=== PATIENT | female | born 1930 | race Caucasian/White ===

== ENCOUNTER 2016-05-27 10:24 | Inpatient (IN) ==
--- NOTE | 2016-05-27 10:51 | Emergency Department Note ---
SOB HPI - General Chief Complaint: Shortness of Breath/Dyspnea Stated Complaint: Shortness of breath/cough Time Seen by Provider: 05/27/16 10:47 Source: patient, family Mode of arrival: wheelchair Limitations: no limitations - History of Present Illness This patient was seen last Wednesday with a cough syndrome and was prescribed Zithromax. She continues to cough and feel short of breath and is not getting much better. Denies any other symptoms. Severity: moderate Improves with: oxygen Worsens with: nothing Known history of: COPD - Related Data Home Medications Medication Instructions Recorded Confirmed cholecalciferol (vitamin D3) 2,000 2,000 unit PO QDAY tab 11/26/14 04/29/16 unit tablet multivitamin tablet 1 tab PO QDAY tab 11/26/14 04/29/16 ondansetron 4 mg disintegrating 4 mg PO TID PRN tab 11/26/14 04/29/16 tablet lenalidomide 2.5 mg capsule 2.5 mg PO QDAY cap 03/30/16 04/29/16 ferrous sulfate 325 mg (65 mg 325 mg PO BID tab 04/29/16 04/29/16 iron) tablet triamterene 37.5 1 tab-cap PO DAILYP PRN 04/29/16 05/27/16 mg-hydrochlorothiazide 25 mg tablet Furosemide [Lasix] 20 mg PO DAILY 05/27/16 05/27/16 Ipratropium [Atrovent] 2.5 ml INHALATION Q4H 05/27/16 05/27/16 Previous Rx's Medication Instructions Recorded arformoterol 15 mcg/2 mL solution 2 ml INHALATION BID 30 Days 08/06/15 for nebulization budesonide 0.5 mg/2 mL suspension 0.5 mg INHALATION BID 90 Days 08/06/15 for nebulization potassium chloride ER 10 mEq 10 meq PO QDAY 90 Days 02/17/16 tablet,extended release escitalopram 20 mg tablet 40 mg PO QDAY 90 Days 02/25/16 alprazolam 0.5 mg tablet 0.5 mg PO BID 30 Days 03/30/16 Allergies Allergy/AdvReac Type Severity Reaction Status Date / Time Penicillins Allergy Intermediate Difficulty Verified 05/27/16 15:32 Breathing Review of Systems Constitutional: Denies: fever, chills Eyes: Denies: eye pain ENT ED: Denies: ear pain Cardiovascular: Denies: chest pain, palpitations Respiratory: Reports: cough, dyspnea Gastrointestinal: Denies: abdominal pain, nausea, vomiting Genitourinary: Denies: urgency Musculoskeletal: Denies: back pain Integumentary: Denies: rash Neurological: Denies: headache Psychiatric: Denies: anxiety Past Medical History - Past Medical History Medical history: Reports: cancer (myelodysplastic syndrome melanoma), COPD, hypertension, osteoporosis, other (hemorrhoid, psoriasis, melanoma, chronic anemia) Surgical history ED: Reports: orthopedic, other (back surgery), other (parotid gland tumor) Psychiatric history: Reports: anxiety, depression Physical Exam - General Limitations: no limitations General appearance: alert - Head Head exam: atraumatic - Eye Eye exam: Present: normal appearance - ENT ENT exam: normal exam - Neck Neck exam: Present: normal inspection - Chest Chest inspection: Present: normal inspection - Respiratory Respiratory exam: Present: other (scattered rhonchi) - Cardiovascular Cardiovascular exam: Present: regular rate, normal rhythm, normal heart sounds - Abdominal Exam Abdominal exam: Present: soft. Absent: distention, tenderness - Neurological Exam Neurological exam: Present: alert - Psychiatric Psychiatric exam: Present: normal affect - Skin Skin exam: Present: warm, dry Course Vital Signs Temperature 97.5 F L 05/27/16 10:24 Pulse Rate 85 05/27/16 10:24 Respiratory Rate 28 H 05/27/16 10:24 Blood Pressure 96/65 05/27/16 10:24 Pulse Oximetry (%) 92 05/27/16 10:24 Temperature 98.5 F 05/28/16 00:00 Pulse Rate 63 05/28/16 02:53 Respiratory Rate 24 05/28/16 02:53 Blood Pressure 109/58 05/28/16 02:53 Pulse Oximetry (%) 94 05/28/16 02:53 Shortness of Breath/Dyspnea - Lab Data Lab results reviewed: Yes I reviewed the patient's lab results. Result diagrams: 05/28/16 04:15 05/28/16 04:15 Lab Results 05/27/16 05/27/16 05/27/16 Range/Units 10:40 10:40 10:40 WBC 3.2 L (4.5-11.0) K/mcL RBC 3.88 L (4.00-5.20) M/mcL Hgb 11.8 L (12.0-15.0) g/dL Hct 38.3 (36.0-48.0) % MCV 98.8 (80.0-100.0) fL MCH 30.5 (26.0-34.0) pg MCHC 30.8 L (31.0-36.0) g/dL RDW 22.7 H (11.5-14.5) % Plt Count 154 (140-440) K/mcL MPV 10.8 H (7.4-10.4) fL Gran % 54.5 (38.0-78.0) % Lymph % (Auto) 22.1 (15.5-49.0) % [place] % (Auto) 19.7 H (1.0-9.0) % Eos % (Auto) 1.8 (0.0-7.0) % Baso % (Auto) 1.9 (0.0-2.0) % Gran # 1.7 L (1.8-8.0) K/mcL Lymph # 0.7 L (1.5-4.8) K/mcL [place] # 0.6 (0.1-0.9) K/mcL Eos # 0.1 (0.0-0.7) K/mcL Baso # 0.1 (0.0-0.3) K/mcL Differential Comment (()) VBG Lactic Acid (0.5-2.2) mmol/L Sodium 139 (133-145) mmol/L Potassium 3.6 (3.3-5.1) mmol/L Chloride 94 L (96-108) mmol/L Carbon Dioxide 35 H (22-30) mmol/L Anion Gap 10.0 (8-16) BUN 41 H (8-23) mg/dl Creatinine 1.3 H (0.6-1.1) mg/dl GFR Calculation 37 Glucose 129 H (70-105) mg/dL Hemoglobin A1c 4.6 (4.0-6.0) % HGB Estim Average Glucose 85 mg/dL Calcium 9.8 (8.6-10.4) mg/dl Total Bilirubin 1.2 H (0.0-1.0) mg/dL AST 8 (0-37) U/l ALT 14 (0-40) U/l Alkaline Phosphatase 73 (39-117) U/L Total Protein 6.5 (5.9-8.4) gm/dL Albumin 3.7 (3.2-5.2) gm/dL Globulin 2.8 (2.2-3.7) gm/dL Albumin/Globulin Ratio 1.3 (1.0-2.3) Urine Color Urine Appearance Urine pH (5.0-9.0) Ur Specific [place] (1.000-1.035) Urine Protein (NEG) mg/dL Urine Glucose (UA) (NEG) mg/dL Urine Ketones (NEG) mg/dL Urine Occult Blood (<0.03) mg/dL Urine Nitrate (NEG) Urine Bilirubin (NEG) mg/dL Urine Urobilinogen (NEG) mg/dL Ur Leukocyte Esterase (NEG) /uL Ur Culture Indicated? 05/27/16 05/27/16 Range/Units 11:09 13:29 WBC (4.5-11.0) K/mcL RBC (4.00-5.20) M/mcL Hgb (12.0-15.0) g/dL Hct (36.0-48.0) % MCV (80.0-100.0) fL MCH (26.0-34.0) pg MCHC (31.0-36.0) g/dL RDW (11.5-14.5) % Plt Count (140-440) K/mcL MPV (7.4-10.4) fL Gran % (38.0-78.0) % Lymph % (Auto) (15.5-49.0) % [place] % (Auto) (1.0-9.0) % Eos % (Auto) (0.0-7.0) % Baso % (Auto) (0.0-2.0) % Gran # (1.8-8.0) K/mcL Lymph # (1.5-4.8) K/mcL [place] # (0.1-0.9) K/mcL Eos # (0.0-0.7) K/mcL Baso # (0.0-0.3) K/mcL Differential Comment (()) VBG Lactic Acid 0.9 (0.5-2.2) mmol/L Sodium (133-145) mmol/L Potassium (3.3-5.1) mmol/L Chloride (96-108) mmol/L Carbon Dioxide (22-30) mmol/L Anion Gap (8-16) BUN (8-23) mg/dl Creatinine (0.6-1.1) mg/dl GFR Calculation Glucose (70-105) mg/dL Hemoglobin A1c (4.0-6.0) % HGB Estim Average Glucose mg/dL Calcium (8.6-10.4) mg/dl Total Bilirubin (0.0-1.0) mg/dL AST (0-37) U/l ALT (0-40) U/l Alkaline Phosphatase (39-117) U/L Total Protein (5.9-8.4) gm/dL Albumin (3.2-5.2) gm/dL Globulin (2.2-3.7) gm/dL Albumin/Globulin Ratio (1.0-2.3) Urine Color Yellow Urine Appearance Clear Urine pH 5.0 (5.0-9.0) Ur Specific [place] 1.015 (1.000-1.035) Urine Protein Neg (NEG) mg/dL Urine Glucose (UA) Negative (NEG) mg/dL Urine Ketones Neg (NEG) mg/dL Urine Occult Blood Neg (<0.03) mg/dL Urine Nitrate Neg (NEG) Urine Bilirubin Neg (NEG) mg/dL Urine Urobilinogen Neg (NEG) mg/dL Ur Leukocyte Esterase Neg (NEG) /uL Ur Culture Indicated? No - Radiology Data Radiology results reviewed: Yes I reviewed the patient's radiology results. (x- ray does show basilar infiltrates) Disposition Clinical Impression: Community acquired pneumonia Disposition: Xfer As Inpt ([facility]) Condition: Fair
[2016-05-27] MEDS ORDERED: IPRATROPIUM/ALBUTEROL 3 ML AMPUL.NEB NEB ONE (10:53)
[2016-05-27] MEDS: 0.9 % SODIUM CHLORIDE 1,000 ML IV SCH ×2 (11:23→15:10)
[2016-05-27 11:24] LABS: Basophils # (Auto) 0.1 K/mcL (0.0-0.3); Basophils % (Auto) 1.9 % (0.0-2.0); Eosinophils # (Auto) 0.1 K/mcL (0.0-0.7); Eosinophils % (Auto) 1.8 % (0.0-7.0); Granulocytes % (Auto) 54.5 % (38.0-78.0); Lymphocytes # (Auto) 0.7 K/mcL (1.5-4.8); Lymphocytes % (Auto) 22.1 % (15.5-49.0); Mean Cell Volume 98.8 fL (80.0-100.0); Mean Corpuscular HGB Conc 30.8 g/dL (31.0-36.0); Mean Corpuscular Hemoglobin 30.5 pg (26.0-34.0); Monocytes # (Auto) 0.6 K/mcL (0.1-0.9); Monocytes % (Auto) 19.7 % (1.0-9.0); Platelet Count 154 K/mcL (140-440); RBC 3.88 M/mcL (4.00-5.20); Red Cell Distribution Width 22.7 % (11.5-14.5)
--- NOTE | 2016-05-27 11:41 | XRay Report ---
CLINICAL INFORMATION: Cough and shortness of breath - history COPD COMPARISON: 05/19/2016 FINDINGS: The heart is borderline enlarged, but unchanged. Mediastinum and pulmonary vessels are normal. COPD changes with scattered scarring both lungs seen - as before. A small developing infiltrate in the left lateral base is noted with a possible small developing infiltrate in the right lateral base. Small bilateral pleural effusions IMPRESSION: Small bibasilar infiltrates and effusions. Severe COPD Interpreted and Authenticated by: Jamie Oropeza 05/27/16
[2016-05-27] MEDS ORDERED: cefTRIAXone 1 GM in DEXTROSE 5% IN WATER 50 ML IV ONE (11:45)
[2016-05-27] MEDS ORDERED: LEVOFLOXACIN 500 MG/100 ML BAG IV ONE (11:45)
[2016-05-27 11:52] LABS: ALT/SGPT 14 U/l (0-40); Albumin 3.7 gm/dL (3.2-5.2); Albumin/Globulin Ratio 1.3 (1.0-2.3); Alkaline Phosphatase 73 U/L (39-117); Blood Urea Nitrogen 41 mg/dl (8-23)
[2016-05-27 13:53] LABS: Appearance,Urine CLEAR; Bilirubin,Urine NEG (NEG); Color,Urine YELLOW; Glucose,Urine (UA) NEGATIVE (NEG); Leukocyte Esterase,Urine NEG /uL (NEG); Nitrate,Urine NEG (NEG); Protein,Urine NEG (NEG); Specific Gravity,Urine 1.015 (1.000-1.035); Urine Blood NEG mg/dL (<0.03); Urobilinogen,Urine NEG (NEG)
--- NOTE | 2016-05-27 15:13 | Internal Med History&Physical ---
Medical - H&P: HPI Patient information: Note initiated : 05/27/16 at 3:08 pm Service Date, if different from initiated Date: [] Patient: Rochelle Olivas 85 y/o F admitted on 05/27/16 for SOB/Cough. Chief Complaint: [] History of present illness: Ms. Olivas is a 85 year old female with a long-standing history of COPDand long past history of smoking. She was seen in the emergency room about one week ago with shortness of breath, and was diagnosed with early pneumonia. She was treated with a Z-Ulices. She has she really just has not gotten any better over the last week, and is having persistent cough, which is minimally productive. She continues to feel more short of breath than usual and feels weak. She denies fever or chills, headaches or dizziness, new eye or ear symptoms, sore throat, chest pain or palpitations, abdominal pain nausea or vomiting, diarrhea. She does have occasional constipation. She does admit that she has been steadily losing weight over the last several years, and has lost about 30 pounds. ER evaluation showed bibasilar pneumonia, and reported O2 saturation of 79% on 4 L initially, which eventually ramonita to 90%. Lactic acid is normal, white blood cell count is low, due to myelodysplasia. BUN/creatinine are elevated as is serum CO2. Medical History Abnormal electrocardiogram (Acute) Chronic abnormality on EKG, low level exercise cardiolite in 2005 with normal scan, declines restratification Acute exacerbation of chronic obstructive airways disease (Acute) Back pain (Acute) Low, currently on no analgesic Basal cell carcinoma (Acute) dermatology followup with Carlyn Rios Colon polyps (Acute 06/08/14) Hyperplastic and adenomatous polyps and angiodysplasia through DR Mcintyre. This is now on a five year sequencing. Constipation (Acute) Degenerative arthritis (Acute) Multi joint, currently on no analgesic. MRI on the hip in March of 2010, currently stable External hemorrhoid (Acute) Fecal impaction (Acute) Hip pain (Acute) Right Leg pain (Acute) Right Melanoma (Acute) on left lower extremity; dermatology followup with Carlyn Rios Osteopenia (Acute) Bone density in 2006 showing osteopenia; stable vitamin D level in 2009, declines rescreening Osteoporosis screening (Acute) Bone density in 2006 showing osteopenia; stable vitamin D level in 2009, declines rescreening Peptic ulcer disease (Acute) surgery done, currently stable Psoriasis (Acute) dermatology followup with Carlyn Rios Radiculopathy of leg (Acute) Right leg, Appears stable at this point Tobacco use (Acute) Ex smoker in 2005 with component of obstructive lung disease; pulmonary functions in Jan; last chest x ray in Feb and now every other year. Immunization are up to date. Scanning CT was discussed Anemia (Chronic 08/29/14) Currently stable--hematology 09/2015,bone marrow,myelodysplasia Anxiety (Chronic 06/25/14) COPD (chronic obstructive pulmonary disease) (Chronic) With increasing exertional dyspnea HOBBS (dyspnea on exertion) (Chronic) Edema (Chronic) Peripheral, improved with diuretic, probably secondary to core pulmonale Encounter for Health Maintenance Examination in Adult (Chronic) Hypertension (Chronic) Stable on diuretics Vitamin B12 deficiency (Chronic) Currently stable Angiodysplasia (Inactive) through Dr Mcintyre. This is now on five year sequencing Bursitis of hip (Inactive) Right Fibrocystic disease of breast (Inactive) Cystic breast change; mammogram every other year, which will be due next year Granulocytopenia (Inactive) Mild Headache (Inactive) Emergency room visit with severe headache in May; extensive workup described above, non recurrent Onychomycosis (Inactive) in the feet, currently completing Lamisil Parotid tumor (Inactive) Status postop benign parotid tumor in 1977 Rectal bleeding (Inactive 06/07/14) Surgical History History of colonoscopy (Acute 06/08/14) 03/10/2010-Hyperplastic and adenomatous polyps, and angiodysplasia through Dr Mcintyre. This is now on five year sequencing. History of lumbar discectomy (Acute) Previous, back pain flare with MRI in 01/2011, currently stable History of skin cancer (Acute) Melanoma off her leg in Jan History of parotidectomy (Inactive) Benign parotid tumor Medication List - Last Reconciled 04/29/16 by Nafisa Eason CMA [4L oxygen continuous with portable tank via nasal cannula ] alprazolam 0.5 mg PO BID 30 days arformoterol 2 mL Inhalation BID 30 days aspirin 81 mg PO QDAY budesonide 0.5 mg Inhalation BID 90 days cholecalciferol (vitamin D3) 2,000 units PO QDAY escitalopram (Lexapro) 40 mg (2 x 20 mg) PO QDAY 90 days ferrous sulfate (Feosol) 325 mg PO BID furosemide (Lasix) 20 mg PO QDAY 90 days hydrocortisone acetate 25 mg RC DAILY ipratropium bromide 2.5 mL Inhalation TID lenalidomide (Revlimid) 2.5 mg PO QDAY multivitamin tablet 1 tab PO QDAY ondansetron 4 mg PO TID 3 doses PRN potassium chloride ER 10 mEq PO QDAY 90 days triamterene-hydrochlorothiazid 37.5-25 mg (Maxzide-25mg) 1 tab-cap PO QDAY vitamin [id number] acid 500-400 mcg 1 tab PO QDAY Allergies/Adverse Reactions Penicillins Allergy (Unknown, Verified 04/29/16 11:28) Unknown Family History her father had heart problems. She doesn't recall much else in the way of family history. Cousins - colon cancer. Social History household members: alone housing: assisted living facility lives independently: No (Resides at [facility]) marital status: occupational status: retired smoking status: Former smoker- she smoked from age 18 to about age 70. alcohol intake frequency: a few times a month substance use type: does not use Medical - H&P: Meds Home Medications Medication Instructions Recorded Confirmed Type cholecalciferol (vitamin D3) 2,000 2,000 unit PO QDAY tab 11/26/14 04/29/16 History unit tablet multivitamin tablet 1 tab PO QDAY tab 11/26/14 04/29/16 History ondansetron 4 mg disintegrating 4 mg PO TID PRN tab 11/26/14 04/29/16 History tablet vitamin B12 500 mcg-folic acid 400 1 tab PO QDAY tab 11/26/14 04/29/16 History mcg tablet aspirin 81 mg tablet,delayed 81 mg PO QDAY 03/30/16 04/29/16 History release lenalidomide 2.5 mg capsule 2.5 mg PO QDAY cap 03/30/16 04/29/16 History ferrous sulfate 325 mg (65 mg 325 mg PO BID tab 04/29/16 04/29/16 History iron) tablet triamterene 37.5 1 tab-cap PO DAILYP PRN 04/29/16 05/27/16 History mg-hydrochlorothiazide 25 mg tablet Furosemide [Lasix] 20 mg PO DAILY 05/27/16 05/27/16 History Ipratropium [Atrovent] 2.5 ml INHALATION Q4H 05/27/16 05/27/16 History Allergies Allergy/AdvReac Type Severity Reaction Status Date / Time Penicillins Allergy Intermediate Difficulty Verified 05/27/16 15:32 Breathing Medical - H&P: Exam - Constitutional Vitals: Temp Pulse Resp BP Pulse Ox 97.5 F L 78 22 90/53 94 05/27/16 10:24 05/27/16 14:45 05/27/16 14:45 05/27/16 14:45 05/27/16 14:45 Exam: on exam, she is an elderly female who is a bit dyspneic. She is otherwise alert and cooperative. Head: Is normocephalic, atraumatic. temporal wasting is noted. eyes: PERRLA, EOMI, anicteric. Ears:TMs and canals are clear pharynx: Mucosa is very dry She is edentulous. Neck: Is supple, without obvious lymphadenopathy, JVD, thyromegaly,bruits. Cardiac exam: Shows an irregularly irregular rhythm, with controlled rate. There are no obvious murmurs, rubs, gallops. Lungs: She has decreased breath sounds throughout all lung terry, with a few crackles at the bases. There is no definite wheezing or rhonchi heard. She has a very wet loose sounding cough.she does not bring up much with this. Abdomen: Is soft and nontender with no obvious masses. Bowel sounds are active. Extremities:Show no cyanosis or clubbing. She has about 1+ pitting edema at the ankles.Neurologic exam: Is grossly nonfocal. Skin exam:Shows her to be extraordinarily thin, but otherwise there are no rashes or other worrisome lesions noted. Medical - H&P: Reslt - Labs CBC & Chem 7: 05/27/16 10:40 05/27/16 15:55 Labs: CBC differential shows 1700 granulocytes, 700 lymphocytes Lactic acid is normal at 0.9 urinalysis is within normal limits. EKG shows sinus arrhythmia with a variable rate ranging from about 92 120, with some mild ST sagging noted increased to 3 and F, and V3 for through V6 chest x-ray from May 27, 2016 shows small bibasilar infiltrates and effusions. There is borderline cardiomegaly and COPD changes are noted. There are small bilateral pleural effusions. troponin is less than 0.01 [place] 3806 sputum Gram stain shows moderate white blood cells many gram-negative bacilli, and few to moderate gram positive cocci and gram-positive bacilli Medical - H&P: A/P (1) Bilateral pneumonia Current visit: Yes Status: Acute (2) ARF (acute renal failure) Current visit: Yes Status: Acute (3) Myelodysplasia (myelodysplastic syndrome) Current visit: No Status: Chronic #1. Pulmonary. This patient presents with probable bilateral lower lobe pneumonia, which is not responding adequately to outpatient treatment. She presented with moderate hypoxia and dehydration today. She has been admitted for more aggressive care. -cover with IV Rocephin. She is status post complete course of Zithromax.-- -Bronchodilators, oxygen, pulmonary toilet.- -IV steroids. -d-dimer is mildly positive, so she does not improve quickly, we may check a CT angiogram. #2. Acute renal failure. -iV fluid hydration. #3. CODE STATUS:The patient and her son agreed to a DNR CODE STATUS. #4. DVT prophylaxis: Subcutaneous heparin. #5. Neutropenia, in the setting of myelodysplasia. Continue to follow. this visit took about 60 minutes, to review the patient's records, review her case with the ER M.Karan, interview and examine her, and write orders.
[2016-05-27] MEDS ORDERED: 0.9 % SODIUM CHLORIDE 1,000 ML IV SCH (15:17)
[2016-05-27] MEDS ORDERED: MAGNESIUM HYDROXIDE 30 ML ORAL.SUSP PO PRN (15:17)
[2016-05-27] MEDS ORDERED: DOCUSATE SODIUM 100 MG CAPSULE PO PRN (15:17)
[2016-05-27] MEDS ORDERED: ALBUTEROL SULFATE 2.5 MG/3 ML NEBULIZER NEB PRN (15:17)
[2016-05-27] MEDS ORDERED: ONDANSETRON 4 MG/2 ML VIAL IV PRN (15:17)
[2016-05-27] MEDS: POTASSIUM CHLORIDE 20 MEQ in 0.45 % SODIUM CHLORIDE 1,000 ML IV SCH (16:30)
[2016-05-27 17:04] LABS: ALT/SGPT 10 U/l (0-40); Albumin 2.9 gm/dL (3.2-5.2); Albumin/Globulin Ratio 1.2 (1.0-2.3); Alkaline Phosphatase 57 U/L (39-117); Bilirubin,Direct 0.2 mg/dL (0.0-0.3); Blood Urea Nitrogen 36 mg/dl (8-23); Gamma Glutamyl Transpeptidase 8 U/L (5-36); Magnesium 2.1 mg/dL (1.6-2.5); Phosphorous 3.2 mg/dL (2.7-4.5); Uric Acid 7.4 mg/dL (2.5-8.0)
[2016-05-27] MEDS: metroNIDAZOLE 500 MG/100 ML BAG IV SCH ×2 (18:01→23:21)
[2016-05-27 18:15] LABS: Hemoglobin A1C 4.6 % HGB (4.0-6.0)
[2016-05-27] MEDS: IPRATROPIUM/ALBUTEROL 3 ML AMPUL.NEB NEB SCH (18:21)
[2016-05-27] MEDS: HEPARIN 5,000 UNIT/ML VIAL SQ SCH (20:44)
[2016-05-27] MEDS: methylPREDNISolone SOD SUCC 125 MG/2 ML VIAL IV SCH (20:46)
[2016-05-28] MEDS: IPRATROPIUM/ALBUTEROL 3 ML AMPUL.NEB NEB SCH ×4 (03:00→20:00)
[2016-05-28] MEDS: metroNIDAZOLE 500 MG/100 ML BAG IV SCH ×3 (05:44→21:25)
[2016-05-28 06:11] LABS: ALT/SGPT 9 U/l (0-40); Albumin 2.8 gm/dL (3.2-5.2); Alkaline Phosphatase 58 U/L (39-117); Bilirubin,Direct < 0.2 mg/dL (0.0-0.3); Blood Urea Nitrogen 33 mg/dl (8-23); Gamma Glutamyl Transpeptidase 8 U/L (5-36); Magnesium 2.1 mg/dL (1.6-2.5); Phosphorous 3.4 mg/dL (2.7-4.5); Uric Acid 7.1 mg/dL (2.5-8.0)
[2016-05-28 06:48] LABS: Basophils # (Auto) 0 K/mcL (0.0-0.3); Basophils % (Auto) 1.4 % (0.0-2.0); Eosinophils # (Auto) 0 K/mcL (0.0-0.7); Eosinophils % (Auto) 0.4 % (0.0-7.0); Lymphocytes # (Auto) 0.3 K/mcL (1.5-4.8); Lymphocytes % (Auto) 15.4 % (15.5-49.0); Mean Cell Volume 98.6 fL (80.0-100.0); Mean Corpuscular HGB Conc 31.5 g/dL (31.0-36.0); Monocytes # (Auto) 0.2 K/mcL (0.1-0.9); Monocytes % (Auto) 9.8 % (1.0-9.0); Platelet Count 105 K/mcL (140-440); RBC 3.33 M/mcL (4.00-5.20); Red Cell Distribution Width 22.6 % (11.5-14.5)
[2016-05-28] MEDS: cefTRIAXone 1 GM in DEXTROSE 5% IN WATER 50 ML IV SCH (09:00)
[2016-05-28] MEDS: POTASSIUM CHLORIDE 20 MEQ in 0.45 % SODIUM CHLORIDE 1,000 ML IV SCH ×3 (09:51→21:25)
[2016-05-28] MEDS: ASPIRIN 325 MG ENTERIC COATED TABLET PO SCH (10:33)
[2016-05-28] MEDS: FUROSEMIDE 20 MG TABLET PO SCH (10:33)
[2016-05-28] MEDS: ALPRAZolam 0.5 MG TABLET PO PRN ×2 (10:33→17:25)
[2016-05-28] MEDS: HEPARIN 5,000 UNIT/ML VIAL SQ SCH ×2 (10:33→21:25)
[2016-05-28] MEDS: methylPREDNISolone SOD SUCC 125 MG/2 ML VIAL IV SCH ×2 (10:33→21:25)
[2016-05-28] MEDS: VITAMIN D3 1,000 UNIT TABLET PO SCH (11:10)
[2016-05-28] MEDS: POTASSIUM CHLORIDE 10 MEQ TABLET PO SCH (11:10)
[2016-05-28] MEDS: ESCITALOPRAM 20 MG TABLET PO SCH (11:10)
--- NOTE | 2016-05-28 13:18 | Internal Med Progress Note ---
Medical - PN: Subj Patient information: Note initiated : 05/28/16 at 1:18 pm Service Date, if different from initiated Date: [] Patient: Rochelle Olivas 85 y/o F admitted on 05/27/16 for SOB/Cough, Pneumonia. Chief Complaint: [] Interval history: May 27, 2016;History of present illness: Ms. Olivas is a 85 year old female with a long-standing history of COPDand long past history of smoking. She was seen in the emergency room about one week ago with shortness of breath, and was diagnosed with early pneumonia. She was treated with a Z-Ulices. She has she really just has not gotten any better over the last week, and is having persistent cough, which is minimally productive. She continues to feel more short of breath than usual and feels weak. She denies fever or chills, headaches or dizziness, new eye or ear symptoms, sore throat, chest pain or palpitations, abdominal pain nausea or vomiting, diarrhea. She does have occasional constipation. She does admit that she has been steadily losing weight over the last several years, and has lost about 30 pounds. ER evaluation showed bibasilar pneumonia, and reported O2 saturation of 79% on 4 L initially, which eventually ramonita to 90%. Lactic acid is normal, white blood cell count is low, due to myelodysplasia. BUN/creatinine are elevated as is serum CO2. May 28, 2016: The patient is feeling quite a bit better today, although she continues to have a wet and weak cough. She is using a Yankauer suction device to clear her pharynx, and says that is working well. She is a little less short of breath than yesterday, and has less wheezing.. She continues to be quite weak when physical therapy tries to stand her up. She notes that the nebulizers here seemed to work better than her nebulizers at home, and wonders if her machine is too weak. he thinks she might have a little bit of constipation. She otherwise denies fever or chills, chest pain or palpitations, abdominal pain, nausea or vomiting , dysuria. - Constitutional Vitals: Vital Signs Temp Pulse Resp BP Pulse Ox 98.3 F 66 20 94/55 99 05/28/16 11:41 05/28/16 11:41 05/28/16 11:41 05/28/16 11:41 05/28/16 11:41 Period Temp Pulse Resp BP Sys/[place] Pulse Ox Last 24 Hr 97.7 F-98.7 F 59-85 16-24 91-109/52-69 91-100 Intake and Output 05/27/16 05/28/16 05/28/16 21:59 05:59 13:59 Intake Total 1050 / 1050 200 / 200 2500 / 2500 Output Total 200 / 200 200 / 200 500 / 500 Balance 850 / 850 0 / 0 1999 Intake & Output: Intake & Output 05/27/16 05/28/16 05/28/16 21:59 05:59 13:59 Intake Total 1050 / 1050 200 / 200 2500 / 2500 Output Total 200 / 200 200 / 200 500 / 500 Balance 850 / 850 0 / 0 1999 Intake: IV 800 / 800 100 / 100 2160 / 2160 Sodium Chloride 0.9% 1, 700 / 700 000 ml @ 250 mls/hr IV . Q4H TIFFANY Rx#:[id number] Potassium Chloride 20 Meq 1010 / 1010 In Sodium Chloride 0.45% 1,000 ml @ 75 mls/hr IV .[id number] TIFFANY Rx#: [id number] Dextrose 5% in Water 50 50 / 50 ml @ 100 mls/hr IV DAILY TIFFANY with Rocephin 1 gm Rx #:[id number] Oral 250 / 250 100 / 100 340 / 340 Output: Void Amount 200 / 200 200 / 200 500 / 500 Other: Meal Dinner Breakfast Percent of Meal Consumed 25% 75% # Voids 1 # Bowel Movements 1 Exam: on exam, she is an extremely slender and frail female, in no acute distress. She continues to have a weak and wet cough. neck is supple without obvious lymphadenopathy or JVD. Cardiac exam shows a rather irregular rhythm. Lungs have fairly decreased breath sounds throughout, but are mostly clear otherwise today. Extremities show about 1+ pitting edema. Neurologic exam is grossly nonfocal. Medical - PN: Obj Da - Labs CBC & Chem 7: 05/28/16 04:15 05/28/16 04:15 Labs: Abnormal Lab Results 05/28/16 05/28/16 05/27/16 04:15 04:15 15:55 WBC 2.1 L RBC 3.33 L Hgb 10.3 L Hct 32.8 L RDW 22.6 H Plt Count 105 L MPV 11.3 H Lymph % (Auto) 15.4 L [place] % (Auto) 9.8 H Gran # 1.5 L Lymph # 0.3 L D-Dimer 1.26 H Carbon Dioxide BUN 33 H Glucose 137 H NT-Pro-B Natriuret Pep Total Protein 5.5 L Albumin 2.8 L 05/27/16 05/27/16 15:55 15:55 WBC RBC Hgb Hct RDW Plt Count MPV Lymph % (Auto) [place] % (Auto) Gran # Lymph # D-Dimer Carbon Dioxide 34 H BUN 36 H Glucose NT-Pro-B Natriuret Pep 3806.0 H Total Protein 5.4 L Albumin 2.9 L Lactic acid is normal at 0.9, follow-up lactic acid was 1.2 urinalysis is within normal limits. EKG shows sinus arrhythmia with a variable rate ranging from about 92 120, with some mild ST sagging noted increased to 3 and F, and V3 for through V6 chest x-ray from May 27, 2016 shows small bibasilar infiltrates and effusions. There is borderline cardiomegaly and COPD changes are noted. There are small bilateral pleural effusions. troponin is less than 0.01 BNP is elevated at 3806 -dimer is 1.26. sputum Gram stain shows moderate white blood cells many gram-negative bacilli, and few to moderate gram positive cocci and gram-positive bacilli blood cultures are negative so far. Meds: Medications Acetaminophen (Tylenol) 650 mg PO Q6HP PRN PRN Reason: PAIN/FEVER > 101 Albuterol Sulfate (Ventolin) 2.5 mg NEB Q4HRT PRN PRN Reason: Shortness Of Breath Or Wheezing Albuterol/Ipratropium (Duoneb) 3 ml NEB Q6HRT [facility] Last Admin: 05/28/16 07:40 Dose: 3 ml Alprazolam (Xanax) 0.5 mg PO TIDP PRN PRN Reason: Anxiety Last Admin: 05/28/16 10:33 Dose: 0.5 mg Aspirin (Ecotrin) 81 mg PO DAILY [facility] Last Admin: 05/28/16 10:33 Dose: 81 mg Docusate Sodium (Colace) 100 mg PO BID PRN PRN Reason: Constipation Escitalopram Oxalate (Lexapro) 40 mg PO QDAY [facility] Last Admin: 05/28/16 11:10 Dose: 40 mg Furosemide (Lasix) 20 mg PO DAILY [facility] Last Admin: 05/28/16 10:33 Dose: 20 mg Heparin Sodium (Porcine) (Heparin) 5,000 unit SQ Q12 [facility] Last Admin: 05/28/16 10:33 Dose: 5,000 unit Potassium Chloride 20 meq/ (Sodium Chloride) 1,010 mls @ 75 mls/hr IV .[id number] [facility] Last Admin: 05/28/16 10:34 Dose: 75 mls/hr Ceftriaxone Sodium 1 gm/ (Dextrose) 50 mls @ 100 mls/hr IV DAILY [facility] Last Infusion: 05/28/16 09:30 Dose: Infused Metronidazole (Flagyl) 500 mg in 100 mls @ 100 mls/hr IV Q8 [facility] Last Infusion: 05/28/16 06:54 Dose: Infused Magnesium Hydroxide (Milk Of Magnesia) 30 ml PO DAILYP PRN PRN Reason: Constipation Methylprednisolone Sodium Succinate (Solu-Medrol) 80 mg IV Q12 [facility] Last Admin: 05/28/16 10:33 Dose: 80 mg Ondansetron HCl (Zofran) 4 mg IV Q4HP PRN PRN Reason: Nausea And Vomiting Potassium Chloride (Kdur) 10 meq PO QAMCC [facility] Last Admin: 05/28/16 11:10 Dose: 10 meq Vitamin D (Vitamin D3) 2,000 unit PO DAILY [facility] Last Admin: 05/28/16 11:10 Dose: 2,000 unit Medical - PN: A/P - Time Spent With Patient Total time spent is greater than 50% in coordination of care (as documented) at patient's floor/unit and/or counseling patient: (1) Bilateral pneumonia Status: Acute Current Visit: Yes (2) ARF (acute renal failure) Status: Acute Current Visit: Yes (3) Myelodysplasia (myelodysplastic syndrome) Status: Chronic Current Visit: No - Narrative A/P Narrative: #1. Pulmonary. This patient presents with probable bilateral lower lobe pneumonia, which is not responding adequately to outpatient treatment. She presented with moderate hypoxia and dehydration. She has been admitted for more aggressive care. -overall, she does appear quite a bit improved today, but still quite weak. Continue with current treatment plan. -covered with IV Rocephin. She is status post complete course of Zithromax.-- -Bronchodilators, oxygen, pulmonary toilet.- -IV steroids. -sputum culture ID and sensitivity is still pending. -d-dimer is mildly positive, so she does not improve quickly, we may check a CT angiogram. #2. Acute renal failure. -BUN/creatinine are improving with iV fluid hydration. #3. CODE STATUS:The patient and her son agreed to a DNR CODE STATUS. #4. DVT prophylaxis: Subcutaneous heparin. #5. Neutropenia, in the setting of myelodysplasia. Continue to follow. #6. GI. Add Colace for concerns about constipation. approximately 30 minutes has been sent so far today, reviewing test results, interviewing and examining the patient, reviewing plan of care with she and her nurse, and writing orders. Medical - PN: Qual - Stroke Symptom Onset Unknown: No - VTE Deep Vein Thrombosis/Pulmonary Embolism Present on Admission: No
[2016-05-29] MEDS: IPRATROPIUM/ALBUTEROL 3 ML AMPUL.NEB NEB SCH ×5 (00:30→18:11)
[2016-05-29] MEDS: metroNIDAZOLE 500 MG/100 ML BAG IV SCH ×3 (05:11→22:31)
[2016-05-29 06:12] LABS: Basophils # (Auto) 0 K/mcL (0.0-0.3); Basophils % (Auto) 0.6 % (0.0-2.0); Eosinophils # (Auto) 0 K/mcL (0.0-0.7); Eosinophils % (Auto) 0.1 % (0.0-7.0); Granulocytes % (Auto) 78.7 % (38.0-78.0); Lymphocytes # (Auto) 0.2 K/mcL (1.5-4.8); Lymphocytes % (Auto) 7.4 % (15.5-49.0); Mean Cell Volume 100.1 fL (80.0-100.0); Mean Corpuscular Hemoglobin 31.1 pg (26.0-34.0); Monocytes # (Auto) 0.4 K/mcL (0.1-0.9); Monocytes % (Auto) 13.2 % (1.0-9.0); Platelet Count 123 K/mcL (140-440); RBC 3.29 M/mcL (4.00-5.20); Red Cell Distribution Width 22.8 % (11.5-14.5)
[2016-05-29 06:42] LABS: ALT/SGPT 10 U/l (0-40); Albumin 2.8 gm/dL (3.2-5.2); Albumin/Globulin Ratio 1.2 (1.0-2.3); Alkaline Phosphatase 55 U/L (39-117); Bilirubin,Direct < 0.2 mg/dL (0.0-0.3); Blood Urea Nitrogen 35 mg/dl (8-23); Gamma Glutamyl Transpeptidase 8 U/L (5-36); Phosphorous 3.1 mg/dL (2.7-4.5); Uric Acid 7.5 mg/dL (2.5-8.0)
[2016-05-29] MEDS: HEPARIN 5,000 UNIT/ML VIAL SQ SCH ×2 (09:21→22:32)
[2016-05-29] MEDS: VITAMIN D3 1,000 UNIT TABLET PO SCH (09:21)
[2016-05-29] MEDS: POTASSIUM CHLORIDE 10 MEQ TABLET PO SCH (09:22)
[2016-05-29] MEDS: FUROSEMIDE 20 MG TABLET PO SCH (09:22)
[2016-05-29] MEDS: POTASSIUM CHLORIDE 20 MEQ in 0.45 % SODIUM CHLORIDE 1,000 ML IV SCH ×2 (09:23→14:12)
[2016-05-29] MEDS: ESCITALOPRAM 20 MG TABLET PO SCH (09:23)
[2016-05-29] MEDS: cefTRIAXone 1 GM in DEXTROSE 5% IN WATER 50 ML IV SCH (09:23)
[2016-05-29] MEDS: methylPREDNISolone SOD SUCC 125 MG/2 ML VIAL IV SCH ×2 (09:41→22:40)
--- NOTE | 2016-05-29 09:52 | XRay Report ---
CLINICAL INFORMATION: Follow pneumonia COMPARISON: 05/27/2016 FINDINGS: Moderate cardiomegaly has increased from previous study. Mediastinum is unremarkable. The pulmonary vessels are now moderately distended and there is mild interstitial edema throughout both lungs. Small vague infiltrates in both lateral bases have worsened slightly. No definite effusions. IMPRESSION: Mild CHF - new Small infiltrates in both lateral bases - slight progression Interpreted and Authenticated by: Jamie Oropeza 05/29/16
[2016-05-29] MEDS: ASPIRIN 81 MG TAB.CHEW PO SCH (12:38)
[2016-05-29] MEDS: ASPIRIN 325 MG ENTERIC COATED TABLET PO SCH (13:00)
--- NOTE | 2016-05-29 16:43 | Internal Med Progress Note ---
Medical - PN: Subj Patient information: Note initiated : 05/29/16 at 4:43 pm Service Date, if different from initiated Date: [] Patient: Rochelle Olivas 85 y/o F admitted on 05/27/16 for SOB/Cough, Pneumonia. Chief Complaint: [] Interval history: May 27, 2016;History of present illness: Ms. Olivas is a 85 year old female with a long-standing history of COPDand long past history of smoking. She was seen in the emergency room about one week ago with shortness of breath, and was diagnosed with early pneumonia. She was treated with a Z-Ulices. She has she really just has not gotten any better over the last week, and is having persistent cough, which is minimally productive. She continues to feel more short of breath than usual and feels weak. She denies fever or chills, headaches or dizziness, new eye or ear symptoms, sore throat, chest pain or palpitations, abdominal pain nausea or vomiting, diarrhea. She does have occasional constipation. She does admit that she has been steadily losing weight over the last several years, and has lost about 30 pounds. ER evaluation showed bibasilar pneumonia, and reported O2 saturation of 79% on 4 L initially, which eventually ramonita to 90%. Lactic acid is normal, white blood cell count is low, due to myelodysplasia. BUN/creatinine are elevated as is serum CO2. May 28, 2016: The patient is feeling quite a bit better today, although she continues to have a wet and weak cough. She is using a Yankauer suction device to clear her pharynx, and says that is working well. She is a little less short of breath than yesterday, and has less wheezing.. She continues to be quite weak when physical therapy tries to stand her up. She notes that the nebulizers here seemed to work better than her nebulizers at home, and wonders if her machine is too weak. he thinks she might have a little bit of constipation. She otherwise denies fever or chills, chest pain or palpitations, abdominal pain, nausea or vomiting , dysuria. May 29, 2016: This morning, the patient was eating yogurt, and started to cough, and had trouble stopping. She became short of breath during this episode. She believes she is having intermittent postnasal drip, and at this causes coughing spasms. she was having some increased shortness of breath, but that improved after coughing stopped. -she denies fever or chills, chest pain or palpitations, abdominal painor nausea or vomiting or diarrhea, or dysuria. -she was offereda nutritional supplement drink last night, but claims it gave her cramps, so she does not want to do that anymore. - Constitutional Vitals: Vital Signs Temp Pulse Resp BP Pulse Ox 98.2 F 72 24 113/63 90 05/29/16 12:00 05/29/16 13:55 05/29/16 13:55 05/29/16 12:00 05/29/16 12:00 Period Temp Pulse Resp BP Sys/[place] Pulse Ox Last 24 Hr 98.0 F-98.9 F 64-166 18-25 102-131/63-85 90-98 Intake and Output 05/29/16 05/29/16 05/29/16 05:59 13:59 21:59 Intake Total 100 / 100 1160 / 1160 100 / 100 Output Total 200 / 200 600 / 600 Balance -100 / -100 560 / 560 100 / 100 Intake & Output: Intake & Output 05/29/16 05/29/16 05/29/16 05:59 13:59 21:59 Intake Total 100 / 100 1160 / 1160 100 / 100 Output Total 200 / 200 600 / 600 Balance -100 / -100 560 / 560 100 / 100 Intake: IV 100 / 100 1160 / 1160 100 / 100 Potassium Chloride 20 Meq 1010 / 1010 In Sodium Chloride 0.45% 1,000 ml @ 75 mls/hr IV .[id number] TIFFANY Rx#: [id number] Dextrose 5% in Water 50 50 / 50 ml @ 100 mls/hr IV DAILY TIFFANY with Rocephin 1 gm Rx #:[id number] Oral 0 / 0 Output: Void Amount 200 / 200 600 / 600 Other: Meal Breakfast Percent of Meal Consumed 40 Feeding Ability Assist with Tray Set Up # Voids 0 1 Exam: on exam, she is extraordinarily frail in appearance. Neck shows no obvious JVD. Cardiac exam shows a rather irregular rhythm. Lungs: Have markedly decreased breath sounds throughout, with scattered wheezes. Abdomen is soft and nontender. Extremities show 1+ pitting edema at the ankles.. Medical - PN: Obj Da - Labs CBC & Chem 7: 05/29/16 04:40 05/29/16 04:30 Labs: Abnormal Lab Results 05/29/16 05/29/16 05/28/16 04:40 04:30 04:15 WBC 3.4 L RBC 3.29 L Hgb 10.2 L Hct 32.9 L MCV 100.1 H RDW 22.8 H Plt Count 123 L MPV 11.2 H Gran % 78.7 H Lymph % (Auto) 7.4 L [place] % (Auto) 13.2 H Gran # Lymph # 0.2 L D-Dimer Carbon Dioxide 31 H BUN 35 H 33 H Glucose 148 H 137 H NT-Pro-B Natriuret Pep Total Protein 5.2 L 5.5 L Albumin 2.8 L 2.8 L 05/28/16 05/27/16 05/27/16 04:15 15:55 15:55 WBC 2.1 L RBC 3.33 L Hgb 10.3 L Hct 32.8 L MCV RDW 22.6 H Plt Count 105 L MPV 11.3 H Gran % Lymph % (Auto) 15.4 L [place] % (Auto) 9.8 H Gran # 1.5 L Lymph # 0.3 L D-Dimer 1.26 H Carbon Dioxide BUN Glucose NT-Pro-B Natriuret Pep 3806.0 H Total Protein Albumin 05/27/16 15:55 WBC RBC Hgb Hct MCV RDW Plt Count MPV Gran % Lymph % (Auto) [place] % (Auto) Gran # Lymph # D-Dimer Carbon Dioxide 34 H BUN 36 H Glucose NT-Pro-B Natriuret Pep Total Protein 5.4 L Albumin 2.9 L Lactic acid is normal at 0.9, follow-up lactic acid was 1.2 urinalysis is within normal limits. EKG shows sinus arrhythmia with a variable rate ranging from about 92 120, with some mild ST sagging noted increased to 3 and F, and V3 for through V6 chest x-ray from May 27, 2016 shows small bibasilar infiltrates and effusions. There is borderline cardiomegaly and COPD changes are noted. There are small bilateral pleural effusions. troponin is less than 0.01 BNP is elevated at 3806 -dimer is 1.26. sputum Gram stain shows moderate white blood cells many gram-negative bacilli, and few to moderate gram positive cocci and gram-positive bacilli. sputum culture is growing Haemophilus influenza , which should be sensitive to ampicillin blood cultures are negative so far. Meds: Medications Acetaminophen (Tylenol) 650 mg PO Q6HP PRN PRN Reason: PAIN/FEVER > 101 Albuterol Sulfate (Ventolin) 2.5 mg NEB Q4HRT PRN PRN Reason: Shortness Of Breath Or Wheezing Last Admin: 05/29/16 07:31 Dose: 2.5 mg Albuterol/Ipratropium (Duoneb) 3 ml NEB Q6HRT [facility] Last Admin: 05/29/16 13:55 Dose: 3 ml Alprazolam (Xanax) 0.5 mg PO TIDP PRN PRN Reason: Anxiety Last Admin: 05/28/16 17:25 Dose: 0.5 mg Aspirin (Aspirin) 81 mg PO DAILY [facility] Last Admin: 05/29/16 12:38 Dose: 81 mg Docusate Sodium (Colace) 100 mg PO BID PRN PRN Reason: Constipation Escitalopram Oxalate (Lexapro) 40 mg PO QDAY [facility] Last Admin: 05/29/16 09:23 Dose: 40 mg Furosemide (Lasix) 20 mg PO DAILY [facility] Last Admin: 05/29/16 09:22 Dose: 20 mg Heparin Sodium (Porcine) (Heparin) 5,000 unit SQ Q12 [facility] Last Admin: 05/29/16 09:21 Dose: 5,000 unit Potassium Chloride 20 meq/ (Sodium Chloride) 1,010 mls @ 75 mls/hr IV .[id number] [facility] Last Admin: 05/29/16 14:12 Dose: 75 mls/hr Ceftriaxone Sodium 1 gm/ (Dextrose) 50 mls @ 100 mls/hr IV DAILY [facility] Last Infusion: 05/29/16 09:53 Dose: Infused Metronidazole (Flagyl) 500 mg in 100 mls @ 100 mls/hr IV Q8 [facility] Last Infusion: 05/29/16 15:55 Dose: Infused Magnesium Hydroxide (Milk Of Magnesia) 30 ml PO DAILYP PRN PRN Reason: Constipation Methylprednisolone Sodium Succinate (Solu-Medrol) 80 mg IV Q12 [facility] Last Admin: 05/29/16 09:41 Dose: 80 mg Ondansetron HCl (Zofran) 4 mg IV Q4HP PRN PRN Reason: Nausea And Vomiting Potassium [facility] ([facility]) [facility] Last Admin: 05/29/16 09:22 Dose: 10 meq Vitamin D (Vitamin D3) 2,000 unit PO DAILY [facility] Last Admin: 05/29/16 09:21 Dose: 2,000 unit Medical - PN: A/P - Time Spent With Patient Total time spent is greater than 50% in coordination of care (as documented) at patient's floor/unit and/or counseling patient: (1) Bilateral pneumonia Status: Acute Current Visit: Yes (2) ARF (acute renal failure) Status: Acute Current Visit: Yes (3) Myelodysplasia (myelodysplastic syndrome) Status: Chronic Current Visit: No - Narrative A/P Narrative: #1. Pulmonary. This patient presents with probable bilateral lower lobe pneumonia, which is not responding adequately to outpatient treatment. She presented with moderate hypoxia and dehydration. She has been admitted for more aggressive care. -she is making some progress, but still remains quite weak. We will continue with current treatment. -covered with IV Rocephin. She is status post complete course of Zithromax.-- -Bronchodilators, oxygen, pulmonary toilet.- -IV steroids. -continue suction with hand-held Yankauer. -sputum culture suggest Haemophilus influenza A which should be susceptible to Rocephin. -d-dimer is mildly positive, so she does not improve quickly, we may check a CT angiogram. #2. Acute renal failure. -BUN/creatinine are improving with iV fluid hydration. #3. CODE STATUS:The patient and her son agreed to a DNR CODE STATUS. #4. DVT prophylaxis: Subcutaneous heparin. #5. Neutropenia, in the setting of myelodysplasia. Continue to follow. #6. GI. Add Colace for concerns about constipation. #7. Nutrition. I reviewed again today with the patient that we ideally need to get more calories and to her. She could use extra protein to help with healing and muscle mass, and extra calories in general help with her work of breathing. we will ask the fishing gear mechanic to see if she can come up with other ideas of things that the patient might be able to tolerate. this visit took approximately 30 minutes, to review patient's chest results, interview and examine her, review plan of care with her and with the nurses Medical - PN: Qual - Stroke Symptom Onset Unknown: No - VTE Deep Vein Thrombosis/Pulmonary Embolism Present on Admission: No
[2016-05-30] MEDS: IPRATROPIUM/ALBUTEROL 3 ML AMPUL.NEB NEB SCH ×4 (02:59→19:51)
[2016-05-30] MEDS: POTASSIUM CHLORIDE 20 MEQ in 0.45 % SODIUM CHLORIDE 1,000 ML IV SCH ×3 (04:12→20:34)
[2016-05-30] MEDS ORDERED: METOPROLOL TARTRATE 5 MG/5 ML VIAL IV ONE ×2 (04:45→04:58)
[2016-05-30] MEDS ORDERED: DIGOXIN 500 MCG/2 ML AMPUL IV ONE ×2 (05:03→05:16)
[2016-05-30] MEDS: metroNIDAZOLE 500 MG/100 ML BAG IV SCH ×3 (05:26→22:00)
[2016-05-30 06:19] LABS: Basophils # (Auto) 0 K/mcL (0.0-0.3); Basophils % (Auto) 0.6 % (0.0-2.0); Eosinophils # (Auto) 0 K/mcL (0.0-0.7); Eosinophils % (Auto) 0 % (0.0-7.0); Granulocytes % (Auto) 79.2 % (38.0-78.0); Lymphocytes # (Auto) 0.3 K/mcL (1.5-4.8); Lymphocytes % (Auto) 7.5 % (15.5-49.0); Mean Cell Volume 99.5 fL (80.0-100.0); Mean Corpuscular HGB Conc 31.5 g/dL (31.0-36.0); Mean Corpuscular Hemoglobin 31.3 pg (26.0-34.0); Monocytes # (Auto) 0.4 K/mcL (0.1-0.9); Monocytes % (Auto) 12.7 % (1.0-9.0); Platelet Count 128 K/mcL (140-440); RBC 3.37 M/mcL (4.00-5.20); Red Cell Distribution Width 22.7 % (11.5-14.5)
--- NOTE | 2016-05-30 06:49 | XRay Report ---
CLINICAL INFORMATION: Cardiac dysrhythmia - history CHF COMPARISON: 05/29/2016 portable chest. FINDINGS: The heart is moderately enlarged, but unchanged. Mitral annular calcifications are better seen on today's study. Mediastinum is unremarkable. Pulmonary vessels have decreased in caliber - now only mildly distended. Interstitial edema has improved. COPD changes are noted - stable no infiltrates IMPRESSION: Mild CHF - improved from yesterday Moderate COPD Interpreted and Authenticated by: Jamie Oropeza 05/30/16
[2016-05-30 06:57] LABS: ALT/SGPT 10 U/l (0-40); Albumin/Globulin Ratio 1.4 (1.0-2.3); Alkaline Phosphatase 49 U/L (39-117); Bilirubin,Direct < 0.2 mg/dL (0.0-0.3); Blood Urea Nitrogen 35 mg/dl (8-23); Gamma Glutamyl Transpeptidase 8 U/L (5-36); Magnesium 1.9 mg/dL (1.6-2.5); Phosphorous 2.6 mg/dL (2.7-4.5); Uric Acid 6.7 mg/dL (2.5-8.0)
[2016-05-30] MEDS: cefTRIAXone 1 GM in DEXTROSE 5% IN WATER 50 ML IV SCH (09:00)
[2016-05-30] MEDS: methylPREDNISolone SOD SUCC 125 MG/2 ML VIAL IV SCH ×2 (11:10→20:37)
[2016-05-30] MEDS: HEPARIN 5,000 UNIT/ML VIAL SQ SCH ×2 (11:10→20:37)
[2016-05-30] MEDS: ALPRAZolam 0.5 MG TABLET PO PRN (11:11)
[2016-05-30] MEDS: FUROSEMIDE 20 MG TABLET PO SCH (11:11)
[2016-05-30] MEDS: POTASSIUM CHLORIDE 10 MEQ TABLET PO SCH (11:11)
[2016-05-30] MEDS: ASPIRIN 81 MG TAB.CHEW PO SCH (11:11)
[2016-05-30] MEDS: VITAMIN D3 1,000 UNIT TABLET PO SCH (11:23)
[2016-05-30] MEDS: ESCITALOPRAM 20 MG TABLET PO SCH (11:24)
--- NOTE | 2016-05-30 14:36 | Internal Med Progress Note ---
Medical - PN: Subj Patient information: Note initiated : 05/30/16 at 2:35 pm Service Date, if different from initiated Date: [] Patient: Rochelle Olivas 85 y/o F admitted on 05/27/16 for SOB/Cough, Pneumonia. Chief Complaint: [] Interval history: May 27, 2016;History of present illness: Ms. Olivas is a 85 year old female with a long-standing history of COPDand long past history of smoking. She was seen in the emergency room about one week ago with shortness of breath, and was diagnosed with early pneumonia. She was treated with a Z-Ulices. She has she really just has not gotten any better over the last week, and is having persistent cough, which is minimally productive. She continues to feel more short of breath than usual and feels weak. She denies fever or chills, headaches or dizziness, new eye or ear symptoms, sore throat, chest pain or palpitations, abdominal pain nausea or vomiting, diarrhea. She does have occasional constipation. She does admit that she has been steadily losing weight over the last several years, and has lost about 30 pounds. ER evaluation showed bibasilar pneumonia, and reported O2 saturation of 79% on 4 L initially, which eventually ramonita to 90%. Lactic acid is normal, white blood cell count is low, due to myelodysplasia. BUN/creatinine are elevated as is serum CO2. May 28, 2016: The patient is feeling quite a bit better today, although she continues to have a wet and weak cough. She is using a Yankauer suction device to clear her pharynx, and says that is working well. She is a little less short of breath than yesterday, and has less wheezing.. She continues to be quite weak when physical therapy tries to stand her up. She notes that the nebulizers here seemed to work better than her nebulizers at home, and wonders if her machine is too weak. he thinks she might have a little bit of constipation. She otherwise denies fever or chills, chest pain or palpitations, abdominal pain, nausea or vomiting , dysuria. May 29, 2016: This morning, the patient was eating yogurt, and started to cough, and had trouble stopping. She became short of breath during this episode. She believes she is having intermittent postnasal drip, and at this causes coughing spasms. she was having some increased shortness of breath, but that improved after coughing stopped. -she denies fever or chills, chest pain or palpitations, abdominal painor nausea or vomiting or diarrhea, or dysuria. -she was offereda nutritional supplement drink last night, but claims it gave her cramps, so she does not want to do that anymore. May 30, 2016: i was called to see the patient around 5:00 this morning for rapid heart rate and jaw discomfort. her personnel monitor indicatedshe had developed atrial fibrillation. I suspect her jaw painmay have been tachycardia related ischemic pain. She was given IV metoprolol, which did not seem to have much effect. She was then given 0.25 of IV digoxin, and her heart rateslowly came down, and then she converted back to sinus rhythm. Her pain has resolved. I saw her again later this morning, and she no longer has any jaw discomfort. She denies fever or chills,chest pain or palpitations. She continues to have a very wet gurgly cough, and is able to suction some things out with the Yankauer suction. She continues to feel quite weak, and to not have much of an appetite. The paralegals to come up with a supplement that she seems to like, so she agrees to try to get at least 2 of those in a day now. Otherwise she denies abdominal pain, nausea or vomiting, diarrhea or constipation, dysuria. Her son is here today, and has questions about the events of this morning. I reviewed with him my thoughts on this. He says she has been extraordinarily fatigued over the last several months,which they believe is due to her bone marrow disorder and anemia. - Constitutional Vitals: Vital Signs Temp Pulse Resp BP Pulse Ox 99.2 F 77 16 119/82 95 05/30/16 04:00 05/30/16 13:36 05/30/16 13:36 05/30/16 05:13 05/30/16 07:56 Period Temp Pulse Resp BP Sys/[place] Pulse Ox Last 24 Hr 98.6 F-99.2 F 68-104 16-23 92-120/59-82 88-97 Intake and Output 05/30/16 05/30/16 05/30/16 05:59 13:59 21:59 Intake Total 1360 / 1360 Output Total 200 / 200 125 / 125 Balance 1160 / 1160 -125 / -125 Intake & Output: Intake & Output 05/30/16 05/30/16 05/30/16 05:59 13:59 21:59 Intake Total 1360 / 1360 Output Total 200 / 200 125 / 125 Balance 1160 / 1160 -125 / -125 Intake: IV 1110 / 1110 Potassium Chloride 20 Meq 1010 / 1010 In Sodium Chloride 0.45% 1,000 ml @ 75 mls/hr IV .[id number] [id number] Rx#: [id number] Oral 250 / 250 Output: Void Amount 200 / 200 125 / 125 Other: # Bowel Movements 1 1 Exam: on exam, currently the patient is awake and alert, and in no acute distress. She is rather annoyed that she cannot be discharged back to her assisted living facility yet.Neck is supple without lymphadenopathy. neck shows no obvious lymphadenopathy or JVD. Cardiac exam shows a rather irregular rhythm with controlled rate. Lungs:Show crackles mainly at the right base, otherwise breath sounds are markedly decreased throughout but without obvious rhonchi or wheezes. Abdomen is soft and nontender. Extremities show 1+ pitting edema just above the ankles and feet. Neurologic exam is grossly nonfocal. Medical - PN: Obj Da - Labs CBC & Chem 7: 05/30/16 03:45 05/30/16 03:45 Labs: Abnormal Lab Results 05/30/16 05/30/16 05/29/16 03:45 03:45 04:40 WBC 3.4 L 3.4 L RBC 3.37 L 3.29 L Hgb 10.6 L 10.2 L Hct 33.6 L 32.9 L MCV 100.1 H RDW 22.7 H 22.8 H Plt Count 128 L 123 L MPV 11.0 H 11.2 H Gran % 79.2 H 78.7 H Lymph % (Auto) 7.5 L 7.4 L Frontier % (Auto) 12.7 H 13.2 H Gran # Lymph # 0.3 L 0.2 L D-Dimer Carbon Dioxide 31 H BUN 35 H Glucose 130 H Phosphorus 2.6 L NT-Pro-B Natriuret Pep Total Protein 5.1 L Albumin 3.0 L Globulin 2.1 L 05/29/16 05/28/16 05/28/16 04:30 04:15 04:15 WBC 2.1 L RBC 3.33 L Hgb 10.3 L Hct 32.8 L MCV RDW 22.6 H Plt Count 105 L MPV 11.3 H Gran % Lymph % (Auto) 15.4 L Frontier % (Auto) 9.8 H Gran # 1.5 L Lymph # 0.3 L D-Dimer Carbon Dioxide 31 H BUN 35 H 33 H Glucose 148 H 137 H Phosphorus NT-Pro-B Natriuret Pep Total Protein 5.2 L 5.5 L Albumin 2.8 L 2.8 L Globulin 05/27/16 05/27/16 05/27/16 15:55 15:55 15:55 WBC RBC Hgb Hct MCV RDW Plt Count MPV Gran % Lymph % (Auto) Frontier % (Auto) Gran # Lymph # D-Dimer 1.26 H Carbon Dioxide 34 H BUN 36 H Glucose Phosphorus NT-Pro-B Natriuret Pep 3806.0 H Total Protein 5.4 L Albumin 2.9 L Globulin chest x-ray, May 30: There is moderate heart enlargement, which is unchanged. Interstitial edema has improved. COPD changes are stable. Lactic acid is normal at 0.9, follow-up lactic acid was 1.2 urinalysis is within normal limits. EKG shows sinus arrhythmia with a variable rate ranging from about 92 120, with some mild ST sagging noted increased to 3 and F, and V3 for through V6 chest x-ray from May 27, 2016 shows small bibasilar infiltrates and effusions. There is borderline cardiomegaly and COPD changes are noted. There are small bilateral pleural effusions. troponin is less than 0.01 BNP is elevated at 3806 -dimer is 1.26. sputum Gram stain shows moderate white blood cells many gram-negative bacilli, and few to moderate gram positive cocci and gram-positive bacilli. sputum culture is growing Haemophilus influenza , which should be sensitive to ampicillin blood cultures are negative so far. Meds: Medications Acetaminophen (Tylenol) 650 mg PO Q6HP PRN PRN Reason: PAIN/FEVER > 101 Albuterol Sulfate (Ventolin) 2.5 mg NEB Q4HRT PRN PRN Reason: Shortness Of Breath Or Wheezing Last Admin: 05/29/16 07:31 Dose: 2.5 mg Albuterol/Ipratropium (Duoneb) 3 ml NEB Q6HRT [facility] Last Admin: 05/30/16 13:35 Dose: 3 ml Alprazolam (Xanax) 0.5 mg PO TIDP PRN PRN Reason: Anxiety Last Admin: 05/30/16 11:11 Dose: 0.5 mg Aspirin (Aspirin) 81 mg PO DAILY [facility] Last Admin: 05/30/16 11:11 Dose: 81 mg Docusate Sodium (Colace) 100 mg PO BID PRN PRN Reason: Constipation Escitalopram Oxalate (Lexapro) 40 mg PO QDAY [facility] Last Admin: 05/30/16 11:24 Dose: 40 mg Furosemide (Lasix) 20 mg PO DAILY [facility] Last Admin: 05/30/16 11:11 Dose: 20 mg Heparin Sodium (Porcine) (Heparin) 5,000 unit SQ Q12 [facility] Last Admin: 05/30/16 11:10 Dose: 5,000 unit Potassium Chloride 20 meq/ (Sodium Chloride) 1,010 mls @ 75 mls/hr IV .[id number] [facility] Last Admin: 05/30/16 10:26 Dose: Not Given Ceftriaxone Sodium 1 gm/ (Dextrose) 50 mls @ 100 mls/hr IV DAILY [facility] Last Admin: 05/30/16 09:00 Dose: 100 mls/hr Metronidazole (Flagyl) 500 mg in 100 mls @ 100 mls/hr IV Q8 [facility] Last Admin: 05/30/16 05:26 Dose: 100 mls/hr Magnesium Hydroxide (Milk Of Magnesia) 30 ml PO DAILYP PRN PRN Reason: Constipation Methylprednisolone Sodium Succinate (Solu-Medrol) 80 mg IV Q12 [facility] Last Admin: 05/30/16 11:10 Dose: 80 mg Ondansetron HCl (Zofran) 4 mg IV Q4HP PRN PRN Reason: Nausea And Vomiting Potassium Chloride (Kdur) 10 meq PO QAMCC [facility] Last Admin: 05/30/16 11:11 Dose: 10 meq Vitamin D (Vitamin D3) 2,000 unit PO DAILY [facility] Last Admin: 05/30/16 11:23 Dose: 2,000 unit Medical - PN: A/P - Time Spent With Patient Total time spent is greater than 50% in coordination of care (as documented) at patient's floor/unit and/or counseling patient: (1) Bilateral pneumonia Status: Acute Current Visit: Yes (2) ARF (acute renal failure) Status: Acute Current Visit: Yes (3) Myelodysplasia (myelodysplastic syndrome) Status: Chronic Current Visit: No - Narrative A/P Narrative: #1. Pulmonary. This patient presents with probable bilateral lower lobe pneumonia, which is not responding adequately to outpatient treatment. She presented with moderate hypoxia and dehydration. She has been admitted for more aggressive care. -she is making some progress, but still remains quite weak. We will continue with current treatment. -covered with IV Rocephin. She is status post complete course of Zithromax.-- -Bronchodilators, oxygen, pulmonary toilet.- -IV steroids. -continue suction with hand-held Yankauer. -sputum culture suggest Haemophilus influenza A which should be susceptible to Rocephin. -d-dimer is mildly positive, so she does not improve quickly, we may check a CT angiogram. -plan of treatment was reviewed again today with the patient and with her son. She is taking a while to rebound, which is not unexpected given her extraordinarily frail baseline state. I am talking with respiratory therapy about possible chest physiotherapy versus a cappella device, to help mobilize secretions. Otherwise we will continue with current plan. I did discuss with her son that her long-term prognosis is quite poor, given her severe COPD, her malnourished state, and her myelodysplastic syndrome. #2. Acute renal failure. -BUN/creatinine are improving with iV fluid hydration. #3. CODE STATUS:The patient and her son agreed to a DNR CODE STATUS. #4. DVT prophylaxis: Subcutaneous heparin. #5. Neutropenia, in the setting of myelodysplasia. Continue to follow. #6. GI. Add Colace for concerns about constipation. #7. Nutrition. I reviewed again today with the patient that we ideally need to get more calories and to her. -paralegals did find a supplement that the patient likes, and has now agreed to take that at least twice a day, to improve calorie intake We can discussed that it's important to get protein to help heal and build muscle mass. #8. cardiac. -The patient developed atrial fib with some jaw discomfort early this morning. This resolved after IV doses of metoprolol and digoxin. Expect this was just triggered by the stress of her current illness. However we will check a set of cardiac enzymes and EKG and echocardiogram to follow-up. this was also reviewed with the patient and her son. So far today, approximately 45 minutes has been spent interviewing and examining the patient, reviewing plan of care with nursing staff, as well as with the patient and her son,giving urgent orders for her atrial fibrillation, and then doing a follow-up visit later this morning. Medical - PN: Qual - Stroke Symptom Onset Unknown: No - VTE Deep Vein Thrombosis/Pulmonary Embolism Present on Admission: No
[2016-05-30 16:19] LABS: Creatine Kinase 34 IU/L (24-170); Creatine Kinase MB 3.8 ng/ml (0-2.9)
[2016-05-31] MEDS ORDERED: DIGOXIN 500 MCG/2 ML AMPUL IV ONE ×2 (01:12→01:27)
[2016-05-31] MEDS ORDERED: FUROSEMIDE 20 MG/2 ML VIAL IV ONE ×2 (01:13→01:27)
[2016-05-31] MEDS: IPRATROPIUM/ALBUTEROL 3 ML AMPUL.NEB NEB SCH ×4 (01:39→19:40)
[2016-05-31 05:36] LABS: ALT/SGPT 12 U/l (0-40); Albumin 2.9 gm/dL (3.2-5.2); Albumin/Globulin Ratio 1.3 (1.0-2.3); Alkaline Phosphatase 47 U/L (39-117); Bilirubin,Direct < 0.2 mg/dL (0.0-0.3); Blood Urea Nitrogen 37 mg/dl (8-23); Gamma Glutamyl Transpeptidase 8 U/L (5-36); Magnesium 1.8 mg/dL (1.6-2.5); Phosphorous 2.1 mg/dL (2.7-4.5); Uric Acid 5.8 mg/dL (2.5-8.0)
[2016-05-31] MEDS: metroNIDAZOLE 500 MG/100 ML BAG IV SCH ×3 (05:41→21:46)
[2016-05-31 05:54] LABS: Basophils # (Auto) 0 K/mcL (0.0-0.3); Basophils % (Auto) 0.4 % (0.0-2.0); Eosinophils # (Auto) 0 K/mcL (0.0-0.7); Eosinophils % (Auto) 0.1 % (0.0-7.0); Granulocytes % (Auto) 75.7 % (38.0-78.0); Lymphocytes # (Auto) 0.2 K/mcL (1.5-4.8); Lymphocytes % (Auto) 8.5 % (15.5-49.0); Mean Cell Volume 99.9 fL (80.0-100.0); Mean Corpuscular HGB Conc 31.2 g/dL (31.0-36.0); Mean Corpuscular Hemoglobin 31.2 pg (26.0-34.0); Monocytes # (Auto) 0.4 K/mcL (0.1-0.9); Monocytes % (Auto) 15.3 % (1.0-9.0); Platelet Count 115 K/mcL (140-440); RBC 3.53 M/mcL (4.00-5.20)
[2016-05-31] MEDS: cefTRIAXone 1 GM in DEXTROSE 5% IN WATER 50 ML IV SCH (07:45)
[2016-05-31] MEDS: methylPREDNISolone SOD SUCC 125 MG/2 ML VIAL IV SCH ×2 (07:45→21:45)
[2016-05-31] MEDS: POTASSIUM CHLORIDE 10 MEQ TABLET PO SCH (07:45)
[2016-05-31] MEDS: FUROSEMIDE 20 MG TABLET PO SCH (07:45)
[2016-05-31] MEDS: HEPARIN 5,000 UNIT/ML VIAL SQ SCH ×2 (07:45→21:45)
[2016-05-31] MEDS: ALPRAZolam 0.5 MG TABLET PO PRN ×2 (07:45→17:31)
[2016-05-31] MEDS: ASPIRIN 81 MG TAB.CHEW PO SCH (07:45)
[2016-05-31] MEDS: ESCITALOPRAM 20 MG TABLET PO SCH (08:18)
[2016-05-31] MEDS: VITAMIN D3 1,000 UNIT TABLET PO SCH (08:18)
[2016-05-31] MEDS: POTASSIUM CHLORIDE 20 MEQ in 0.45 % SODIUM CHLORIDE 1,000 ML IV SCH ×2 (08:40→12:45)
--- NOTE | 2016-05-31 11:57 | Internal Med Progress Note ---
Medical - PN: Subj Patient information: Note initiated : 05/31/16 at 11:56 am Service Date, if different from initiated Date: [] Patient: Rochelle Olivas 85 y/o F admitted on 05/27/16 for SOB/Cough, Pneumonia. Chief Complaint: [] Interval history: May 27, 2016;History of present illness: Ms. Olivas is a 85 year old female with a long-standing history of COPDand long past history of smoking. She was seen in the emergency room about one week ago with shortness of breath, and was diagnosed with early pneumonia. She was treated with a Z-Ulices. She has she really just has not gotten any better over the last week, and is having persistent cough, which is minimally productive. She continues to feel more short of breath than usual and feels weak. She denies fever or chills, headaches or dizziness, new eye or ear symptoms, sore throat, chest pain or palpitations, abdominal pain nausea or vomiting, diarrhea. She does have occasional constipation. She does admit that she has been steadily losing weight over the last several years, and has lost about 30 pounds. ER evaluation showed bibasilar pneumonia, and reported O2 saturation of 79% on 4 L initially, which eventually ramonita to 90%. Lactic acid is normal, white blood cell count is low, due to myelodysplasia. BUN/creatinine are elevated as is serum CO2. May 28, 2016: The patient is feeling quite a bit better today, although she continues to have a wet and weak cough. She is using a Yankauer suction device to clear her pharynx, and says that is working well. She is a little less short of breath than yesterday, and has less wheezing.. She continues to be quite weak when physical therapy tries to stand her up. She notes that the nebulizers here seemed to work better than her nebulizers at home, and wonders if her machine is too weak. he thinks she might have a little bit of constipation. She otherwise denies fever or chills, chest pain or palpitations, abdominal pain, nausea or vomiting , dysuria. May 29, 2016: This morning, the patient was eating yogurt, and started to cough, and had trouble stopping. She became short of breath during this episode. She believes she is having intermittent postnasal drip, and at this causes coughing spasms. she was having some increased shortness of breath, but that improved after coughing stopped. -she denies fever or chills, chest pain or palpitations, abdominal painor nausea or vomiting or diarrhea, or dysuria. -she was offereda nutritional supplement drink last night, but claims it gave her cramps, so she does not want to do that anymore. May 30, 2016: i was called to see the patient around 5:00 this morning for rapid heart rate and jaw discomfort. her cardiac monitor technician indicatedshe had developed atrial fibrillation. I suspect her jaw painmay have been tachycardia related ischemic pain. She was given IV metoprolol, which did not seem to have much effect. She was then given 0.25 of IV digoxin, and her heart rateslowly came down, and then she converted back to sinus rhythm. Her pain has resolved. I saw her again later this morning, and she no longer has any jaw discomfort. She denies fever or chills,chest pain or palpitations. She continues to have a very wet gurgly cough, and is able to suction some things out with the Yankauer suction. She continues to feel quite weak, and to not have much of an appetite. The fish skinning machine feeder to come up with a supplement that she seems to like, so she agrees to try to get at least 2 of those in a day now. Otherwise she denies abdominal pain, nausea or vomiting, diarrhea or constipation, dysuria. Her son is here today, and has questions about the events of this morning. I reviewed with him my thoughts on this. He says she has been extraordinarily fatigued over the last several months,which they believe is due to her bone marrow disorder and anemia. May 31, 2016: this morning, the patient was quite fatigued, and the nurses thought she seemed a lot more tired than her usual, so they let her sleep a little longer. When I entered the room she was sitting up in her chair, visiting with family. She states she feels quite a bit better today than yesterday, and feels like she actually got a good night's sleep last night. Last evening she did go back into the atrial fibrillation, but this seemed to settle down after she was given a dose of IV Lasix and IV digoxin. I suspect her recurrent A. fib may be due to a bit of volume overload. Otherwise, she continues to cough, but things her cough may be a little less today. She thinks her shortness of breath may be a bit improved. She denies fever or chills, chest pain or palpitations, GI or symptoms. We did place a Platt catheter last night because of the Lasix, but she would just as soon have that out today. She continues to complain of a postnasal drip. - Constitutional Vitals: Vital Signs Temp Pulse Resp BP Pulse Ox 98.9 F 63 16 126/72 95 05/31/16 08:00 05/31/16 08:13 05/31/16 08:13 05/31/16 08:00 05/31/16 08:00 Period Temp Pulse Resp BP Sys/[place] Pulse Ox Last 24 Hr 98.0 F-98.9 F 63-87 16-21 116-156/55-75 93-96 Intake and Output 05/30/16 05/31/16 05/31/16 21:59 05:59 13:59 Intake Total 1400 / 1400 100 / 100 100 / 100 Output Total 620 / 620 1350 / 1350 75 / 75 Balance 780 / 780 -1250 / -1250 25 / 25 Weight 104 lb 8 oz Intake & Output: Intake & Output 05/30/16 05/31/16 05/31/16 21:59 05:59 13:59 Intake Total 1400 / 1400 100 / 100 100 / 100 Output Total 620 / 620 1350 / 1350 75 / 75 Balance 780 / 780 -1250 / -1250 25 / 25 Weight 104 lb 8 oz Intake: IV 1110 / 1110 100 / 100 100 / 100 Potassium Chloride 20 Meq 1010 / 1010 In Sodium Chloride 0.45% 1,000 ml @ 75 mls/hr IV .[id number] [facility] Rx#: [id number] Oral 290 / 290 Output: Urine Catheter Amount 1100 / 1100 75 / 75 Void Amount 620 / 620 250 / 250 Other: Meal Dinner Percent of Meal Consumed 50% Feeding Ability Assist with Tray Set Up # Bowel Movements 1 Exam: on exam, currently the patient is awake and alert, and in no acute distress.she does seem a bit brighter today. .Neck is supple without lymphadenopathy. neck shows no obvious lymphadenopathy or JVD. Cardiac exam shows a rather irregular rhythm with controlled rate. Lungs:Show crackles mainly at the right base, otherwise breath sounds are markedly decreased throughout but without obvious rhonchi or wheezes. Abdomen is soft and nontender. Extremities show 1+ pitting edema just above the ankles and feet. Neurologic exam is grossly nonfocal. Medical - PN: Obj Da - Labs CBC & Chem 7: 05/31/16 03:45 05/31/16 03:45 Labs: Abnormal Lab Results 05/31/16 05/31/16 05/30/16 03:45 03:45 15:30 WBC 2.5 L RBC 3.53 L Hgb 11.0 L Hct 35.3 L MCV RDW 22.0 H Plt Count 115 L MPV 10.9 H Gran % Lymph % (Auto) 8.5 L [place] % (Auto) 15.3 H Lymph # 0.2 L Carbon Dioxide 33 H Anion Gap 6.0 L BUN 37 H Glucose 153 H Phosphorus 2.1 L CK-MB (CK-2) 3.8 H Total Protein 5.1 L Albumin 2.9 L Globulin 05/30/16 05/30/16 05/29/16 03:45 03:45 04:40 WBC 3.4 L 3.4 L RBC 3.37 L 3.29 L Hgb 10.6 L 10.2 L Hct 33.6 L 32.9 L MCV 100.1 H RDW 22.7 H 22.8 H Plt Count 128 L 123 L MPV 11.0 H 11.2 H Gran % 79.2 H 78.7 H Lymph % (Auto) 7.5 L 7.4 L [place] % (Auto) 12.7 H 13.2 H Lymph # 0.3 L 0.2 L Carbon Dioxide 31 H Anion Gap BUN 35 H Glucose 130 H Phosphorus 2.6 L CK-MB (CK-2) Total Protein 5.1 L Albumin 3.0 L Globulin 2.1 L 05/29/16 04:30 WBC RBC Hgb Hct MCV RDW Plt Count MPV Gran % Lymph % (Auto) [place] % (Auto) Lymph # Carbon Dioxide 31 H Anion Gap BUN 35 H Glucose 148 H Phosphorus CK-MB (CK-2) Total Protein 5.2 L Albumin 2.8 L Globulin echocardiogram from today is still pending. chest x-ray, May 30: There is moderate heart enlargement, which is unchanged. Interstitial edema has improved. COPD changes are stable. Lactic acid is normal at 0.9, follow-up lactic acid was 1.2 urinalysis is within normal limits. EKG shows sinus arrhythmia with a variable rate ranging from about 92 120, with some mild ST sagging noted increased to 3 and F, and V3 for through V6 chest x-ray from May 27, 2016 shows small bibasilar infiltrates and effusions. There is borderline cardiomegaly and COPD changes are noted. There are small bilateral pleural effusions. troponin is less than 0.01 BNP is elevated at 3806 -dimer is 1.26. sputum Gram stain shows moderate white blood cells many gram-negative bacilli, and few to moderate gram positive cocci and gram-positive bacilli. sputum culture is growing Haemophilus influenza , which should be sensitive to ampicillin blood cultures are negative so far. Meds: Medications Acetaminophen (Tylenol) 650 mg PO Q6HP PRN PRN Reason: PAIN/FEVER > 101 Albuterol Sulfate (Ventolin) 2.5 mg NEB Q4HRT PRN PRN Reason: Shortness Of Breath Or Wheezing Last Admin: 05/29/16 07:31 Dose: 2.5 mg Albuterol/Ipratropium (Duoneb) 3 ml NEB Q6HRT [facility] Last Admin: 05/31/16 08:12 Dose: 3 ml Alprazolam (Xanax) 0.5 mg PO TIDP PRN PRN Reason: Anxiety Last Admin: 05/31/16 07:45 Dose: 0.5 mg Aspirin (Aspirin) 81 mg PO DAILY [facility] Last Admin: 05/31/16 07:45 Dose: 81 mg Docusate Sodium (Colace) 100 mg PO BID PRN PRN Reason: Constipation Escitalopram Oxalate (Lexapro) 40 mg PO QDAY [facility] Last Admin: 05/31/16 08:18 Dose: 40 mg Furosemide (Lasix) 20 mg PO DAILY [facility] Last Admin: 05/31/16 07:45 Dose: 20 mg Heparin Sodium (Porcine) (Heparin) 5,000 unit SQ Q12 [facility] Last Admin: 05/31/16 07:45 Dose: 5,000 unit Potassium Chloride 20 meq/ (Sodium Chloride) 1,010 mls @ 75 mls/hr IV .[id number] [facility] Last Admin: 05/31/16 08:40 Dose: Not Given Ceftriaxone Sodium 1 gm/ (Dextrose) 50 mls @ 100 mls/hr IV DAILY [facility] Last Admin: 05/31/16 07:45 Dose: 100 mls/hr Metronidazole (Flagyl) 500 mg in 100 mls @ 100 mls/hr IV Q8 [facility] Last Infusion: 05/31/16 06:42 Dose: Infused Magnesium Hydroxide (Milk Of Magnesia) 30 ml PO DAILYP PRN PRN Reason: Constipation Methylprednisolone Sodium Succinate (Solu-Medrol) 80 mg IV Q12 [facility] Last Admin: 05/31/16 07:45 Dose: 80 mg Ondansetron HCl (Zofran) 4 mg IV Q4HP PRN PRN Reason: Nausea And Vomiting Potassium Chloride (Kdur) 10 meq PO QAC [facility] Last Admin: 05/31/16 07:45 Dose: 10 meq Vitamin D (Vitamin D3) 2,000 unit PO DAILY [facility] Last Admin: 05/31/16 08:18 Dose: 2,000 unit Medical - PN: A/P - Time Spent With Patient Total time spent is greater than 50% in coordination of care (as documented) at patient's floor/unit and/or counseling patient: 25 - 35 minutes (1) Bilateral pneumonia Status: Acute Current Visit: Yes (2) ARF (acute renal failure) Status: Acute Current Visit: Yes (3) Myelodysplasia (myelodysplastic syndrome) Status: Chronic Current Visit: No - Narrative A/P Narrative: #1. Pulmonary. This patient presents with probable bilateral lower lobe pneumonia, which is not responding adequately to outpatient treatment. She presented with moderate hypoxia and dehydration. She has been admitted for more aggressive care. cultures suggest Haemophilus influenza pneumonia - -he has made slow progress, but I do think she looks better today, so I think we are moving forward. --covered with IV Rocephin. She is status post complete course of Zithromax.-- -Bronchodilators, oxygen, pulmonary toilet.- -IV steroids. -continue suction with hand-held Yankauer. -sputum culture suggest Haemophilus influenza A which should be susceptible to Rocephin. -d-dimer is mildly positive, so she does not improve quickly, we may check a CT angiogram. -plan of treatment was reviewed with the patient and with her son. She is taking a while to rebound, which is not unexpected given her extraordinarily frail baseline state. I spoke with respiratory therapy about possible chest physiotherapy versus a cappella device, to help mobilize secretions. Otherwise we will continue with current plan. I did discuss with her son that her long- term prognosis is quite poor, given her severe COPD, her malnourished state, and her myelodysplastic syndrome. #2. Acute renal failure. -BUN/creatinine are improving with iV fluid hydration. unfortunately, it appears she is now that volume overloaded, so Lasix has been started. #3. CODE STATUS:The patient and her son agreed to a DNR CODE STATUS. #4. DVT prophylaxis: Subcutaneous heparin. #5. Neutropenia, in the setting of myelodysplasia. Continue to follow. #6. GI. Add Colace for concerns about constipation. #7. Nutrition. I reviewed again today with the patient that we ideally need to get more calories and to her. -fish skinning machine feeder did find a supplement that the patient likes, and has now agreed to take that at least twice a day, to improve calorie intake We can discussed that it's important to get protein to help heal and build muscle mass. #8. cardiac. -The patient developed atrial fib with some jaw discomfort early yesterday morning. This resolved after IV doses of metoprolol and digoxin.- -he did have a recurrent episodelast night, and I think maybe her heart is irritable because of volume overload. I do give her IV Lasixand another dose of IV digoxin, and she seems to have settled down again this morning. We may need to try harder to diurese her a bit more, now that her by mouth intake is improving. So far today, approximately 35 minutes has been spent interviewing and examining the patient, reviewing plan of care with nursing staff, as well as with the patient and her family,giving urgent orders for her atrial fibrillation. Medical - PN: Qual - Stroke Symptom Onset Unknown: No - VTE Deep Vein Thrombosis/Pulmonary Embolism Present on Admission: No
[2016-05-31] MEDS: ACETAMINOPHEN 325 MG TABLET PO PRN (13:20)
--- NOTE | 2016-05-31 15:54 | Echocardiogram Report ---
ECHOCARDIOGRAM: 2-D and M-mode echocardiography with cardiac Doppler and color flow imaging were performed with a [employer] Aplio MX. Indication is new onset atrial fibrillation and jaw pain. Both atria appeared enlarged, the RA mildly so, the LA moderately so. RV and LV cavity size appeared normal. LV wall thickness appeared mildly increased. Systolic performance appeared vigorous. Estimated ejection fraction is 70%. Aortic root diameter appeared high normal. The root appeared sclerotic. The aortic valve appeared kbzcehqulp-zo-btiaefc calcified. Valve opening appeared adequate. Maximal instantaneous aortic outflow systolic velocity was borderline elevated at 2.0 msec, probably high flow related. No more than very trivial aortic regurgitation was noted. The mitral and tricuspid valves appeared unremarkable. Heavy mitral anular calcification was present. Mitral regurgitation, probably pqeg-uc-mhrutbwz (1-2+), was noted. Color flow imaging disclosed the regurgitant jet to be directed centrally. Doppler interrogation of LV inflow disclosed mildly prolonged early diastolic deceleration time and mild ''A'' wave dominance indicating delayed LV relaxation. Pulmonary venous interrogation disclosed normal ''S'' wave dominance. The pulmonic valve showed ''a'' wave diminution. Pulmonary artery acceleration time appeared shortened. There was no evidence for pulmonic stenosis. Pulmonic regurgitation, probably trivial and tricuspid regurgitation, probably moderate (2+), were noted. No intracardiac shunting was appreciated. There was no evidence for pericardial effusion. The IVC was dilated and did not vary with the respiratory cycle indicating raised CVP. Calculated estimate of PA systolic pressure is cnadjgjisg-ul-nunbueac elevated at 60-65 mmHg. Sinus rhythm, rate 60, was present. CONCLUSION: Aortic root sclerosis. Avqrvtvm-dy-mxzrc aortic leaflet calcification with adequate valve opening. Mild concentric LVH with vigorous systolic performance. Heavy mitral anular calcification with mitral regurgitation, probably vlif-qm-qrxobkmn (1-2+) and moderate LA enlargement. Gnhhsqaa-cr-ihjqbo pulmonary hypertension with mild RA enlargement and raised CVP. Since previous study 11/28/13 there are probably no major changes. (See accompanying M-mode and Doppler reports for quantitation.) ECHOCARDIOGRAPHY M-MODE CALCULATIONS: HT: 70'' WT: 103 BSA: 1.57 m2 NORMALS AORTA: AORTIC ROOT 3.7 2.0-3.7 cm LEFT ATRIUM 4.7 1.9-4.0 cm MITRAL VALVE: EXCURSION 1.7 1.9-2.7 cm EPSS 0.4 <0.5 cm LT VENTRICLE: LVID (ED) 4.2 3.5-5.7 cm LVID (ES) 2.8 SEPTAL THICKNESS 1.2 0.6-1.1 cm SEPTAL EXCURSION 0.5 0.3-0.8 cm LVPW THICKNESS 1.2 0.6-1.1 cm LVPW EXCURSION 1.1 0.9-1.4 cm MINOR AXIS FS 33 25%-40% RT VENTRICLE: RVID (ED) -- 0.9-2.6 cm(up to 3cm if LLD) QUALITATIVE DOPPLER FLOW STUDIES MITRAL VALVE MR, probably jlrt-fh-kmnfnrhu (1-2+). AORTIC VALVE -- TRICUSPID VALVE TR, probably moderate (2+). PULMONIC VALVE CT, probably trivial. QUANTITATIVE DOPPLER FLOW STUDIES SAMPLE SITES VELOCITIES PEAK PRESSURE VALVE AREA and/or VALVE WINDOW (PEAK,M/SEC) DROP (GRADIENT) PRESSURE HALF-TIME MV (Diastole) 1.0 (E) 1-05 (A) MV (Systole) 5.0 AO (Diastole) 1.2 AO (Systole) 2.0 (LVOT 2.0) TV (Systole) 3.3 PV (Systole) 1.2 PV (Diastole) 0.85 LWG:barbara Job ID: [id number] Doc ID: [id number] Michael Britt MD
[2016-05-31] MEDS: FLUTICASONE PROPIONATE SPRAY.NAS NS SCH (21:44)
[2016-06-01] MEDS: IPRATROPIUM/ALBUTEROL 3 ML AMPUL.NEB NEB SCH ×4 (01:23→19:25)
[2016-06-01] MEDS: POTASSIUM CHLORIDE 20 MEQ in 0.45 % SODIUM CHLORIDE 1,000 ML IV SCH (04:00)
[2016-06-01] MEDS: metroNIDAZOLE 500 MG/100 ML BAG IV SCH (05:03)
[2016-06-01 06:29] LABS: Basophils # (Auto) 0 K/mcL (0.0-0.3); Basophils % (Auto) 0.3 % (0.0-2.0); Eosinophils # (Auto) 0 K/mcL (0.0-0.7); Eosinophils % (Auto) 0.1 % (0.0-7.0); Granulocytes % (Auto) 76.6 % (38.0-78.0); Lymphocytes # (Auto) 0.2 K/mcL (1.5-4.8); Lymphocytes % (Auto) 8.5 % (15.5-49.0); Mean Cell Volume 100.1 fL (80.0-100.0); Mean Corpuscular HGB Conc 31.6 g/dL (31.0-36.0); Mean Corpuscular Hemoglobin 31.7 pg (26.0-34.0); Monocytes # (Auto) 0.4 K/mcL (0.1-0.9); Monocytes % (Auto) 14.5 % (1.0-9.0); Platelet Count 98 K/mcL (140-440); RBC 3.48 M/mcL (4.00-5.20); Red Cell Distribution Width 22.5 % (11.5-14.5)
[2016-06-01 06:56] LABS: Blood Urea Nitrogen 37 mg/dl (8-23)
[2016-06-01] MEDS: POTASSIUM CHLORIDE 10 MEQ TABLET PO SCH (08:31)
[2016-06-01] MEDS: ASPIRIN 81 MG TAB.CHEW PO SCH (09:34)
[2016-06-01] MEDS: HEPARIN 5,000 UNIT/ML VIAL SQ SCH ×2 (09:35→21:38)
[2016-06-01] MEDS: FUROSEMIDE 20 MG TABLET PO SCH (09:35)
[2016-06-01] MEDS: cefTRIAXone 1 GM in DEXTROSE 5% IN WATER 50 ML IV SCH (09:35)
[2016-06-01] MEDS: FLUTICASONE PROPIONATE SPRAY.NAS NS SCH ×2 (09:35→21:38)
[2016-06-01] MEDS: methylPREDNISolone SOD SUCC 125 MG/2 ML VIAL IV SCH (09:36)
[2016-06-01] MEDS: ESCITALOPRAM 20 MG TABLET PO SCH (09:42)
[2016-06-01] MEDS: VITAMIN D3 1,000 UNIT TABLET PO SCH (09:42)
[2016-06-01] MEDS ORDERED: FUROSEMIDE 20 MG/2 ML VIAL IV ONE ×2 (10:47→16:11)
[2016-06-01] MEDS: methylPREDNISolone SOD SUCC 40 MG/ML VIAL IV SCH ×2 (10:57→21:38)
--- NOTE | 2016-06-01 10:57 | Internal Med Progress Note ---
Medical - PN: Subj Patient information: Note initiated : 06/01/16 at 10:55 am Service Date, if different from initiated Date: [] Patient: Rochelle Olivas 85 y/o F admitted on 05/27/16 for SOB/Cough, Pneumonia. Chief Complaint: [] Interval history: The patient is seen examined, no acute overnight events, patient is still tired and fatigued, even minimal activities will cause desaturations on the pulse oximetery, Otherwise she does not report any new concerns. Lying comfortably in bed. Patients overnight notes reviewed. Pertinent ROS: fatigue present no chest pains or palpitations no dizziness or headache cough with expectoration present. no worsening shortness of breath. no abdominal pain, nausea or vomiting. - Constitutional Vitals: Vital Signs Temp Pulse Resp BP Pulse Ox 97.3 F L 65 24 153/80 92 06/01/16 08:00 06/01/16 07:33 06/01/16 08:00 06/01/16 08:00 06/01/16 08:00 Period Temp Pulse Resp BP Sys/[place] Pulse Ox Last 24 Hr 97.3 F-99.1 F 65-89 18-24 121-153/56-81 90-100 Intake and Output 05/31/16 06/01/16 06/01/16 21:59 05:59 13:59 Intake Total 460 / 460 1110 / 1110 770 / 770 Output Total 525 / 525 Balance -65 / -65 1110 / 1110 770 / 770 Weight 109 lb Intake & Output: Intake & Output 05/31/16 06/01/16 06/01/16 21:59 05:59 13:59 Intake Total 460 / 460 1110 / 1110 770 / 770 Output Total 525 / 525 Balance -65 / -65 1110 / 1110 770 / 770 Weight 109 lb Intake: IV 100 / 100 1110 / 1110 530 / 530 Potassium Chloride 20 Meq 1010 / 1010 430 / 430 In Sodium Chloride 0.45% 1,000 ml @ 75 mls/hr IV .[id number] [facility] Rx#: [id number] Oral 360 / 360 240 / 240 Output: Void Amount 525 / 525 Other: Meal snack Breakfast Percent of Meal Consumed 50% 100% Feeding Ability Assist with Tray Set Up Independent # Bowel Movements 1 General appearance: cooperative, no acute distress - Head Head exam: Present: atraumatic, normal inspection, normocephalic - Neck Neck exam: Present: normal inspection - Respiratory Respiratory exam: Present: normal respiratory exam. Absent: accessory muscle use, wheezes - Cardiovascular Cardiovascular exam: Present: normal rate and rhythm, +S1, +S2 - GI/Abdominal GI/Abdominal exam: Present: normal bowel sounds, soft. Absent: tenderness - Neurological Exam Neurological exam: Present: alert. Absent: motor sensory deficit Medical - PN: Obj Da - Labs CBC & Chem 7: 06/01/16 03:38 06/01/16 03:38 Labs: Abnormal Lab Results 06/01/16 06/01/16 05/31/16 03:38 03:38 03:45 WBC 2.8 L RBC 3.48 L Hgb 11.0 L Hct 34.9 L MCV 100.1 H RDW 22.5 H Plt Count 98 L MPV 11.4 H Gran % Lymph % (Auto) 8.5 L [place] % (Auto) 14.5 H Lymph # 0.2 L Potassium 5.2 H Carbon Dioxide 31 H 33 H Anion Gap 7.0 L 6.0 L BUN 37 H 37 H Glucose 132 H 153 H Phosphorus 2.1 L CK-MB (CK-2) Total Protein 5.1 L Albumin 2.9 L Globulin 05/31/16 05/30/16 05/30/16 03:45 15:30 03:45 WBC 2.5 L RBC 3.53 L Hgb 11.0 L Hct 35.3 L MCV RDW 22.0 H Plt Count 115 L MPV 10.9 H Gran % Lymph % (Auto) 8.5 L [place] % (Auto) 15.3 H Lymph # 0.2 L Potassium Carbon Dioxide 31 H Anion Gap BUN 35 H Glucose 130 H Phosphorus 2.6 L CK-MB (CK-2) 3.8 H Total Protein 5.1 L Albumin 3.0 L Globulin 2.1 L 05/30/16 03:45 WBC 3.4 L RBC 3.37 L Hgb 10.6 L Hct 33.6 L MCV RDW 22.7 H Plt Count 128 L MPV 11.0 H Gran % 79.2 H Lymph % (Auto) 7.5 L [place] % (Auto) 12.7 H Lymph # 0.3 L Potassium Carbon Dioxide Anion Gap BUN Glucose Phosphorus CK-MB (CK-2) Total Protein Albumin Globulin Meds: Medications Acetaminophen (Tylenol) 650 mg PO Q6HP PRN PRN Reason: PAIN/FEVER > 101 Last Admin: 05/31/16 13:20 Dose: 650 mg Albuterol Sulfate (Ventolin) 2.5 mg NEB Q4HRT PRN PRN Reason: Shortness Of Breath Or Wheezing Last Admin: 05/29/16 07:31 Dose: 2.5 mg Albuterol/Ipratropium (Duoneb) 3 ml NEB Q6HRT [facility] Last Admin: 06/01/16 01:23 Dose: 3 ml Alprazolam (Xanax) 0.5 mg PO TIDP PRN PRN Reason: Anxiety Last Admin: 05/31/16 17:31 Dose: 0.5 mg Aspirin (Aspirin) 81 mg PO DAILY [facility] Last Admin: 06/01/16 09:34 Dose: 81 mg Docusate Sodium (Colace) 100 mg PO BID PRN PRN Reason: Constipation Escitalopram Oxalate (Lexapro) 40 mg PO QDAY [facility] Last Admin: 06/01/16 09:42 Dose: 40 mg Fluticasone Propionate (Flonase) 1 spray NS BID [facility] Last Admin: 06/01/16 09:35 Dose: 1 spray Furosemide (Lasix) 20 mg PO DAILY [facility] Last Admin: 06/01/16 09:35 Dose: 20 mg Heparin Sodium (Porcine) (Heparin) 5,000 unit SQ Q12 [facility] Last Admin: 06/01/16 09:35 Dose: 5,000 unit Ceftriaxone Sodium 1 gm/ (Dextrose) 50 mls @ 100 mls/hr IV DAILY [facility] Last Admin: 06/01/16 09:35 Dose: 100 mls/hr Magnesium Hydroxide (Milk Of Magnesia) 30 ml PO DAILYP PRN PRN Reason: Constipation Methylprednisolone Sodium Succinate (Solu-Medrol) 40 mg IV Q12 [facility] Ondansetron HCl (Zofran) 4 mg IV Q4HP PRN PRN Reason: Nausea And Vomiting Potassium Chloride (Kdur) [facility] Last Admin: 06/01/16 08:31 Dose: Not Given Vitamin D (Vitamin D3) 2,000 unit PO DAILY [facility] Last Admin: 06/01/16 09:42 Dose: 2,000 unit Medical - PN: A/P - Time Spent With Patient Total time spent is greater than 50% in coordination of care (as documented) at patient's floor/unit and/or counseling patient: (1) Fluid overload Status: Acute Assessment and plan: The patient Echo reviwed LVEF normal at 70.hyperdynamic, elevated CVP. On po lasix, which is resumed, the pateint will get another dose of IV lasix today. the patient still desturates with minimal activity d/c IV fluids Current Visit: Yes (2) Paroxysmal atrial fibrillation with RVR Status: Acute Assessment and plan: Intermittent elevated HR, due to fluid overload status, vs sepsis on IVABX for now. HR stable in sinus rhythm Has responded to digoxin prn, while inpatient. on ASA for now. If afib persists as outpatient, she may benefit from anticoagulation, her CHADSvasc score is 4, I have not started her on anticoagulation as presently her afib could be sepsis related in which scenario I am not sure if anticogulation and adjunct faculty for medical terminology medications are indicated. This can be discussed with the patients PCP as outpatient. Current Visit: Yes (3) Bilateral pneumonia Status: Acute Assessment and plan: Sputum cx positive for H influenzae covered by rocephin, continue same for now ACAPELLA improving oxygenation. Current Visit: Yes (4) Acute exacerbation of chronic obstructive airways disease Status: Acute Assessment and plan: DUONEBS , antibiotics no wheezing on exam on solumedrol 80 bid, dose cut down to 40 BID, will rapidly desacalate therapy. Switch to oral tomorrow. Current Visit: No Medical - PN: Qual - Stroke Symptom Onset Unknown: No - VTE Deep Vein Thrombosis/Pulmonary Embolism Present on Admission: No
[2016-06-02] MEDS ORDERED: DIGOXIN 500 MCG/2 ML AMPUL IV ONE ×2 (01:41→01:54)
[2016-06-02] MEDS: IPRATROPIUM/ALBUTEROL 3 ML AMPUL.NEB NEB SCH ×4 (01:48→19:43)
[2016-06-02 06:30] LABS: Basophils # (Auto) 0 K/mcL (0.0-0.3); Basophils % (Auto) 0.1 % (0.0-2.0); Eosinophils # (Auto) 0 K/mcL (0.0-0.7); Eosinophils % (Auto) 0 % (0.0-7.0); Granulocytes % (Auto) 77.8 % (38.0-78.0); Lymphocytes # (Auto) 0.3 K/mcL (1.5-4.8); Lymphocytes % (Auto) 8.3 % (15.5-49.0); Mean Cell Volume 99.5 fL (80.0-100.0); Mean Corpuscular HGB Conc 31.5 g/dL (31.0-36.0); Mean Corpuscular Hemoglobin 31.3 pg (26.0-34.0); Monocytes # (Auto) 0.5 K/mcL (0.1-0.9); Monocytes % (Auto) 13.8 % (1.0-9.0); Platelet Count 100 K/mcL (140-440); RBC 3.65 M/mcL (4.00-5.20); Red Cell Distribution Width 22.2 % (11.5-14.5)
[2016-06-02 07:26] LABS: ALT/SGPT 13 U/l (0-40); Albumin 3.1 gm/dL (3.2-5.2); Albumin/Globulin Ratio 1.9 (1.0-2.3); Alkaline Phosphatase 46 U/L (39-117); Bilirubin,Direct < 0.2 mg/dL (0.0-0.3); Blood Urea Nitrogen 41 mg/dl (8-23); Gamma Glutamyl Transpeptidase 8 U/L (5-36); Magnesium 2.2 mg/dL (1.6-2.5); Uric Acid 5.1 mg/dL (2.5-8.0)
--- NOTE | 2016-06-02 08:48 | Internal Med Progress Note ---
Medical - PN: Subj Patient information: Note initiated : 06/02/16 at 8:44 am Service Date, if different from initiated Date: [] Patient: Rochelle Olivas 85 y/o F admitted on 05/27/16 for SOB/Cough, Pneumonia. Chief Complaint: [] Interval history: The patient seen examined this AM, Overnight events noted The patient had another round of afib with RVR overnight, when she tried to ambulate, the patient did not report any chest pain, palpitations or dizziness. She was eating breakfast sitting in her chair. The patient has afib now, and has the risk factors for Afib, given her age, HTN , she is at risk for stroke. I discussed her high risk for STroke with her, her chadvasc score is atleast 3.5, indicating need for anticoagulation therapy. For her Afib we also discussed rate control medications. I reviwed the plan of starting oral anti coagulation medications and rate control med (cardizem) with the patients primary provider Dr Meek, who is also in agreement with the plan She will need to be monitored for another 24 hrs given her tenous blood pressure , after initiation of cardizem. (metoprolol not used given her copd. and digoxin is not a good medication for her given her AFib with rvr is related usually to activity) If Diltazem causes hypotenstion at low dose, then will consider use of amiodarone. Pertinent ROS: no chest pain or palpitations no abdominal pain, nausea or vomiting, no headache or dizziness no diarrhea or constipation still has cough, using ezpap. - Constitutional Vitals: Vital Signs Temp Pulse Resp BP Pulse Ox 97.8 F 68 18 105/59 95 06/02/16 03:55 06/02/16 07:59 06/02/16 07:59 06/02/16 03:55 06/02/16 07:59 Period Temp Pulse Resp BP Sys/[place] Pulse Ox Last 24 Hr 97.8 F-98.8 F 68-110 16-24 97-133/56-76 92-95 Intake and Output 06/01/16 06/02/16 06/02/16 21:59 05:59 13:59 Intake Total 480 / 480 Output Total 600 / 600 100 / 100 Balance -120 / -120 -100 / -100 Weight 109 lb Intake & Output: Intake & Output 06/01/16 06/02/16 06/02/16 21:59 05:59 13:59 Intake Total 480 / 480 Output Total 600 / 600 100 / 100 Balance -120 / -120 -100 / -100 Weight 109 lb Intake: Oral 480 / 480 Output: Void Amount 600 / 600 100 / 100 Other: Meal Dinner Percent of Meal Consumed 75% Feeding Ability Assist with Tray Set Up # Voids 1 # Bowel Movements 0 General appearance: cooperative, no acute distress - Head Head exam: Present: atraumatic, normal inspection - Respiratory Respiratory exam: Present: normal respiratory exam. Absent: accessory muscle use, wheezes - Cardiovascular Cardiovascular exam: Present: irregular rhythm, +S1, +S2 - GI/Abdominal GI/Abdominal exam: Present: normal bowel sounds, soft. Absent: rigid, tenderness - Neurological Exam Neurological exam: Present: alert, motor sensory deficit, oriented X3 Medical - PN: Obj Da - Labs CBC & Chem 7: 06/02/16 04:03 06/02/16 04:03 Labs: Abnormal Lab Results 06/02/16 06/02/16 06/01/16 04:03 04:03 03:38 WBC 3.5 L RBC 3.65 L Hgb 11.4 L Hct MCV RDW 22.2 H Plt Count 100 L MPV 11.0 H Lymph % (Auto) 8.3 L [place] % (Auto) 13.8 H Lymph # 0.3 L Potassium 5.2 H Carbon Dioxide 35 H 31 H Anion Gap 7.0 L BUN 41 H 37 H Glucose 140 H 132 H Phosphorus 2.0 L CK-MB (CK-2) Total Protein 4.7 L Albumin 3.1 L Globulin 1.6 L 06/01/16 05/31/16 05/31/16 03:38 03:45 03:45 WBC 2.8 L 2.5 L RBC 3.48 L 3.53 L Hgb 11.0 L 11.0 L Hct 34.9 L 35.3 L MCV 100.1 H RDW 22.5 H 22.0 H Plt Count 98 L 115 L MPV 11.4 H 10.9 H Lymph % (Auto) 8.5 L 8.5 L [place] % (Auto) 14.5 H 15.3 H Lymph # 0.2 L 0.2 L Potassium Carbon Dioxide 33 H Anion Gap 6.0 L BUN 37 H Glucose 153 H Phosphorus 2.1 L CK-MB (CK-2) Total Protein 5.1 L Albumin 2.9 L Globulin 05/30/16 15:30 WBC RBC Hgb Hct MCV RDW Plt Count MPV Lymph % (Auto) [place] % (Auto) Lymph # Potassium Carbon Dioxide Anion Gap BUN Glucose Phosphorus CK-MB (CK-2) 3.8 H Total Protein Albumin Globulin Meds: Medications Acetaminophen (Tylenol) 650 mg PO Q6HP PRN PRN Reason: PAIN/FEVER > 101 Last Admin: 05/31/16 13:20 Dose: 650 mg Albuterol Sulfate (Ventolin) 2.5 mg NEB Q4HRT PRN PRN Reason: Shortness Of Breath Or Wheezing Last Admin: 05/29/16 07:31 Dose: 2.5 mg Albuterol/Ipratropium (Duoneb) 3 ml NEB Q6HRT [facility] Last Admin: 06/02/16 07:53 Dose: 3 ml Alprazolam (Xanax) 0.5 mg PO TIDP PRN PRN Reason: Anxiety Last Admin: 05/31/16 17:31 Dose: 0.5 mg Aspirin (Aspirin) 81 mg PO DAILY [facility] Last Admin: 06/01/16 09:34 Dose: 81 mg Diltiazem HCl (Cardizem) 30 mg PO Q12 [facility] Docusate Sodium (Colace) 100 mg PO BID PRN PRN Reason: Constipation Escitalopram Oxalate (Lexapro) 40 mg PO QDAY [facility] Last Admin: 06/01/16 09:42 Dose: 40 mg Fluticasone Propionate (Flonase) 1 spray NS BID [facility] Last Admin: 06/01/16 21:38 Dose: 1 spray Furosemide (Lasix) 20 mg PO DAILY [facility] Last Admin: 06/01/16 09:35 Dose: 20 mg Ceftriaxone Sodium 1 gm/ (Dextrose) 50 mls @ 100 mls/hr IV DAILY [facility] Last Infusion: 06/01/16 10:10 Dose: Infused Magnesium Hydroxide (Milk Of Magnesia) 30 ml PO DAILYP PRN PRN Reason: Constipation Methylprednisolone Sodium Succinate (Solu-Medrol) 40 mg IV DAILY [facility] Apixaban 2.5 Mg (Tablet) 1 dose PO BID [facility] Ondansetron HCl (Zofran) 4 mg IV Q4HP PRN PRN Reason: Nausea And Vomiting Potassium Chloride (Kdur) 10 meq PO QAC [facility] Last Admin: 06/01/16 08:31 Dose: Not Given Potassium/Phosphorus/Sodium (Neutra Phos) 1 packet PO BID [facility] Vitamin D (Vitamin D3) 2,000 unit PO DAILY [facility] Last Admin: 06/01/16 09:42 Dose: 2,000 unit Medical - PN: A/P - Time Spent With Patient Total time spent is greater than 50% in coordination of care (as documented) at patient's floor/unit and/or counseling patient: 15 - 24 minutes (1) Fluid overload Status: Acute Assessment and plan: The patient Echo reviewed IVF d/c, did lasix yesterday. plan to just monitor now she is on po lasix. Current Visit: Yes (2) Paroxysmal atrial fibrillation with RVR Status: Acute Assessment and plan: Intermittent elevated HR, start on eliquis 2.5mg bid start on cardizem 30mg bid and monitor response consider amiodarone if the patient becomes hypotensive on cardizem. Major risks benefits discussed with the patient, all questions answered, plan of care also reviewed with the pcp. d/c heparin for DVT prophylaxis. Current Visit: Yes (3) Bilateral pneumonia Status: Acute Assessment and plan: Sputum cx positive for H influenzae covered by rocephin, on ezpap today is day 7 of antibiotic. clinically much improved. Current Visit: Yes (4) Acute exacerbation of chronic obstructive airways disease Status: Acute Assessment and plan: stacy EDUARDO, on iv solumedrol, dose cut to 40mg, switch to PO prednisone. Wean off over 1 week Current Visit: No - Narrative A/P Narrative: DVT prophylaxis- eliquis Disposition- SNF if remains stable for another 24 hrs. Medical - PN: Qual - Stroke Symptom Onset Unknown: No - VTE Deep Vein Thrombosis/Pulmonary Embolism Present on Admission: No
[2016-06-02] MEDS ORDERED: APIXABAN 5 MG TABLET PO SCH (09:00)
[2016-06-02] MEDS ORDERED: DILTIAZEM 120 MG CAP.XL.24H PO SCH (09:00)
[2016-06-02] MEDS ORDERED: predniSONE 20 MG TABLET PO SCH (09:00)
[2016-06-02] MEDS ORDERED: DILTIAZEM 30 MG TABLET PO SCH (09:00)
[2016-06-02] MEDS ORDERED: methylPREDNISolone SOD SUCC 40 MG/ML VIAL IV SCH (09:00)
[2016-06-02] MEDS: FLUTICASONE PROPIONATE SPRAY.NAS NS SCH ×2 (09:13→20:28)
[2016-06-02] MEDS: ESCITALOPRAM 20 MG TABLET PO SCH (09:13)
[2016-06-02] MEDS: VITAMIN D3 1,000 UNIT TABLET PO SCH (09:13)
[2016-06-02] MEDS: cefTRIAXone 1 GM in DEXTROSE 5% IN WATER 50 ML IV SCH (09:14)
[2016-06-02] MEDS: APIXABAN 2.5 MG TABLET PO SCH ×2 (09:14→20:27)
[2016-06-02] MEDS: NEUTRA PHOS 1 PACKET PO SCH ×2 (09:14→20:27)
[2016-06-02] MEDS: ALPRAZolam 0.5 MG TABLET PO PRN (09:15)
[2016-06-02] MEDS: FUROSEMIDE 20 MG TABLET PO SCH (09:15)
[2016-06-02] MEDS: ACETAMINOPHEN 325 MG TABLET PO PRN (09:15)
[2016-06-02] MEDS: ASPIRIN 81 MG TAB.CHEW PO SCH (09:15)
[2016-06-02] MEDS: POTASSIUM CHLORIDE 10 MEQ TABLET PO SCH (09:15)
--- NOTE | 2016-06-02 14:26 | Event Note ---
The patient had a drop in BP after using diltiazem 30mg once. I do not feel she will be able to tolerate this medication. STart her on amiodarone 400mg once daily x 2 weeks, then 100mg once daily (low maintanence dose given advanced age)
[2016-06-02] MEDS: AMIODARONE HCL 200 MG TABLET PO SCH (15:42)
[2016-06-03] MEDS: IPRATROPIUM/ALBUTEROL 3 ML AMPUL.NEB NEB SCH ×3 (02:26→13:00)
[2016-06-03 06:52] LABS: ALT/SGPT 13 U/l (0-40); Albumin 2.9 gm/dL (3.2-5.2); Albumin/Globulin Ratio 1.8 (1.0-2.3); Alkaline Phosphatase 41 U/L (39-117); Bilirubin,Direct < 0.2 mg/dL (0.0-0.3); Blood Urea Nitrogen 42 mg/dl (8-23); Gamma Glutamyl Transpeptidase 7 U/L (5-36); Magnesium 2.3 mg/dL (1.6-2.5); Phosphorous 2.7 mg/dL (2.7-4.5); Uric Acid 4.8 mg/dL (2.5-8.0)
[2016-06-03] MEDS: POTASSIUM CHLORIDE 10 MEQ TABLET PO SCH (06:57)
[2016-06-03] MEDS ORDERED: predniSONE 20 MG TABLET PO SCH (08:00)
[2016-06-03 08:06] LABS: Basophils # (Auto) 0 K/mcL (0.0-0.3); Basophils % (Auto) 0 % (0.0-2.0); Eosinophils # (Auto) 0 K/mcL (0.0-0.7); Eosinophils % (Auto) 0.2 % (0.0-7.0); Granulocytes % (Auto) 58.9 % (38.0-78.0); Lymphocytes # (Auto) 0.6 K/mcL (1.5-4.8); Lymphocytes % (Auto) 15.4 % (15.5-49.0); Mean Cell Volume 96.9 fL (80.0-100.0); Mean Corpuscular HGB Conc 32.2 g/dL (31.0-36.0); Mean Corpuscular Hemoglobin 31.2 pg (26.0-34.0); Monocytes # (Auto) 0.9 K/mcL (0.1-0.9); Monocytes % (Auto) 25.5 % (1.0-9.0); Platelet Count 97 K/mcL (140-440); Red Cell Distribution Width 22.6 % (11.5-14.5)
[2016-06-03] MEDS: FLUTICASONE PROPIONATE SPRAY.NAS NS SCH (08:22)
[2016-06-03] MEDS: VITAMIN D3 1,000 UNIT TABLET PO SCH (08:22)
[2016-06-03] MEDS: FUROSEMIDE 20 MG TABLET PO SCH (08:22)
[2016-06-03] MEDS: ASPIRIN 81 MG TAB.CHEW PO SCH (08:23)
[2016-06-03] MEDS: ALPRAZolam 0.5 MG TABLET PO PRN (08:23)
[2016-06-03] MEDS: ACETAMINOPHEN 325 MG TABLET PO PRN (08:23)
[2016-06-03] MEDS: AMIODARONE HCL 200 MG TABLET PO SCH (08:23)
[2016-06-03] MEDS: APIXABAN 2.5 MG TABLET PO SCH (08:23)
[2016-06-03] MEDS ORDERED: DULoxetine 30 MG CAPSULE PO SCH (09:00)
--- NOTE | 2016-06-03 12:44 | Discharge Summary ---
Medical - DS: Prov Patient information: Note initiated : 06/03/16 at 12:31 pm Service Date, if different from initiated Date: [] Patient: Rochelle Olivas 85 y/o F admitted on 05/27/16 for SOB/Cough, Pneumonia. Chief Complaint: [] Date of admission: 05/27/16 14:59 Discharge date: 06/03/16 Primary care physician: [f_Reg Prim Care Provider] Admitting clinician: [place] Consults: PT Discharging clinician: Edelmira Pacheco Medical - DS: Meds - Discharge Medications Prescriptions: ALPRAZolam [Xanax] 0.5 mg PO BID 30 Days ALPRAZolam [Xanax] 0.5 mg PO BID 30 Days Amiodarone HCl [Pacerone] 100 mg PO DAILY #30 tablet Amiodarone HCl [Cordarone] [facility] tablet DULoxetine [Cymbalta] 30 mg PO DAILY #30 capsule Fluticasone Propionate [Flonase] 1 spray NS BID #1 spray.maury Furosemide [Lasix] 20 mg PO BID #60 tablet predniSONE [Prednisone] 20 mg PO QAC #10 tablet Active and Home Medications: Home Medications Furosemide [Lasix] 20 mg PO DAILY 05/27/16 [History Confirmed 05/27/16 Last Taken Unknown] Ipratropium [Atrovent] 2.5 ml INHALATION Q4H 05/27/16 [History Confirmed Last Taken Unknown] Active Medications Acetaminophen (Tylenol) 650 mg PO Q6HP PRN PRN Reason: PAIN/FEVER > 101 Last Admin: 06/03/16 08:23 Dose: 650 mg Albuterol Sulfate (Ventolin) 2.5 mg NEB Q4HRT PRN PRN Reason: Shortness Of Breath Or Wheezing Last Admin: 05/29/16 07:31 Dose: 2.5 mg Albuterol/Ipratropium (Duoneb) 3 ml NEB Q6HRT [facility] Last Admin: 06/03/16 07:54 Dose: 3 ml Alprazolam (Xanax) 0.5 mg PO TIDP PRN PRN Reason: Anxiety Last Admin: 06/03/16 08:23 Dose: 0.5 mg Amiodarone HCl (Cordarone) 400 mg PO QAC [facility] Last Admin: 06/03/16 08:23 Dose: 400 mg Aspirin (Aspirin) 81 mg PO DAILY [facility] Last Admin: 06/03/16 08:23 Dose: 81 mg Docusate Sodium (Colace) 100 mg PO BID PRN PRN Reason: Constipation Duloxetine HCl (Cymbalta) 30 mg PO DAILY [facility] Last Admin: 06/03/16 08:23 Dose: 30 mg Fluticasone Propionate (Flonase) 1 spray NS BID [facility] Last Admin: 06/03/16 08:22 Dose: 1 spray Furosemide (Lasix) 20 mg PO DAILY [facility] Last Admin: 06/03/16 08:22 Dose: 20 mg Magnesium Hydroxide (Milk Of Magnesia) 30 ml PO DAILYP PRN PRN Reason: Constipation Apixaban 2.5 Mg (Tablet) 1 dose PO BID [facility] Last Admin: 06/03/16 08:23 Dose: 1 dose Ondansetron HCl (Zofran) 4 mg IV Q4HP PRN PRN Reason: Nausea And Vomiting Prednisone (Prednisone) 20 mg PO [facility] Last Admin: 06/03/16 08:22 Dose: 20 mg Vitamin D (Vitamin D3) 2,000 unit PO DAILY [facility] Last Admin: 06/03/16 08:22 Dose: 2,000 unit Medical - DS: Hosp Hospital course: Ms. Olivas is a 85 year old female with pmh signifcant for copd, presented to the ER with hypoxia and shortness of breath, she had failed outpatient treatment with z pack. She was admitted to the hospital with the diagnosis of Pneumonia and copd exacerbation. Pneumonia- CAP, treated with rocehin, patient responded to treatment very well, her sputum cultures was positive for H influeza, which would be covered by rocephin, She had already completed zpack as outpatient. She completed 7 days of antibiotics while being inpatient. COPD exacerbation, - AT baseline she is needing 4 L oxygen, she is back to her baseline oxygen status, She is presently on a slow taper of prednisone, 20mg x 3 more days, then 10mg x 3 days, then 5mg x 3 days then stop. She will continue her home nebulizers as before. Atrial fibrillation, during the hospital stay the patient developed afib with RVR, which required her to stay for longer than anticipated in the hospital. She was initially tried with low dose digoxin prn to see if this was a transient change in rhythm. Unfortunately the patient had persitant afib. Echo soowd aortic sclerosis, normal lvef, LVH. She was tried on cardizem, which unfortunately caused drop in her blood pressure. She was therefore started on amiodarone 400mg. She responded to this treatment very well, and has HR has remained well controlled. She will be loaded with amiodarone 400mg x 2 weeks, then she will take 100mg once daily ( given her advanced age). She was also started on oral anticoagulation with eliquis 2.5mg bid. Anxiety/ Depression- This was fairly well controlled with lexapro as outpatient , however lexapro has significant interactions with amiodarone, after reviewing with pharmacy, duloxetine was the next best alternative, she seems to have tolerated the switch very well. Dose can be adjusted by her pcp. she will continue her home dose of xanax. HTN- Patient bp has remained stable and tenous at times in the hospital, her hctz-triamterne was stopped, can be resumed as outpatient. On discharge the patient was had some elevated potassium and hence her - Time Spent with Patient Total time spent providing and/or coordinating discharge services: Greater than 30 minutes Medical - DS: Exam - Constitutional Vitals: Vital Signs Temp Pulse Pulse Resp BP Pulse Ox 06/03/16 11:12 97.3 F L 20 108/62 99 06/03/16 08:00 99.9 F H 78 18 124/82 95 06/03/16 07:56 95 06/03/16 07:55 101 H 12 06/03/16 04:00 99.0 F 75 18 108/66 92 06/03/16 00:00 97.7 F 75 20 111/69 95 06/02/16 20:00 92 06/02/16 19:56 96.6 F L 20 120/72 100 06/02/16 19:50 64 16 06/02/16 19:44 96 06/02/16 19:43 96 06/02/16 15:41 90/54 06/02/16 15:40 98.0 F 70 18 92/57 95 06/02/16 13:25 75 18 Intake and Output 06/02/16 06/03/16 06/03/16 21:59 05:59 13:59 Intake Total 120 / 120 620 / 620 240 / 240 Output Total 350 / 350 350 / 350 300 / 300 Balance -230 / -230 270 / 270 -60 / -60 Intake: Oral 120 / 120 620 / 620 240 / 240 Output: Void Amount 350 / 350 350 / 350 300 / 300 Other: Meal Dinner Nourishment/Supplement Breakfast Percent of Meal Consumed 75% 100% 75% Feeding Ability Assist with Tray Set Up Independent Independent # Bowel Movements 1 Weight 103 lb 8 oz General appearance: cooperative, no acute distress - Eye Eye exam: Present: PERRL. Absent: periorbital swelling, periorbital tenderness , scleral icterus - ENT ENT exam: Present: mucous membranes moist - Neck Neck exam: Present: normal inspection - Respiratory Respiratory exam: Present: normal respiratory exam. Absent: accessory muscle use, rhonchi, stridor, wheezes - Cardiovascular Cardiovascular exam: Present: irregular rhythm, +S1, +S2. Absent: tachycardia - GI/Abdominal GI/Abdominal exam: Present: normal bowel sounds, soft. Absent: rigid, tenderness - Extremities Exam Extremities exam: Present: Foot pink and warm, neurovascular intact. Absent: calf tenderness, pedal edema - Neurological Exam Neurological exam: Present: alert, CN II-XII intact, oriented X3. Absent: motor sensory deficit - Psychiatric Psychiatric exam: Absent: agitated, anxious - Skin Skin exam: Present: warm Medical - DS: Data Labs on day of discharge: Labs from last 24 hours 06/03/16 06/03/16 06/03/16 10:30 04:40 04:40 WBC 3.6 L RBC 3.50 L Hgb 10.9 L Hct 33.9 L MCV 96.9 MCH 31.2 MCHC 32.2 RDW 22.6 H Plt Count 97 L MPV 10.6 H Gran % 58.9 Lymph % (Auto) 15.4 L [place] % (Auto) 25.5 H Eos % (Auto) 0.2 Baso % (Auto) 0 Gran # 2.1 Lymph # 0.6 L [place] # 0.9 Eos # 0 Baso # 0 Sodium 144 Potassium 5.2 H 5.4 H Chloride 101 Carbon Dioxide 38 H Anion Gap 5.0 L BUN 42 H Creatinine 1.0 GFR Calculation 51 Glucose 114 H Uric Acid 4.8 Calcium 9.2 Phosphorus 2.7 Magnesium 2.3 Total Bilirubin 0.4 Direct Bilirubin < 0.2 GGT 7 AST 8 ALT 13 Alkaline Phosphatase 41 Lactate Dehydrogenase 145 Total Protein 4.5 L Albumin 2.9 L Globulin 1.6 L Albumin/Globulin Ratio 1.8 Triglycerides 88 Medical - DS: A/P - Patient/Caregiver Discharge Instructions Activity: as per physical therapy Diet: Low Sodium (2gm), Cardiac Additional Instructions: Prednisone dose is presently 20mg, she will take 20mg once daily x 3 days, then 10mg once daily x 3 days, then 5mg once daily x 3 days, then stop. Amiodarone dose is 400mg x 13 days, then 100mg once daily patient to follow up with PCP in 1 week for follow up. She will need Chest physiotherapy to help clear her excessive secretions. - Problem Maintenance (1) Fluid overload Status: Acute (2) Paroxysmal atrial fibrillation with RVR Status: Acute (3) Bilateral pneumonia Status: Acute (4) Acute exacerbation of chronic obstructive airways disease Status: Acute - Follow up Plan Disposition: [facility] SNF Prognosis: Fair Rehab Potential: Fair I certify that the patient requires SNF services: Yes Overall status at discharge: patient is progressing back to baseline Medical - DS: Qual - VTE Deep Vein Thrombosis/Pulmonary Embolism Present on Admission: No
== END 2016-06-03 13:45 | DRG 190 ==
LOC: ED 10:24 → ICU 14:59
PROVIDERS: ADMIT Internal Medicine; ATTEND Internal Medicine

== ENCOUNTER 2016-07-21 09:30 | Inpatient (IN) ==
[2016-07-21] MEDS ORDERED: ALBUTEROL SULFATE 2.5 MG/3 ML NEBULIZER NEB ONE (09:52)
[2016-07-21] MEDS ORDERED: METOPROLOL TARTRATE 5 MG/5 ML VIAL IV ONE (10:08)
[2016-07-21] MEDS ORDERED: VANCOMYCIN 1,000 MG in 0.9 % SODIUM CHLORIDE 250 ML IV ONE ×2 (10:08→11:30)
[2016-07-21] MEDS ORDERED: LEVOFLOXACIN 500 MG/100 ML BAG IV ONE (10:09)
--- NOTE | 2016-07-21 10:09 | Emergency Department Note ---
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 She has had a recent hospitalization for pneumonia and also earlier this month completed a course of antibiotics and steroids. Oxygen levels coming in are at 80 percent on 4 L. She is short of breath and unable to give me meaningful history or review of systems but will answer yes or no questions and follow commands- very fatigued appearing. Her son the POA is also present and is able to answer questions She is DNR comfort only- limited intervention but POA does want BiPAP but no intubation - Related Data Home Medications Medication Instructions Recorded Confirmed lenalidomide 2.5 mg capsule 2.5 mg PO QDAY cap 03/30/16 07/09/16 ferrous sulfate 325 mg (65 mg 325 mg PO BID tab 04/29/16 07/09/16 iron) tablet ipratropium bromide 0.02 % 2.5 ml INHALATION TID ml 06/10/16 07/09/16 solution for inhalation Previous Rx's Medication Instructions Recorded arformoterol 15 mcg/2 mL solution 2 ml INHALATION BID 30 Days 08/06/15 for nebulization budesonide 0.5 mg/2 mL suspension 0.5 mg INHALATION BID 90 Days 08/06/15 for nebulization ALPRAZolam [Xanax] 0.5 mg PO BID 30 Days 06/03/16 Acetaminophen [Tylenol] 650 mg PO Q6HP PRN #0 tab 06/03/16 Amiodarone HCl [Pacerone] 100 mg PO DAILY #30 tab 06/03/16 Apixaban [Eliquis] 2.5 mg PO BID #60 tab 06/03/16 DULoxetine [Cymbalta] 30 mg PO DAILY #30 cap 06/03/16 Fluticasone Propionate [Flonase] 1 spray NS BID #1 spray.maury 06/03/16 Furosemide [Lasix] 20 mg PO BID #60 tab 06/03/16 Vitamin D3 2,000 unit PO DAILY #0 tab 01/11/17 4 Liters of O2 via nasal cannula #1 unit 07/03/16 azithromycin 250 mg tablet See Label Instructions .ROUTE 07/03/16 .COMPLEX #6 tab lactobacillus combination no.8 3 3,000 mmu cells PO QDAY #14 cap 07/03/16 billion cell capsule prednisone 10 mg tablet 10 mg PO QAM 30 Days 07/10/16 Clindamycin HCl [Cleocin] 300 mg PO TID #30 capsule 07/15/16 Allergies Allergy/AdvReac Type Severity Reaction Status Date / Time Penicillins Allergy Severe Difficulty Verified 07/15/16 11:49 Breathing Review of Systems All systems ED: reviewed and negative except as stated. (reviewed as much is able) Past Medical History - Past Medical History Source: old records reviewed, obtained from family Medical history: Reports: atrial fibrillation, cancer (myelodysplastic syndrome , melanoma), CHF, COPD, hypertension, osteoporosis, renal disease, other ( hemorrhoid, psoriasis) Surgical history ED: Reports: orthopedic, other (back surgery), other (parotid gland tumor) Psychiatric history: Reports: anxiety, depression - Social History smoking status: Former smoker Alcohol use: Reports: None Drug use: Reports: none Physical Exam Cachectic ill-appearing fragile elderly female in respiratory distress not relieved by recent breathing treatment or oxygen. Nasal cannula oxygen in place. Normocephalic atraumatic. Spontaneous opening of the eyes. Conjunctiva clear sclerae white and anicteric. No nasal discharge or congestion. Will answer yes or no questions and is moving somewhat but is conserving energy certainly. Oropharynx is pink but buccal mucosa is somewhat dry. Neck is supple without lymphadenopathy or thyromegaly. Heart is irregularly irregular rhythm and tachycardia- A. fib with RVR on the monitor into the 130s and 40s. Lungs mostly clear on the left but the right side lower terry have crackles and gurgles. Shallow breathing. End expiratory wheeze. Abdomen soft nontender nondistended. +2 radial pulse. Bilateral pedal edema + 1 on the left +2 on the right. Both feet are somewhat cyanotic with purpura and mottled skin. Alert but unable to assess orientation secondary to respiratory distress - General Limitations: no limitations Course Vital Signs Pulse Rate 109 H 07/21/16 10:33 Respiratory Rate 24 07/21/16 10:33 Blood Pressure 89/65 07/21/16 10:33 Pulse Oximetry (%) 97 07/21/16 10:33 Pulse Rate 109 H 07/21/16 10:33 Respiratory Rate 24 07/21/16 10:33 Blood Pressure 89/65 07/21/16 10:33 Pulse Oximetry (%) 97 07/21/16 10:33 Shortness of Breath/Dyspnea - Lab Data Lab results reviewed: Yes I reviewed the patient's lab results. Result diagrams: 07/21/16 09:40 07/21/16 09:40 Lab Results 07/21/16 07/21/16 07/21/16 Range/Units 09:40 09:40 09:40 WBC 9.0 (4.5-11.0) K/mcL RBC 3.75 L (4.00-5.20) M/mcL Hgb 11.8 L (12.0-15.0) g/dL Hct 39.1 (36.0-48.0) % MCV 104.3 H (80.0-100.0) fL MCH 31.5 (26.0-34.0) pg MCHC 30.2 L (31.0-36.0) g/dL RDW 27.0 H (11.5-14.5) % Plt Count 216 (140-440) K/mcL MPV 11.6 H (7.4-10.4) fL Total Counted 100 Seg Neutrophils % 49 (38-78) % Band Neutrophils % 21 H (0-10) % Lymphocytes % 17 (15-49) % Monocytes % (Manual) 10 H (1-9) % Eosinophils % (Manual) 1 (0-7) % Nucleated RBCs 1 H (0-0) % Reactive Lymphocytes 2 (0-2) % Platelet Estimate Normal (NORMAL) RBC Morphology Abnorm A (NORMAL) Basophilic Stippling Occ A (NONE SEEN) Anisocytosis 3+ A (NONE SEEN) Macrocytosis 1+ A (NONE SEEN) RBC Fragments Rare A (NONE SEEN) VBG Lactic Acid 2.0 (0.5-2.2) mmol/L Sodium 144 (133-145) mmol/L Potassium 4.6 (3.3-5.1) mmol/L Chloride 101 (96-108) mmol/L Carbon Dioxide 33 H (22-30) mmol/L Anion Gap 10.0 (8-16) BUN 25 H (8-23) mg/dl Creatinine 1.2 H (0.6-1.1) mg/dl GFR Calculation 41 Glucose 154 H (70-105) mg/dL Calcium 8.7 (8.6-10.4) mg/dl Total Bilirubin 1.0 (0.0-1.0) mg/dL AST 13 (0-37) U/l ALT 14 (0-40) U/l Alkaline Phosphatase 83 (39-117) U/L Troponin T (0-0.03) ng/ml NT-Pro-B Natriuret Pep 35993.0 H (0-450) pg/ml Total Protein 6.0 (5.9-8.4) gm/dL Albumin 3.2 (3.2-5.2) gm/dL Globulin 2.8 (2.2-3.7) gm/dL Albumin/Globulin Ratio 1.1 (1.0-2.3) 07/21/16 Range/Units 09:40 WBC (4.5-11.0) K/mcL RBC (4.00-5.20) M/mcL Hgb (12.0-15.0) g/dL Hct (36.0-48.0) % MCV (80.0-100.0) fL MCH (26.0-34.0) pg MCHC (31.0-36.0) g/dL RDW (11.5-14.5) % Plt Count (140-440) K/mcL MPV (7.4-10.4) fL Total Counted Seg Neutrophils % (38-78) % Band Neutrophils % (0-10) % Lymphocytes % (15-49) % Monocytes % (Manual) (1-9) % Eosinophils % (Manual) (0-7) % Nucleated RBCs (0-0) % Reactive Lymphocytes (0-2) % Platelet Estimate (NORMAL) RBC Morphology (NORMAL) Basophilic Stippling (NONE SEEN) Anisocytosis (NONE SEEN) Macrocytosis (NONE SEEN) RBC Fragments (NONE SEEN) VBG Lactic Acid (0.5-2.2) mmol/L Sodium (133-145) mmol/L Potassium (3.3-5.1) mmol/L Chloride (96-108) mmol/L Carbon Dioxide (22-30) mmol/L Anion Gap (8-16) BUN (8-23) mg/dl Creatinine (0.6-1.1) mg/dl GFR Calculation Glucose (70-105) mg/dL Calcium (8.6-10.4) mg/dl Total Bilirubin (0.0-1.0) mg/dL AST (0-37) U/l ALT (0-40) U/l Alkaline Phosphatase (39-117) U/L Troponin T 0.02 (0-0.03) ng/ml NT-Pro-B Natriuret Pep (0-450) pg/ml Total Protein (5.9-8.4) gm/dL Albumin (3.2-5.2) gm/dL Globulin (2.2-3.7) gm/dL Albumin/Globulin Ratio (1.0-2.3) ABG shows her pH is 7.34 with pCO2 72 PO2 79 on 3-1/2 liters per minute- started BiPAP - Radiology Data Radiology results reviewed: Yes I reviewed the patient's radiology results. Chest x-ray shows a right lower lobe infiltrate within compared to previous. Stigmata of severe COPD Disposition Clinical Impression: Community acquired pneumonia, Paroxysmal atrial fibrillation with RVR COPD (chronic obstructive pulmonary disease) Qualifiers: COPD type: COPD with acute lower respiratory infection Qualified Code(s): J44.0 - Chronic obstructive pulmonary disease with acute lower respiratory infection Congestive heart failure Qualifiers: Congestive heart failure type: unspecified congestive heart failure type Congestive heart failure chronicity: unspecified congestive heart failure chronicity Qualified Code(s): I50.9 - Heart failure, unspecified Summary: Patient in relatively severe respiratory distress such that it limits her talking. Immediately started IV labs chest x-ray ABG and of course oxygen therapy. Blood pressure is somewhat low and exam shows crackles in the right chest. Start pneumonia sepsis protocol Limited fluid resuscitation secondary to CHF history and concern for fluid overload. Blood culture started along with breathing treatments and antibiotics. Callout for ICU bed. Her son does want BiPAP done if needed but no intubation- ABG shows that BiPAP is in order. A. fib with RVR trial dose of metoprolol. After chemistries came back she is found to be in CHF so Lasix was started, Platt catheter ordered, and fluid stopped. However due to her elevated creatinine and low blood pressures we will start norepinephrine. Discussed case with Dr. Peterson who agreed to accept patient for ICU level care Disposition: Xfer As Inpt ([facility]) Condition: Critical Referrals: Aubrey Meek MD [Primary Care Provider] - Ananth Peterson MD [Physician] -
--- NOTE | 2016-07-21 10:11 | XRay Report ---
HISTORY: Reason for Exam:Short of Breath FINDINGS: There is a small to moderate-sized alveolar infiltrate in the right lower lobe. A more subtle interstitial infiltrate is present in the left lower lobe. Patient has underlying COPD and pulmonary fibrosis. The heart is mildly enlarged. Comparison with the prior exam from 06/16/16 shows the pneumonia is new and the cardiomegaly is also new. IMPRESSION: Bibasilar pneumonia, right worse than left COPD Cardiomegaly Interpreted and Authenticated by: Brian Ridley 07/21/16
[2016-07-21 10:24] LABS: Mean Cell Volume 104.3 fL (80.0-100.0); Mean Corpuscular HGB Conc 30.2 g/dL (31.0-36.0); Mean Corpuscular Hemoglobin 31.5 pg (26.0-34.0); Platelet Count 216 K/mcL (140-440); RBC 3.75 M/mcL (4.00-5.20)
[2016-07-21 11:03] LABS: ALT/SGPT 14 U/l (0-40); Albumin 3.2 gm/dL (3.2-5.2); Albumin/Globulin Ratio 1.1 (1.0-2.3); Alkaline Phosphatase 83 U/L (39-117); Blood Urea Nitrogen 25 mg/dl (8-23)
[2016-07-21] MEDS ORDERED: 0.9 % SODIUM CHLORIDE 1,000 ML IV ONE ×2 (11:13→14:21)
[2016-07-21 11:16] LABS: Anisocytosis 3+ (NONE SEEN); Band Neutrophils % 21 % (0-10); Basophilic Stippling OCC (NONE SEEN); Eosinophils % (Manual) 1 % (0-7); Lymphocytes % 17 % (15-49); Macrocytosis 1+ (NONE SEEN); Monocytes % (Manual) 10 % (1-9); Platelet Estimate NORMAL (NORMAL); RBC Morphology ABNORM (NORMAL); Segmented Neutrophils % 49 % (38-78)
[2016-07-21] MEDS ORDERED: FUROSEMIDE 40 MG/4 ML VIAL IV ONE (11:17)
[2016-07-21] MEDS ORDERED: NOREPINEPHRINE BITARTRATE 16 MG in 0.9 % SODIUM CHLORIDE 234 ML IV SCH (11:30)
[2016-07-21] MEDS ORDERED: 0.9 % SODIUM CHLORIDE 250 ML IV SCH (11:30)
[2016-07-21] MEDS ORDERED: POTASSIUM CHLORIDE 20 MEQ PACKET PO PRN (12:57)
[2016-07-21] MEDS ORDERED: VANCOMYCIN PER PHARMACY IV ONE (12:57)
[2016-07-21] MEDS ORDERED: ACETAMINOPHEN 325 MG TABLET PO PRN (12:57)
[2016-07-21] MEDS ORDERED: MAGNESIUM SULFATE 2 GM/50 ML BAG IV PRN (12:57)
[2016-07-21] MEDS ORDERED: traZODone HCL 50 MG TABLET PO PRN (12:57)
[2016-07-21] MEDS ORDERED: ONDANSETRON 4 MG/2 ML VIAL IV PRN (12:57)
[2016-07-21] MEDS ORDERED: MAGNESIUM HYDROXIDE 30 ML ORAL.SUSP PO PRN (12:57)
[2016-07-21] MEDS ORDERED: VASOPRESSIN 20 UNIT in DEXTROSE 5% IN WATER 99 ML IV PRN (12:57)
[2016-07-21] MEDS ORDERED: ACETAMINOPHEN 1,000 MG/100 ML BOTTLE IV PRN (12:57)
[2016-07-21 13:20] LABS: Appearance,Urine CLEAR; Bacteria,Urine 0 /hpf (0); Bilirubin,Urine NEG (NEG); Color,Urine YELLOW; Glucose,Urine (UA) NORM (NORM); Leukocyte Esterase,Urine NEG /mcL (NEG); Mucus,Urine FEW /hpf (0); Nitrate,Urine NEG (NEG); Protein,Urine NEG mg/dL (<25); Specific Gravity,Urine 1.012 (1.000-1.035); Urine Blood NEG ery/mcL (<5); Urine Hyaline Cast 5 /lpf (0-2); Urine RBC 1 /hpf (0-1); Urine Squamous Epithelial Cell 0 /hpf (0-4); Urine WBC < 1 /hpf (0-4); Urobilinogen,Urine NORM (NORM)
[2016-07-21 13:29] LABS: C-Reactive Protein 2.2 mg/dl (0.0-0.8)
[2016-07-21] MEDS: CEFEPIME 2 GM in DEXTROSE 5% IN WATER 50 ML IV SCH ×2 (14:12→22:56)
[2016-07-21] MEDS: 0.9 % SODIUM CHLORIDE 250 ML IV SCH (14:17)
[2016-07-21] MEDS: 0.9 % SODIUM CHLORIDE 10 ML SYRINGE IV SCH ×2 (14:20→22:50)
[2016-07-21] MEDS: 0.9 % SODIUM CHLORIDE 1,000 ML IV SCH ×2 (14:20→17:26)
[2016-07-21] MEDS: METOPROLOL TARTRATE 5 MG/5 ML VIAL IV SCH ×3 (14:57→15:05)
--- NOTE | 2016-07-21 15:38 | XRay Report ---
HISTORY: Reason for Exam:cvp position FINDINGS: There is a right internal jugular catheter position with the tip in the region of the superior vena cava. There is no pneumothorax. The lungs are hyperinflated due to emphysema. There is pulmonary fibrosis. A subtle alveolar infiltrate is present in the right lower lobe. Heart size is within normal limits. IMPRESSION: No complication following central line placement ICU was called with results Interpreted and Authenticated by: Brian Ridley 07/21/16
[2016-07-21] MEDS: IPRATROPIUM/ALBUTEROL 3 ML AMPUL.NEB NEB SCH ×3 (15:54→22:38)
--- NOTE | 2016-07-21 17:02 | History and Physical Report ---
DATE OF ADMISSION: 07/21/2016 REASON FOR ADMISSION: Worsening shortness of breath, fevers, chills, low blood pressure, mental status change. HISTORY OF CHIEF COMPLAINT: The patient is an 85-year-old who resides at [facility] and carries a diagnosis of advanced COPD and chronically on oxygen. She comes to [facility] Emergency Room with increasing shortness of breath, purulence. She was last seen normal by her son the night before. However, this morning shortly after she got up, she was in significant respiratory distress, unable to breathe. With increasing concerns and mental status change she was transferred to [facility] ER. Initial workup was significant for septic shock with high white count with bilateral pneumonia on chest imaging. She was started on vasopressors after crystalloids were administered. Hospitalist Service was consulted. At the time of examination, the patient is accompanied with her son. He was able to provide some of the history. The patient is very distressed, unable to talk in full sentences. She is currently on BiPAP. She is a NO CODE, and hence intubation is not an option. The patient's family clearly understands the risk of . However, would want to respect the patient's wishes of being DNR. REVIEW OF SYSTEMS: Review of system was attempted, could not be performed due to patient on BiPAP in significant distress. However, from review of medical records and discussion with son, there is no recent diarrhea, dysuria. The patient is significantly emaciated with a BMI of 18. PAST MEDICAL HISTORY: 1. Anxiety disorder. 2. COPD, oxygen dependent. 3. Atrial fibrillation. CURRENT MEDICATIONS: 1. Prednisone 10 mg. 2. Lenalidomide 2.5 mg. 3. Budesonide inhaled b.i.d. 4. Azithromycin 250 mg. 5. Fluticasone inhaled. 6. Lasix 20 mg b.i.d. 7. Duloxetine 30 mg daily. 8. Clindamycin 300 mg t.i.d. 9. Apixaban 2.5 mg b.i.d. 10. Amiodarone 100 mg daily. 11. Alprazolam 0.5 mg b.i.d. 12. Oxygen 4 liters. SOCIAL HISTORY: The patient resides at [facility]. She is a DNR/DNI. Her son is the POA. Very occasional alcohol use. Former smoker but quit at age 70. She is retired. No history of substance abuse. FAMILY HISTORY: Reviewed from medical records. Father with coronary artery disease, cousin with colon cancer. PHYSICAL EXAMINATION: GENERAL: The patient is diaphoretic, remarkable distress, currently on BiPAP. BMI 18. Height 5 feet 6 inches. VITAL SIGNS: Blood pressure 79/61, respiration rate 24, temperature 97.4, pulse 140 irregular, sats 98% on 40% FiO2 BiPAP. HEENT: Pupils symmetric. Oral cavity is dry. No ear or nose discharge. Temporal wasting. Minimal pallor. NECK: No lymphadenopathy. CHEST: S1, S2, tachycardia, irregular rhythm. ESM grade I. Expiratory rhonchi. Diminished breath sounds bilateral bases, late inspiratory crackles. ABDOMEN: Soft. LOWER EXTREMITIES: No cyanosis or clubbing. Minimal edema. No joint swelling except for significant cyanosis bilateral feet. SKIN: No suspicious lesion other than generalized xerosis. PSYCH: Anxious, diaphoretic. NEURO: Moving all four extremities, but higher function not able to be performed. LABS AND IMAGING: UA unremarkable. Sodium 140, potassium 4.6, creatinine 1.2, and BUN 25. BNP 10,000. CRP 2.2. LFTs unremarkable. Lactic acid 2. White count 9, hemoglobin 11.8, platelets 216, bands 21%. ESR 10. X-ray chest: Bibasilar pneumonia, right more than left. Blood gas 7.34/72/79 on 3.5 liters oxygen. ASSESSMENT AND PLAN: An 85-year-old with hypoxic respiratory failure, septic shock, bilateral pneumonia. 1. Hypoxic respiratory failure. Start patient on noninvasive ventilation. However, at this time given likely aspiration pneumonia and mental status change this will be contraindicated, but given profound hypoxia and imminent this is the only modality which can be used. Son is agreeable and wishes to continue BiPAP and no intubation. Continue aggressive intermittent suctioning and maintain aspiration precautions. 2. Septic shock. Continue vasopressors along with crystalloids. Keep MAP at goal. Broad antibiotic coverage. 3. Bilateral pneumonia. Nosocomial versus aspiration. Continue Gram-negative/anaerobe coverage along with MRSA and pseudomonas with vancomycin, cefepime and Levaquin. 4. Mental status change secondary to hypercapnic hypoxic respiratory failure, underlying sepsis. Continue close monitoring. PLAN FOR TODAY: 1. Admit in ICU. 2. Noninvasive ventilation. 3. Septic shock management on pressors, antibiotics. 4. The patient is critically ill, TOGIA[place] score 25. Very high risk mortality. Family made aware. Total critical care time spent over 35 minutes in reviewing blood gases, management of noninvasive ventilation, management of pressors and transfer of patient to ICU, along with initial stabilization, in addition to 55 minutes spent on history and physical, review of records and discussion with care providers and family. AA:barbara Job ID: [id number] Doc ID: [id number] Ananth Meek MD
[2016-07-21] MEDS ORDERED: DIGOXIN 500 MCG/2 ML AMPUL IV ONE (17:54)
[2016-07-21] MEDS ORDERED: METOPROLOL TARTRATE 25 MG TABLET PO ONE (17:55)
[2016-07-21] MEDS: BUDESONIDE 0.5 MG/2 ML AMPUL.NEB NEB SCH (19:06)
[2016-07-21] MEDS: SENNOSIDES/DOCUSATE SODIUM 1 TAB TABLET PO SCH (22:50)
[2016-07-21] MEDS: HEPARIN 5,000 UNIT/ML VIAL SQ SCH (22:50)
[2016-07-21] MEDS: DOCUSATE SODIUM 100 MG CAPSULE PO SCH (22:50)
[2016-07-22] MEDS: 0.9 % SODIUM CHLORIDE 250 ML IV SCH ×2 (02:35→15:47)
[2016-07-22] MEDS: IPRATROPIUM/ALBUTEROL 3 ML AMPUL.NEB NEB SCH ×6 (03:23→23:17)
[2016-07-22] MEDS: 0.9 % SODIUM CHLORIDE 10 ML SYRINGE IV SCH ×3 (05:32→20:52)
[2016-07-22 05:50] LABS: Mean Cell Volume 104.9 fL (80.0-100.0); Mean Corpuscular HGB Conc 30.7 g/dL (31.0-36.0); Mean Corpuscular Hemoglobin 32.2 pg (26.0-34.0); Platelet Count 167 K/mcL (140-440); RBC 3.29 M/mcL (4.00-5.20); Red Cell Distribution Width 26.6 % (11.5-14.5)
[2016-07-22 06:22] LABS: ALT/SGPT 12 U/l (0-40); Albumin 2.8 gm/dL (3.2-5.2); Albumin/Globulin Ratio 1.3 (1.0-2.3); Alkaline Phosphatase 67 U/L (39-117); Bilirubin,Direct 0.2 mg/dL (0.0-0.3); Blood Urea Nitrogen 27 mg/dl (8-23); Gamma Glutamyl Transpeptidase 9 U/L (5-36); Magnesium 2.2 mg/dL (1.6-2.5); Phosphorous 4.6 mg/dL (2.7-4.5); Uric Acid 6.7 mg/dL (2.5-8.0)
[2016-07-22] MEDS: BUDESONIDE 0.5 MG/2 ML AMPUL.NEB NEB SCH ×2 (06:59→19:10)
[2016-07-22] MEDS: PANTOPRAZOLE 40 MG VIAL IV SCH (07:33)
[2016-07-22 08:50] LABS: Anisocytosis 3+ (NONE SEEN); Band Neutrophils % 32 % (0-10); Basophils % (Manual) 1 % (0-2); Lymphocytes % 8 % (15-49); Macrocytosis 1+ (NONE SEEN); Monocytes % (Manual) 9 % (1-9); Ovalocytes 1+ (NONE SEEN); Platelet Estimate NORMAL (NORMAL); RBC Morphology ABNORM (NORMAL); Segmented Neutrophils % 49 % (38-78)
[2016-07-22] MEDS: CEFEPIME 2 GM in DEXTROSE 5% IN WATER 50 ML IV SCH ×2 (09:04→20:52)
--- NOTE | 2016-07-22 10:20 | Internal Med Progress Note ---
Medical - PN: Subj Patient information: Note initiated : 07/22/16 at 10:18 am Service Date, if different from initiated Date: [] Patient: Rochelle Olivas 85 y/o F admitted on 07/21/16 for SOB/Hypoxic Respiratory Failure, Septic Shock, PNA. Chief Complaint: [] Interval history: 07/21- atient admitted with septic shock/bilateral pneumonia. Started on vasopressors. nearly obtunded status. On broad antibiotic coverage/noninvasive ventilation in light of hypoxic respiratory failure. Critically ill. [place] 2 score over 20 indicating high-risk mortality. Family aware. patient is no code and hence intubation on an option. aggressive and close hemodynamic monitoring and management in ICU 07/22-patient off pressors. Improving urine output. Off BiPAP and 5 L oxygen. More alert and responsive. still unable to talk in full sentences. Family at bedside. Discussed clinical findings including chest imaging blood gas hemodynamic status with family and plan of care. Patient remains high-risk mortality given massive aspiration with bilateral pneumonia leading to hypoxia respiratory failure. Continue close ICU monitoring - Constitutional Vitals: Vital Signs Temp Pulse Resp BP Pulse Ox 99.3 F 100 H 22 96/51 98 07/22/16 07:00 07/22/16 07:14 07/22/16 07:14 07/22/16 07:00 07/22/16 07:14 Period Temp Pulse Resp BP Sys/[place] Pulse Ox Last 24 Hr 97.5 F-99.3 F 86-135 18-31 88-134/51-105 90-100 Intake and Output 07/21/16 07/22/16 07/22/16 21:59 05:59 13:59 Intake Total 1204 / 1204 285 / 285 Output Total 825 / 825 575 / 575 Balance 379 / 379 -290 / -290 Weight 119 lb 1.6 oz Intake & Output: Intake & Output 07/21/16 07/22/16 07/22/16 21:59 05:59 13:59 Intake Total 1204 / 1204 285 / 285 Output Total 825 / 825 575 / 575 Balance 379 / 379 -290 / -290 Weight 119 lb 1.6 oz Intake: IV 1204 / 1204 235 / 235 Sodium Chloride 0.9% 1, 746 / 746 000 ml @ Wide Open IV BOLUS ONE Rx#:[id number] Sodium Chloride 0.9% 250 88 / 88 162 / 162 ml @ 20 mls/hr IV . [id number] TIFFANY Rx#:[id number] Dextrose 5% in Water 50 50 / 50 50 / 50 ml @ 100 mls/hr IV Q12H TIFFANY with Maxipime 2 gm Rx #:[id number] Levophed 16 mg In Sodium 70 / 70 23 / 23 Chloride 0.9% 234 ml @ 10 MCG/MIN 9.37 mls/hr IV Q24H TIFFANY Rx#:[id number] Sodium Chloride 0.9% 250 250 / 250 ml @ 250 mls/hr IV ONCE ONE with Vancomycin 1,000 mg Rx#:[id number] Oral 50 / 50 Output: Urine Catheter Amount 825 / 825 575 / 575 Other: # Bowel Movements 0 General appearance: moderate distress (SOB) Exam: weak and thin body habitus [place] labored breathing Foleys draining clear urine Unable to talk in full sentences no lymphedema Tachycardia resolved Medical - PN: Obj Da - Labs CBC & Chem 7: 07/22/16 03:34 07/22/16 03:34 Labs: Abnormal Lab Results 07/22/16 07/22/16 03:34 03:34 RBC 3.29 L Hgb 10.6 L Hct 34.5 L MCV 104.9 H MCHC 30.7 L RDW 26.6 H MPV 11.5 H Band Neutrophils % 32 H Lymphocytes % 8 L Nucleated RBCs 1 H RBC Morphology Abnorm A Polychromasia 1+ A Anisocytosis 3+ A Macrocytosis 1+ A Ovalocytes 1+ A Sodium 146 H Carbon Dioxide 32 H BUN 27 H Calcium 8.2 L Phosphorus 4.6 H Total Protein 5.0 L Albumin 2.8 L Meds: Medications Acetaminophen (Tylenol) 650 mg PO Q4-6HP PRN PRN Reason: PAIN/FEVER > 101 Albuterol/Ipratropium (Duoneb) 3 ml NEB Q4HRT [facility] Last Admin: 07/22/16 06:59 Dose: 3 ml Budesonide (Pulmicort) 0.5 mg NEB Q12 [facility] Last Admin: 07/22/16 06:59 Dose: 0.5 mg Docusate Sodium (Colace) 100 mg PO BID [facility] Last Admin: 07/21/16 22:50 Dose: Not Given Heparin Sodium (Porcine) (Heparin) 5,000 unit SQ Q12 [facility] Last Admin: 07/21/16 22:50 Dose: Not Given Norepinephrine Bitartrate 16 (mg/ Sodium Chloride) 250 mls @ 9.37 mls/hr IV Q24H [facility]; 10 MCG/MIN PRN Reason: Protocol Cefepime HCl 2 gm/ Dextrose 50 mls @ 100 mls/hr IV Q12H [facility] Last Admin: 07/22/16 09:04 Dose: 100 mls/hr Magnesium Sulfate (Magnesium Sulfate) 2 gm in 50 mls @ 50 mls/hr IV UD PRN PRN Reason: MG = or < 1.7 Sodium Chloride (Sodium Chloride 0.9%) 1,000 mls @ 50 mls/hr IV .Q20H [facility] Stop: 07/24/16 00:56 Last Admin: 07/21/16 17:26 Dose: 50 mls/hr Sodium Chloride (Sodium Chloride 0.9%) 250 mls @ 20 mls/hr IV .[id number] [facility] Last Admin: 07/22/16 02:35 Dose: Not Given Acetaminophen (Ofirmev) 1,000 mg in 100 mls @ 200 mls/hr IV Q6HP PRN PRN Reason: PAIN/FEVER > 101 Vasopressin 20 unit/ Dextrose 100 mls @ 12 mls/hr IV Q8HP PRN; Protocol; 0.04 UNIT/MIN PRN Reason: Hypotension Vancomycin HCl 1,000 mg/ (Sodium Chloride) 250 mls @ 250 mls/hr IV Q24H [facility] Iron Carb/Multivit/[place]/Folic Acid (Multivitamin W/Minerals) 1 tab PO DAILY [facility] Magnesium Hydroxide (Milk Of Magnesia) 30 ml PO HSP PRN PRN Reason: Constipation Ondansetron HCl (Zofran) 4 mg IV Q4-6HP PRN PRN Reason: Nausea And Vomiting Pantoprazole Sodium (Protonix) 40 mg IV QAMAC [facility] Last Admin: 07/22/16 07:33 Dose: 40 mg Potassium Chloride (Klor-Con) 40 meq PO DAILYP PRN PRN Reason: K+ < 3.5 Senna/Docusate Sodium (Senna Plus Tablet) 1 tab PO HS [facility] Last Admin: 07/21/16 22:50 Dose: Not Given Sodium Chloride (Saline Flush) 10 ml IV Q8 [facility] Last Admin: 07/22/16 05:32 Dose: 10 ml Trazodone HCl (Desyrel) 50 mg PO HSP PRN PRN Reason: Insomnia Medical - PN: A/P - Time Spent With Patient Total time spent is greater than 50% in coordination of care (as documented) at patient's floor/unit and/or counseling patient: Greater than 35 minutes (critical care time) (1) Septic shock Status: Acute Assessment and plan: * Septic shock with multiorgan dysfunction including encephalopathy- Secondary to aspiration pneumonia. on broad antibiotic coverage. High-risk mortality given [place] score 20. Continue ICU care. Off pressors. Continue close hemodynamic watch * Hypoxic respiratory failure-initially on noninvasive ventilation. Now on 5 L oxygen. Continue aggressive pulmonary toilet/aspiration precautions/ bronchodilators/speech therapy eval * Bilateral aspiration pneumonia-aspiration precaution/ST eval. Keep nothing by mouth * A. fib with RVR-Rate controlled on amiodarone/beta nanette * Acute encephalopathy secondary to sepsis/hypoxemia-clinically improving. Patient more verbal. * History of atrial fibrillation-continue albuterol/beta blockercontinue anticoagulation for CVA prophylaxis * Anxiety continue duloxetine/alprazolam plan * broad antibiotic coverage * ICU monitoring * Aspiration precautions/ST eval * Rate control measures * Critically ill high risk mortality family aware. Current Visit: Yes Medical - PN: Qual - Stroke Symptom Onset Unknown: No - VTE Deep Vein Thrombosis/Pulmonary Embolism Present on Admission: No
[2016-07-22] MEDS: 0.9 % SODIUM CHLORIDE 1,000 ML IV SCH ×2 (10:49→14:38)
[2016-07-22] MEDS: MULTIVIT,THER IRON,CA,FA & MIN 1 TABLET PO SCH (10:50)
[2016-07-22] MEDS: HEPARIN 5,000 UNIT/ML VIAL SQ SCH ×2 (10:50→20:52)
[2016-07-22] MEDS: DOCUSATE SODIUM 100 MG CAPSULE PO SCH ×2 (10:50→20:52)
--- NOTE | 2016-07-22 11:38 | Procedure Note ---
Procedures - Central Line Placement Right IJ Consent obtained: verbal consent Time out performed: Yes Patient placed on monitor/pulse ox: Yes MD prep: mask, sterile gown, sterile gloves, cap Central line prep: 2% Chlorhexidine scrub Local anesthesia used: lidocaine 1% Ultrasound used for placement: Yes Central line lumen inserted: quad, 16 cm Post procedure: sutured in place, good blood return, all ports aspirated, flushed, capped, sterile dressing applied Post procedure x-ray: tip of catheter in good position, no pneumothorax seen Patient tolerated procedure: well, no complications Complications: none
[2016-07-22] MEDS ORDERED: VANCOMYCIN 1,000 MG in 0.9 % SODIUM CHLORIDE 250 ML IV SCH (12:00)
[2016-07-22] MEDS ORDERED: NOREPINEPHRINE BITARTRATE 16 MG in 0.9 % SODIUM CHLORIDE 234 ML IV SCH (12:00)
[2016-07-22] MEDS: SENNOSIDES/DOCUSATE SODIUM 1 TAB TABLET PO SCH (20:52)
[2016-07-23] MEDS: IPRATROPIUM/ALBUTEROL 3 ML AMPUL.NEB NEB SCH ×6 (03:24→23:25)
[2016-07-23] MEDS: 0.9 % SODIUM CHLORIDE 250 ML IV SCH ×2 (04:44→21:32)
[2016-07-23 05:23] LABS: Mean Cell Volume 102.7 fL (80.0-100.0); Mean Corpuscular HGB Conc 31.1 g/dL (31.0-36.0); Platelet Count 139 K/mcL (140-440); RBC 3.38 M/mcL (4.00-5.20); Red Cell Distribution Width 26.3 % (11.5-14.5)
[2016-07-23] MEDS: 0.9 % SODIUM CHLORIDE 1,000 ML IV SCH ×2 (05:55→13:12)
[2016-07-23 06:03] LABS: ALT/SGPT 10 U/l (0-40); Albumin 2.6 gm/dL (3.2-5.2); Albumin/Globulin Ratio 1.1 (1.0-2.3); Alkaline Phosphatase 60 U/L (39-117); Bilirubin,Direct < 0.2 mg/dL (0.0-0.3); Blood Urea Nitrogen 32 mg/dl (8-23); Gamma Glutamyl Transpeptidase 8 U/L (5-36); Magnesium 2.4 mg/dL (1.6-2.5); Phosphorous 4.5 mg/dL (2.7-4.5); Uric Acid 7.7 mg/dL (2.5-8.0)
[2016-07-23] MEDS: BUDESONIDE 0.5 MG/2 ML AMPUL.NEB NEB SCH ×2 (07:09→20:05)
[2016-07-23] MEDS: 0.9 % SODIUM CHLORIDE 10 ML SYRINGE IV SCH ×3 (07:32→21:33)
[2016-07-23] MEDS: PANTOPRAZOLE 40 MG VIAL IV SCH (07:32)
--- NOTE | 2016-07-23 08:04 | XRay Report ---
HISTORY: Reason for Exam: Shortness of breath, hypoxic respiratory failure, septic shock and pneumonia FINDINGS: A moderate-sized alveolar infiltrate is developed in the right lower lobe. Superimposed is a small pleural effusion. This has become significantly worse since 07/21/16. There is underlying COPD with hyperinflated lungs and pulmonary fibrosis. The heart size is normal. Right internal jugular line is well-positioned. There is no pneumothorax. IMPRESSION: Moderate size right lower lobe pneumonia with small right pleural effusion. COPD Interpreted and Authenticated by: Brian Ridley 07/23/16
[2016-07-23 08:33] LABS: Anisocytosis 3+ (NONE SEEN); Band Neutrophils % 13 % (0-10); Eosinophils % (Manual) 2 % (0-7); Lymphocytes % 8 % (15-49); Macrocytosis 1+ (NONE SEEN); Monocytes % (Manual) 13 % (1-9); Myelocytes % 1 % (0-0); Ovalocytes FEW (NONE SEEN); Platelet Estimate DECREASED (NORMAL); RBC Morphology ABNORM (NORMAL); Segmented Neutrophils % 59 % (38-78); Toxic Granulation FEW (NONE SEEN)
[2016-07-23] MEDS ORDERED: APIXABAN 5 MG TABLET PO SCH (09:00)
[2016-07-23] MEDS: CEFEPIME 2 GM in DEXTROSE 5% IN WATER 50 ML IV SCH ×2 (10:01→21:31)
[2016-07-23] MEDS: HEPARIN 5,000 UNIT/ML VIAL SQ SCH (10:01)
[2016-07-23] MEDS: MULTIVIT,THER IRON,CA,FA & MIN 1 TABLET PO SCH (10:01)
[2016-07-23] MEDS: DOCUSATE SODIUM 100 MG CAPSULE PO SCH ×2 (10:01→21:32)
--- NOTE | 2016-07-23 10:16 | Internal Med Progress Note ---
Medical - PN: Subj Patient information: Note initiated : 07/23/16 at 10:14 am Service Date, if different from initiated Date: [] Patient: Rochelle Olivas 85 y/o F admitted on 07/21/16 for SOB/Hypoxic Respiratory Failure, Septic Shock, PNA. Chief Complaint: [] Interval history: 07/21- atient admitted with septic shock/bilateral pneumonia. Started on vasopressors. nearly obtunded status. On broad antibiotic coverage/noninvasive ventilation in light of hypoxic respiratory failure. Critically ill. [place] 2 score over 20 indicating high-risk mortality. Family aware. patient is no code and hence intubation on an option. aggressive and close hemodynamic monitoring and management in ICU 3-patient off pressors. Improving urine output. Off BiPAP and 5 L oxygen. More alert and responsive. still unable to talk in full sentences. Family at bedside. Discussed clinical findings including chest imaging blood gas hemodynamic status with family and plan of care. Patient remains high-risk mortality given massive aspiration with bilateral pneumonia leading to hypoxia respiratory failure. Continue close ICU monitoring 07/23-patient off BiPAP. On 2 L oxygen. More alert and lucid in unresponsive.. Speech therapy ongoing. Complaint of central chest pain on swallowing. On level to nectar hick diet per ST. Esophagram ordered to rule out stenosis as a cause of recurrent aspiration. No overnight fever chills nausea vomiting. afebrile. white count of 4000. Platelets of 139. DC heparin . Started SCDs. case discussed with patient's son and possible transfer to SNF in 48 hours due to significant clinical improvement. Transfer to medical floor in 24 hours. - Constitutional Vitals: Vital Signs Temp Pulse Resp BP Pulse Ox 97.5 F L 86 20 111/60 96 07/23/16 05:56 07/23/16 07:24 07/23/16 07:24 07/23/16 05:56 07/23/16 07:24 Period Temp Pulse Resp BP Sys/[place] Pulse Ox Last 24 Hr 97.4 F-98.6 F 86-101 18-26 86-115/53-70 86-100 Intake and Output 07/22/16 07/23/16 07/23/16 21:59 05:59 13:59 Intake Total 300 / 300 Output Total 230 / 230 350 / 350 Balance 70 / 70 -350 / -350 Weight 118 lb 4.8 oz Intake & Output: Intake & Output 07/22/16 07/23/16 07/23/16 21:59 05:59 13:59 Intake Total 300 / 300 Output Total 230 / 230 350 / 350 Balance 70 / 70 -350 / -350 Weight 118 lb 4.8 oz Intake: IV 300 / 300 Dextrose 5% in Water 50 50 / 50 ml @ 100 mls/hr IV Q12H TIFFANY with Maxipime 2 gm Rx #:[id number] Sodium Chloride 0.9% 250 250 / 250 ml @ 250 mls/hr IV Q24H TIFFANY with Vancomycin 1,000 mg Rx#:[id number] Output: Urine Catheter Amount 230 / 230 350 / 350 General appearance: cooperative, no acute distress Exam: alert oriented on 2 L oxygen Nonlabored breathing no anxiety barreled chest Medical - PN: Obj Da - Labs CBC & Chem 7: 07/23/16 03:49 07/23/16 03:49 Labs: Abnormal Lab Results 07/23/16 07/23/16 07/22/16 03:49 03:49 03:34 WBC 4.2 L RBC 3.38 L Hgb 10.8 L Hct 34.7 L MCV 102.7 H MCHC RDW 26.3 H Plt Count 139 L MPV 12.3 H Band Neutrophils % 13 H Lymphocytes % 8 L Monocytes % (Manual) 13 H Myelocytes % 1 H Nucleated RBCs WBC Morphology Abnorm A Reactive Lymphocytes 4 H Toxic Granulation Few A RBC Morphology Abnorm A Polychromasia Few A Anisocytosis 3+ A Macrocytosis 1+ A Ovalocytes Few A Sodium 149 H 146 H Carbon Dioxide 31 H 32 H BUN 32 H 27 H Creatinine 1.3 H Calcium 8.2 L Phosphorus 4.6 H Total Protein 4.9 L 5.0 L Albumin 2.6 L 2.8 L 07/22/16 03:34 WBC RBC 3.29 L Hgb 10.6 L Hct 34.5 L MCV 104.9 H MCHC 30.7 L RDW 26.6 H Plt Count MPV 11.5 H Band Neutrophils % 32 H Lymphocytes % 8 L Monocytes % (Manual) Myelocytes % Nucleated RBCs 1 H WBC Morphology Reactive Lymphocytes Toxic Granulation RBC Morphology Abnorm A Polychromasia 1+ A Anisocytosis 3+ A Macrocytosis 1+ A Ovalocytes 1+ A Sodium Carbon Dioxide BUN Creatinine Calcium Phosphorus Total Protein Albumin Meds: Medications Acetaminophen (Tylenol) 650 mg PO Q4-6HP PRN PRN Reason: PAIN/FEVER > 101 Albuterol/Ipratropium (Duoneb) 3 ml NEB Q4HRT [facility] Last Admin: 07/23/16 07:09 Dose: 3 ml Budesonide (Pulmicort) 0.5 mg NEB Q12 [facility] Last Admin: 07/23/16 07:09 Dose: 0.5 mg Docusate Sodium (Colace) 100 mg PO BID [facility] Last Admin: 07/23/16 10:01 Dose: 100 mg Heparin Sodium (Porcine) (Heparin) 5,000 unit SQ Q12 [facility] Last Admin: 07/23/16 10:01 Dose: Not Given Norepinephrine Bitartrate 16 (mg/ Sodium Chloride) 250 mls @ 9.37 mls/hr IV Q24H [facility]; 10 MCG/MIN PRN Reason: Protocol Last Admin: 07/22/16 13:08 Dose: Not Given Cefepime HCl 2 gm/ Dextrose 50 mls @ 100 mls/hr IV Q12H [facility] Last Admin: 07/23/16 10:01 Dose: 100 mls/hr Magnesium Sulfate (Magnesium Sulfate) 2 gm in 50 mls @ 50 mls/hr IV UD PRN PRN Reason: MG = or < 1.7 Sodium Chloride (Sodium Chloride 0.9%) 1,000 mls @ 50 mls/hr IV .Q20H [facility] Stop: 07/24/16 00:56 Last Admin: 07/23/16 05:55 Dose: Not Given Sodium Chloride (Sodium Chloride 0.9%) 250 mls @ 20 mls/hr IV .[id number] [facility] Last Admin: 07/23/16 04:44 Dose: Not Given Acetaminophen (Ofirmev) 1,000 mg in 100 mls @ 200 mls/hr IV Q6HP PRN PRN Reason: PAIN/FEVER > 101 Vasopressin 20 unit/ Dextrose 100 mls @ 12 mls/hr IV Q8HP PRN; Protocol; 0.04 UNIT/MIN PRN Reason: Hypotension Vancomycin HCl 1,000 mg/ (Sodium Chloride) 250 mls @ 250 mls/hr IV Q24H [facility] Last Infusion: 07/22/16 16:53 Dose: Infused Iron Carb/Multivit/Ponce/Folic Acid (Multivitamin W/Minerals) 1 tab PO DAILY [facility] Last Admin: 07/23/16 10:01 Dose: 1 tab Magnesium Hydroxide (Milk Of Magnesia) 30 ml PO HSP PRN PRN Reason: Constipation Morphine Sulfate (Morphine) 2 - 5 mg IV Q2-4HP PRN PRN Reason: Anxiety Last Admin: 07/22/16 22:02 Dose: 2 mg Ondansetron HCl (Zofran) 4 mg IV Q4-6HP PRN PRN Reason: Nausea And Vomiting Pantoprazole Sodium (Protonix) 40 mg IV QAMAC [facility] Last Admin: 07/23/16 07:32 Dose: 40 mg Potassium Chloride (Klor-Con) 40 meq PO DAILYP PRN PRN Reason: K+ < 3.5 Senna/Docusate Sodium (Senna Plus Tablet) 1 tab PO HS [facility] Last Admin: 07/22/16 20:52 Dose: Not Given Sodium Chloride (Saline Flush) 10 ml IV Q8 [facility] Last Admin: 07/23/16 07:32 Dose: 10 ml Trazodone HCl (Desyrel) 50 mg PO HSP PRN PRN Reason: Insomnia Medical - PN: A/P - Time Spent With Patient Total time spent is greater than 50% in coordination of care (as documented) at patient's floor/unit and/or counseling patient: 25 - 35 minutes (1) Septic shock Status: Acute Assessment and plan: * Septic shock with multiorgan dysfunction including encephalopathy- Secondary to aspiration pneumonia. clinical improvement noted on on broad antibiotic coverage. off pressors * Hypoxic respiratory failure- now on 2 L oxygen. off noninvasive ventilation. * Bilateral aspiration pneumonia-aspiration precaution/ST recommendations esophagram. On level II negative diet * A. fib with RVR-Rate controlled on amiodarone/beta nanette. On anticoagulation for CVA prophylaxis * Acute encephalopathy -clinically resolved, at baseline. * Anxiety continue duloxetine/alprazolam plan * continue cefepime DC vancomycin * discontinue pressors * esophagram * Diet per ST recommendations * Restart home meds * improved short-term prognosis Current Visit: Yes Medical - PN: Qual - Stroke Symptom Onset Unknown: No - VTE Deep Vein Thrombosis/Pulmonary Embolism Present on Admission: No
[2016-07-23] MEDS: LACTOBACILLUS 1 CAPSULE PO SCH (10:49)
[2016-07-23] MEDS: ALPRAZolam 0.5 MG TABLET PO SCH ×2 (10:49→21:32)
[2016-07-23] MEDS: FUROSEMIDE 20 MG TABLET PO SCH ×2 (10:49→21:32)
[2016-07-23] MEDS: DULoxetine 30 MG CAPSULE PO SCH (10:49)
[2016-07-23] MEDS: APIXABAN 2.5 MG TABLET PO SCH ×2 (10:49→21:32)
[2016-07-23] MEDS: AMIODARONE HCL 200 MG TABLET PO SCH (10:51)
[2016-07-23] MEDS: predniSONE 20 MG TABLET PO SCH (10:51)
[2016-07-23] MEDS: SENNOSIDES/DOCUSATE SODIUM 1 TAB TABLET PO SCH (21:32)
[2016-07-23] MEDS: FLUTICASONE PROPIONATE SPRAY.NAS NS SCH (21:33)
[2016-07-24] MEDS: IPRATROPIUM/ALBUTEROL 3 ML AMPUL.NEB NEB SCH ×6 (03:38→23:43)
[2016-07-24] MEDS: 0.9 % SODIUM CHLORIDE 250 ML IV SCH ×2 (04:04→15:50)
[2016-07-24] MEDS: 0.9 % SODIUM CHLORIDE 10 ML SYRINGE IV SCH ×3 (05:54→21:43)
[2016-07-24 06:31] LABS: Mean Cell Volume 103.4 fL (80.0-100.0); Mean Corpuscular HGB Conc 30.4 g/dL (31.0-36.0); Mean Corpuscular Hemoglobin 31.4 pg (26.0-34.0); Platelet Count 88 K/mcL (140-440); RBC 3.02 M/mcL (4.00-5.20); Red Cell Distribution Width 25.5 % (11.5-14.5)
[2016-07-24 06:51] LABS: ALT/SGPT 9 U/l (0-40); Albumin 2.3 gm/dL (3.2-5.2); Albumin/Globulin Ratio 1.1 (1.0-2.3); Alkaline Phosphatase 49 U/L (39-117); Bilirubin,Direct < 0.2 mg/dL (0.0-0.3); Blood Urea Nitrogen 34 mg/dl (8-23); Gamma Glutamyl Transpeptidase 8 U/L (5-36); Magnesium 2.2 mg/dL (1.6-2.5); Phosphorous 3.6 mg/dL (2.7-4.5); Uric Acid 7.9 mg/dL (2.5-8.0)
[2016-07-24] MEDS: PANTOPRAZOLE 40 MG VIAL IV SCH (06:57)
[2016-07-24] MEDS: BUDESONIDE 0.5 MG/2 ML AMPUL.NEB NEB SCH ×2 (07:45→19:30)
[2016-07-24 08:15] LABS: Anisocytosis 2+ (NONE SEEN); Band Neutrophils % 28 % (0-10); Basophilic Stippling FEW (NONE SEEN); Basophils % (Manual) 2 % (0-2); Lymphocytes % 10 % (15-49); Macrocytosis 1+ (NONE SEEN); Monocytes % (Manual) 14 % (1-9); Ovalocytes FEW (NONE SEEN); Platelet Estimate DECREASED (NORMAL); RBC Morphology ABNORM (NORMAL); Segmented Neutrophils % 45 % (38-78); Toxic Granulation FEW (NONE SEEN)
[2016-07-24] MEDS: AMIODARONE HCL 200 MG TABLET PO SCH (09:48)
[2016-07-24] MEDS: APIXABAN 2.5 MG TABLET PO SCH ×2 (09:49→21:42)
[2016-07-24] MEDS: DULoxetine 30 MG CAPSULE PO SCH (09:49)
[2016-07-24] MEDS: MULTIVIT,THER IRON,CA,FA & MIN 1 TABLET PO SCH (09:49)
[2016-07-24] MEDS: FUROSEMIDE 20 MG TABLET PO SCH (09:49)
[2016-07-24] MEDS: LACTOBACILLUS 1 CAPSULE PO SCH (09:49)
[2016-07-24] MEDS: ALPRAZolam 0.5 MG TABLET PO SCH ×2 (09:49→21:42)
[2016-07-24] MEDS: DOCUSATE SODIUM 100 MG CAPSULE PO SCH ×2 (09:49→21:41)
[2016-07-24] MEDS: predniSONE 20 MG TABLET PO SCH (09:49)
[2016-07-24] MEDS: CEFEPIME 2 GM in DEXTROSE 5% IN WATER 50 ML IV SCH ×2 (09:52→21:41)
[2016-07-24] MEDS: FLUTICASONE PROPIONATE SPRAY.NAS NS SCH ×2 (10:45→21:43)
[2016-07-24] MEDS ORDERED: DEXTROSE 5%-1/4NS 1,000 ML IV SCH (12:45)
--- NOTE | 2016-07-24 14:43 | Internal Med Progress Note ---
Medical - PN: Subj Patient information: Note initiated : 07/24/16 at 2:40 pm Service Date, if different from initiated Date: [] Patient: Rochelle Olivas 85 y/o F admitted on 07/21/16 for SOB/Hypoxic Respiratory Failure, Septic Shock, PNA. Chief Complaint: [] Interval history: 07/21- atient admitted with septic shock/bilateral pneumonia. Started on vasopressors. nearly obtunded status. On broad antibiotic coverage/noninvasive ventilation in light of hypoxic respiratory failure. Critically ill. [place] 2 score over 20 indicating high-risk mortality. Family aware. patient is no code and hence intubation on an option. aggressive and close hemodynamic monitoring and management in ICU 07/22-patient off pressors. Improving urine output. Off BiPAP and 5 L oxygen. More alert and responsive. still unable to talk in full sentences. Family at bedside. Discussed clinical findings including chest imaging blood gas hemodynamic status with family and plan of care. Patient remains high-risk mortality given massive aspiration with bilateral pneumonia leading to hypoxia respiratory failure. Continue close ICU monitoring 07/23-patient off BiPAP. On 2 L oxygen. More alert and lucid in unresponsive.. Speech therapy ongoing. Complaint of central chest pain on swallowing. On level to nectar hick diet per ST. Esophagram ordered to rule out stenosis as a cause of recurrent aspiration. No overnight fever chills nausea vomiting. afebrile. white count of 4000. Platelets of 139. DC heparin . Started SCDs. case discussed with patient's son and possible transfer to SNF in 48 hours due to significant clinical improvement. Transfer to medical floor in 24 hours. 3/- patient doing well. No overnight events. Off BiPAP. Persistent dysphagia with central chest pain on swallowing. On nectar thick diet. 2 L oxygen. More alert and lucid. Grandson at bedside. Discussed treatment plan. esophagram Performed due to barium on back order. No overnight telemetry events /fever chills or concerns per staff - Constitutional Vitals: Vital Signs Temp Pulse Resp BP Pulse Ox 98.7 F 86 14 100/57 95 07/24/16 14:00 07/24/16 14:00 07/24/16 14:00 07/24/16 14:00 07/24/16 14:00 Period Temp Pulse Resp BP Sys/[place] Pulse Ox Last 24 Hr 97.1 F-98.7 F 75-100 14-24 85-146/46-75 2-100 Intake and Output 07/24/16 07/24/16 07/24/16 05:59 13:59 21:59 Intake Total 350 / 350 170 / 170 60 / 60 Output Total 900 / 900 960 / 960 1000 / 1000 Balance -550 / -550 -790 / -790 -940 / -940 Intake & Output: Intake & Output 07/24/16 07/24/16 07/24/16 05:59 13:59 21:59 Intake Total 350 / 350 170 / 170 60 / 60 Output Total 900 / 900 960 / 960 1000 / 1000 Balance -550 / -550 -790 / -790 -940 / -940 Intake: IV 350 / 350 50 / 50 Dextrose 5% in Water 50 50 / 50 50 / 50 ml @ 100 mls/hr IV Q12H [facility] with Maxipime 2 gm Rx #:[id number] Oral 120 / 120 60 / 60 Output: Urine Catheter Amount 900 / 900 960 / 960 1000 / 1000 Other: Meal Breakfast Lunch Percent of Meal Consumed 50% 50% General appearance: cooperative, no acute distress Exam: alert oriented Nonlabored breathing, On 2 L oxygen No anxiety No lymphedema or pallor Medical - PN: Obj Da - Labs CBC & Chem 7: 07/24/16 03:53 07/24/16 03:53 Labs: Abnormal Lab Results 07/24/16 07/24/16 07/23/16 03:53 03:53 03:49 WBC 3.5 L RBC 3.02 L Hgb 9.5 L Hct 31.2 L MCV 103.4 H MCHC 30.4 L RDW 25.5 H Plt Count 88 L MPV 12.1 H Band Neutrophils % 28 H Lymphocytes % 10 L Monocytes % (Manual) 14 H Myelocytes % Nucleated RBCs WBC Morphology Abnorm A Reactive Lymphocytes Toxic Granulation Few A RBC Morphology Abnorm A Polychromasia Few A Basophilic Stippling Few A Anisocytosis 2+ A Macrocytosis 1+ A Ovalocytes Few A Sodium 150 H 149 H Chloride 109 H Carbon Dioxide 34 H 31 H Anion Gap 7.0 L BUN 34 H 32 H Creatinine 1.2 H 1.3 H Glucose 134 H Calcium Phosphorus Total Protein 4.4 L 4.9 L Albumin 2.3 L 2.6 L Globulin 2.1 L 07/23/16 07/22/16 07/22/16 03:49 03:34 03:34 WBC 4.2 L RBC 3.38 L 3.29 L Hgb 10.8 L 10.6 L Hct 34.7 L 34.5 L MCV 102.7 H 104.9 H MCHC 30.7 L RDW 26.3 H 26.6 H Plt Count 139 L MPV 12.3 H 11.5 H Band Neutrophils % 13 H 32 H Lymphocytes % 8 L 8 L Monocytes % (Manual) 13 H Myelocytes % 1 H Nucleated RBCs 1 H WBC Morphology Abnorm A Reactive Lymphocytes 4 H Toxic Granulation Few A RBC Morphology Abnorm A Abnorm A Polychromasia Few A 1+ A Basophilic Stippling Anisocytosis 3+ A 3+ A Macrocytosis 1+ A 1+ A Ovalocytes Few A 1+ A Sodium 146 H Chloride Carbon Dioxide 32 H Anion Gap BUN 27 H Creatinine Glucose Calcium 8.2 L Phosphorus 4.6 H Total Protein 5.0 L Albumin 2.8 L Globulin Meds: Medications Acetaminophen (Tylenol) 650 mg PO Q4-6HP PRN PRN Reason: PAIN/FEVER > 101 Albuterol/Ipratropium (Duoneb) 3 ml NEB Q4HRT [facility] Last Admin: 07/24/16 11:43 Dose: 3 ml Alprazolam (Xanax) 0.5 mg PO BID [facility] Last Admin: 07/24/16 09:49 Dose: 0.5 mg Amiodarone HCl (Cordarone) 100 mg PO [facility] Last Admin: 07/24/16 09:48 Dose: 100 mg Budesonide (Pulmicort) 0.5 mg NEB Q12 [facility] Last Admin: 07/24/16 07:45 Dose: 0.5 mg Docusate Sodium (Colace) 100 mg PO BID [facility] Last Admin: 07/24/16 09:49 Dose: 100 mg Duloxetine HCl (Cymbalta) 30 mg PO DAILY [facility] Last Admin: 07/24/16 09:49 Dose: 30 mg Fluticasone Propionate (Flonase) 1 spray NS BID [facility] Last Admin: 07/24/16 10:45 Dose: Not Given Furosemide (Lasix) 20 mg PO DAILY [facility] Cefepime HCl 2 gm/ Dextrose 50 mls @ 100 mls/hr IV Q12H [facility] Last Infusion: 07/24/16 10:45 Dose: Infused Magnesium Sulfate (Magnesium Sulfate) 2 gm in 50 mls @ 50 mls/hr IV UD PRN PRN Reason: MG = or < 1.7 Sodium Chloride (Sodium Chloride 0.9%) 250 mls @ 20 mls/hr IV .[id number] [facility] Last Admin: 07/24/16 04:04 Dose: Not Given Acetaminophen (Ofirmev) 1,000 mg in 100 mls @ 200 mls/hr IV Q6HP PRN PRN Reason: PAIN/FEVER > 101 Dextrose/Sodium Chloride (Dextrose 5%-Sod Chloride 0.2%) 1,000 mls @ 75 mls/hr IV .[id number] [facility] Stop: 07/25/16 15:24 Last Admin: 07/24/16 14:24 Dose: 75 mls/hr Iron Carb/Multivit/Alarm Operator/Folic Acid (Multivitamin W/Minerals) 1 tab PO DAILY [facility] Last Admin: 07/24/16 09:49 Dose: 1 tab Lactobacillus Rhamnosus (Culturelle) 1 cap PO DAILY [facility] Last Admin: 07/24/16 09:49 Dose: 1 cap Magnesium Hydroxide (Milk Of Magnesia) 30 ml PO HSP PRN PRN Reason: Constipation Apixaban 2.5 Mg (Tablet) 2.5 dose PO BID [facility] Last Admin: 07/24/16 09:49 Dose: 2.5 dose Ondansetron HCl (Zofran) 4 mg IV Q4-6HP PRN PRN Reason: Nausea And Vomiting Pantoprazole [facility]odium ([facility]tonix) [facility] Last Admin: 07/24/16 06:57 Dose: 40 mg Potassium Chloride (Klor-Con) 40 meq PO DAILYP PRN PRN Reason: K+ < 3.5 Pred[facility]) [facility] Last Admin: 07/24/16 09:49 Dose: 20 mg Senna/Docusate Sodium (Senna Plus Tablet) 1 tab PO HS [facility] Last Admin: 07/23/16 21:32 Dose: 1 tab Sodium Chloride (Saline Flush) 10 ml IV Q8 [facility] Last Admin: 07/24/16 05:54 Dose: 10 ml Trazodone HCl (Desyrel) 50 mg PO HSP PRN PRN Reason: Insomnia Medical - PN: A/P - Time Spent With Patient Total time spent is greater than 50% in coordination of care (as documented) at patient's floor/unit and/or counseling patient: 25 - 35 minutes (1) Septic shock Status: Acute Assessment and plan: * Bilateral aspiration pneumonia-aspiration precaution. esophagram could not be performed due to barium on back order. On level II nectar thick diet * Septic shock with multiorgan dysfunction including encephalopathy- clinically resolved. Continue antibiotic coverage. * hypovolemic hyponatremia with 2 L free water deficit. IV fluids to quarter normal D5 to replace free water loss * Hypoxic respiratory failure- clinically improved now at baseline. On 2 L oxygen. Transfer to medical for * hypokalemia replace potassium * A. fib with RVR-Rate controlled on amiodarone/beta nanette. On anticoagulation for CVA prophylaxis * Acute encephalopathy -clinically resolved, at baseline. * Anxiety continue duloxetine/alprazolam plan * continue cefepime * transfer to medical floor * D5 quarter normal * replace potassium * Lower Lasix dose * esophagram as outpatient * continue diet per ST recommendations * pre-existing medical condition management home meds * case management to arrange SNF transfer Current Visit: Yes Medical - PN: Qual - Stroke Symptom Onset Unknown: No - VTE Deep Vein Thrombosis/Pulmonary Embolism Present on Admission: No
[2016-07-24] MEDS ORDERED: ACETAMINOPHEN 325 MG TABLET PO PRN (15:31)
[2016-07-24] MEDS ORDERED: POTASSIUM CHLORIDE 20 MEQ PACKET PO PRN (15:31)
[2016-07-24] MEDS ORDERED: MAGNESIUM HYDROXIDE 30 ML ORAL.SUSP PO PRN (15:31)
[2016-07-24] MEDS ORDERED: traZODone HCL 50 MG TABLET PO PRN (15:31)
[2016-07-24] MEDS ORDERED: ACETAMINOPHEN 1,000 MG/100 ML BOTTLE IV PRN (15:31)
[2016-07-24] MEDS ORDERED: ONDANSETRON 4 MG/2 ML VIAL IV PRN (15:31)
[2016-07-24] MEDS ORDERED: MAGNESIUM SULFATE 2 GM/50 ML BAG IV PRN (15:31)
[2016-07-24] MEDS: DEXTROSE 5%-1/4NS 1,000 ML IV SCH (15:49)
[2016-07-24] MEDS ORDERED: SENNOSIDES/DOCUSATE SODIUM 1 TAB TABLET PO SCH (21:00)
[2016-07-25] MEDS: 0.9 % SODIUM CHLORIDE 250 ML IV SCH ×3 (03:19→20:42)
[2016-07-25] MEDS: IPRATROPIUM/ALBUTEROL 3 ML AMPUL.NEB NEB SCH ×6 (03:19→22:25)
[2016-07-25] MEDS: DEXTROSE 5%-1/4NS 1,000 ML IV SCH (04:24)
[2016-07-25 05:33] LABS: ALT/SGPT 9 U/l (0-40); Albumin 2.5 gm/dL (3.2-5.2); Albumin/Globulin Ratio 1.3 (1.0-2.3); Alkaline Phosphatase 47 U/L (39-117); Bilirubin,Direct < 0.2 mg/dL (0.0-0.3); Blood Urea Nitrogen 31 mg/dl (8-23); Gamma Glutamyl Transpeptidase 7 U/L (5-36); Magnesium 2.1 mg/dL (1.6-2.5); Phosphorous 2.5 mg/dL (2.7-4.5); Uric Acid 6.4 mg/dL (2.5-8.0)
[2016-07-25] MEDS ORDERED: POTASSIUM CHLORIDE 40 MEQ in DEXTROSE 5% IN WATER 250 ML IV STA (05:55)
[2016-07-25] MEDS: 0.9 % SODIUM CHLORIDE 10 ML SYRINGE IV SCH ×4 (05:59→22:05)
[2016-07-25] MEDS ORDERED: PANTOPRAZOLE 40 MG VIAL IV SCH (07:30)
[2016-07-25] MEDS ORDERED: predniSONE 20 MG TABLET PO SCH (08:00)
[2016-07-25] MEDS ORDERED: AMIODARONE HCL 200 MG TABLET PO SCH (08:00)
[2016-07-25] MEDS: BUDESONIDE 0.5 MG/2 ML AMPUL.NEB NEB SCH ×2 (08:01→19:01)
[2016-07-25 08:10] LABS: Anisocytosis 2+ (NONE SEEN); Band Neutrophils % 21 % (0-10); Basophils % (Manual) 2 % (0-2); Eosinophils % (Manual) 1 % (0-7); Lymphocytes % 29 % (15-49); Macrocytosis 1+ (NONE SEEN); Monocytes % (Manual) 6 % (1-9); RBC Morphology ABNORMAL (NORMAL); Segmented Neutrophils % 41 % (38-78)
[2016-07-25 08:20] LABS: Mean Cell Volume 102.4 fL (80.0-100.0); Mean Corpuscular HGB Conc 30.6 g/dL (31.0-36.0); Mean Corpuscular Hemoglobin 31.3 pg (26.0-34.0); Platelet Count 50 K/mcL (140-440); Platelet Estimate DECREASED (NORMAL); RBC 2.95 M/mcL (4.00-5.20); Red Cell Distribution Width 24.7 % (11.5-14.5)
[2016-07-25] MEDS ORDERED: POTASSIUM CHLORIDE 20 MEQ/15 ML ML PT SCH (08:45)
[2016-07-25] MEDS ORDERED: LACTOBACILLUS 1 CAPSULE PO SCH (09:00)
[2016-07-25] MEDS ORDERED: DULoxetine 30 MG CAPSULE PO SCH (09:00)
[2016-07-25] MEDS ORDERED: MULTIVIT,THER IRON,CA,FA & MIN 1 TABLET PO SCH (09:00)
[2016-07-25] MEDS ORDERED: FONDAPARINUX SODIUM 2.5 MG/0.5 ML SYRINGE SQ SCH (09:00)
[2016-07-25] MEDS ORDERED: FUROSEMIDE 20 MG TABLET PO SCH ×2 (09:00)
[2016-07-25] MEDS: ALPRAZolam 0.5 MG TABLET PO SCH ×2 (12:00→21:43)
[2016-07-25] MEDS: DOCUSATE SODIUM 100 MG CAPSULE PO SCH ×2 (12:00→21:43)
[2016-07-25] MEDS: CEFEPIME 2 GM in DEXTROSE 5% IN WATER 50 ML IV SCH ×2 (12:01→21:43)
--- NOTE | 2016-07-25 12:12 | Internal Med Progress Note ---
Medical - PN: Subj Patient information: Note initiated : 07/25/16 at 11:56 am Service Date, if different from initiated Date: [] Patient: Rochelle Olivas 85 y/o F admitted on 07/21/16 for SOB/Hypoxic Respiratory Failure, Septic Shock, PNA. Chief Complaint: [] Interval history: 07/21- atient admitted with septic shock/bilateral pneumonia. Started on vasopressors. nearly obtunded status. On broad antibiotic coverage/noninvasive ventilation in light of hypoxic respiratory failure. Critically ill. [place] 2 score over 20 indicating high-risk mortality. Family aware. patient is no code and hence intubation on an option. aggressive and close hemodynamic monitoring and management in ICU 07/22-patient off pressors. Improving urine output. Off BiPAP and 5 L oxygen. More alert and responsive. still unable to talk in full sentences. Family at bedside. Discussed clinical findings including chest imaging blood gas hemodynamic status with family and plan of care. Patient remains high-risk mortality given massive aspiration with bilateral pneumonia leading to hypoxia respiratory failure. Continue close ICU monitoring 07/23-patient off BiPAP. On 2 L oxygen. More alert and lucid in unresponsive.. Speech therapy ongoing. Complaint of central chest pain on swallowing. On level to nectar hick diet per ST. Esophagram ordered to rule out stenosis as a cause of recurrent aspiration. No overnight fever chills nausea vomiting. afebrile. white count of 4000. Platelets of 139. DC heparin . Started SCDs. case discussed with patient's son and possible transfer to SNF in 48 hours due to significant clinical improvement. Transfer to medical floor in 24 hours. 07/24- patient doing well. No overnight events. Off BiPAP. Persistent dysphagia with central chest pain on swallowing. On nectar thick diet. 2 L oxygen. More alert and lucid. Grandson at bedside. Discussed treatment plan. esophagram Performed due to barium on back order. 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 Hit antibodies sent. Heparin discontinued on 07/23, no heparin flushes. Continue anticoagulation. no evidence of thrombosis. Switch to fondaparinux. Dc apixiban. transfer to medical floor . continue aspiration precautions. Possible discharge on Wednesday to SNF with outpatient barium studies/ST eval and treatment and likely GI follow-up for dysphagia/recurrent aspiration. Continue antibiotic coverage. No overnight fever chills nausea vomiting. Patient clinically much better. Tolerating diet and physical therapy. Family including son and grandson at bedside. potassium at 2.9. Lipase 80 mEq potassium - Constitutional Vitals: Vital Signs Temp Pulse Resp BP Pulse Ox 97.8 F 62 20 116/68 97 07/25/16 03:35 07/25/16 08:08 07/25/16 08:08 07/25/16 03:35 07/25/16 08:08 Period Temp Pulse Resp BP Sys/[place] Pulse Ox Last 24 Hr 97.8 F-99.3 F 62-88 14-24 89-146/57-68 94-100 Intake and Output 07/24/16 07/25/16 07/25/16 21:59 05:59 13:59 Intake Total 266 / 266 875 / 875 Output Total 1675 / 1675 875 / 875 Balance -1409 / -1409 0 / 0 Weight 121 lb 12.8 oz Intake & Output: Intake & Output 07/24/16 07/25/16 07/25/16 21:59 05:59 13:59 Intake Total 266 / 266 875 / 875 Output Total 1675 / 1675 875 / 875 Balance -1409 / -1409 0 / 0 Weight 121 lb 12.8 oz Intake: IV 106 / 106 800 / 800 Dextrose 5% in Water 50 50 / 50 ml @ 100 mls/hr IV Q12H [facility] with Maxipime 2 gm Rx #:[id number] Dextrose 5%-Sod Chloride 106 / 106 750 / 750 0.2% 1,000 ml @ 75 mls/hr IV .[id number] [facility] Rx#: [id number] Oral 160 / 160 75 / 75 Output: Urine Catheter Amount 1675 / 1675 875 / 875 Other: Meal Nourishment/Supplement Percent of Meal Consumed 50% General appearance: cooperative, no acute distress Exam: alert oriented nonlabored breathing no telemetry events No anxiety Medical - PN: Obj Da - Labs CBC & Chem 7: 07/25/16 03:40 07/25/16 03:40 Labs: Abnormal Lab Results 07/25/16 07/25/16 07/25/16 09:39 03:40 03:40 WBC 3.8 L RBC 2.95 L Hgb 9.2 L Hct 30.2 L MCV 102.4 H MCHC 30.6 L RDW 24.7 H Plt Count 50 L* MPV 10.8 H Band Neutrophils % 21 H Lymphocytes % Monocytes % (Manual) Myelocytes % WBC Morphology Reactive Lymphocytes Toxic Granulation RBC Morphology Polychromasia Basophilic Stippling Anisocytosis 2+ A Macrocytosis 1+ A Ovalocytes PT 16.6 H INR 1.3 H Sodium 147 H Potassium 2.9 L* Chloride Carbon Dioxide 37 H Anion Gap 4.0 L BUN 31 H Creatinine Glucose 133 H Calcium 8.2 L Phosphorus 2.5 L Total Protein 4.4 L Albumin 2.5 L Globulin 1.9 L 07/24/16 07/24/16 07/23/16 03:53 03:53 03:49 WBC 3.5 L RBC 3.02 L Hgb 9.5 L Hct 31.2 L MCV 103.4 H MCHC 30.4 L RDW 25.5 H Plt Count 88 L MPV 12.1 H Band Neutrophils % 28 H Lymphocytes % 10 L Monocytes % (Manual) 14 H Myelocytes % WBC Morphology Abnorm A Reactive Lymphocytes Toxic Granulation Few A RBC Morphology Abnorm A Polychromasia Few A Basophilic Stippling Few A Anisocytosis 2+ A Macrocytosis 1+ A Ovalocytes Few A PT INR Sodium 150 H 149 H Potassium Chloride 109 H Carbon Dioxide 34 H 31 H Anion Gap 7.0 L BUN 34 H 32 H Creatinine 1.2 H 1.3 H Glucose 134 H Calcium Phosphorus Total Protein 4.4 L 4.9 L Albumin 2.3 L 2.6 L Globulin 2.1 L 07/23/16 03:49 WBC 4.2 L RBC 3.38 L Hgb 10.8 L Hct 34.7 L MCV 102.7 H MCHC RDW 26.3 H Plt Count 139 L MPV 12.3 H Band Neutrophils % 13 H Lymphocytes % 8 L Monocytes % (Manual) 13 H Myelocytes % 1 H WBC Morphology Abnorm A Reactive Lymphocytes 4 H Toxic Granulation Few A RBC Morphology Abnorm A Polychromasia Few A Basophilic Stippling Anisocytosis 3+ A Macrocytosis 1+ A Ovalocytes Few A PT INR Sodium Potassium Chloride Carbon Dioxide Anion Gap BUN Creatinine Glucose Calcium Phosphorus Total Protein Albumin Globulin Meds: Medications Acetaminophen (Tylenol) 650 mg PO Q4-6HP PRN PRN Reason: PAIN/FEVER > 101 Albuterol/Ipratropium (Duoneb) 3 ml NEB Q4HRT [facility] Last Admin: 07/25/16 08:01 Dose: 3 ml Alprazolam (Xanax) 0.5 mg PO BID [facility] Last Admin: 07/24/16 21:42 Dose: 0.5 mg [facility]) [facility] Budesonide (Pulmicort) 0.5 mg NEB Q12 [facility] Last Admin: 07/25/16 08:01 Dose: 0.5 mg Docusate Sodium (Colace) 100 mg PO BID [facility] Last Admin: 07/24/16 21:41 Dose: 100 mg Duloxetine HCl (Cymbalta) 30 mg PO DAILY [facility] Fluticasone Propionate (Flonase) 1 spray NS BID [facility] Last Admin: 07/24/16 21:43 Dose: Not Given Furosemide (Lasix) 20 mg PO DAILY [facility] Cefepime HCl 2 gm/ Dextrose 50 mls @ 100 mls/hr IV Q12H [facility] Last Infusion: 07/24/16 23:29 Dose: Infused Dextrose/Sodium Chloride (Dextrose 5%-Sod Chloride 0.2%) 1,000 mls @ 75 mls/hr IV .[id number] [facility] Stop: 07/25/16 15:24 Last Admin: 07/25/16 04:24 Dose: 75 mls/hr Magnesium Sulfate (Magnesium Sulfate) 2 gm in 50 mls @ 50 mls/hr IV UD PRN PRN Reason: MG = or < 1.7 Sodium Chloride (Sodium Chloride 0.9%) 250 mls @ 20 mls/hr IV .[id number] [facility] Last Admin: 07/25/16 03:19 Dose: Not Given Acetaminophen (Ofirmev) 1,000 mg in 100 mls @ 200 mls/hr IV Q6HP PRN PRN Reason: PAIN/FEVER > 101 Iron Carb/Multivit/[place]/Folic Acid (Multivitamin W/Minerals) 1 tab PO DAILY [facility] Lactobacillus Rhamnosus (Culturelle) 1 cap PO DAILY [facility] Magnesium Hydroxide (Milk Of Magnesia) 30 ml PO HSP PRN PRN Reason: Constipation Apixaban 2.5 Mg (Tablet) 2.5 dose PO BID [facility] Last Admin: 07/24/16 21:42 Dose: 2.5 dose Ondansetron HCl (Zofran) 4 mg IV Q4-6HP PRN PRN Reason: Nausea And Vomiting Pantoprazole Sodium (Protonix) 40 mg IV QAMAC [facility] Potassium Chloride (Klor-Con) 40 meq PO DAILYP PRN PRN Reason: K+ < 3.5 Potassium Chloride (Potassium Chloride) 20 meq PT BIDCC [facility] Prednisone (Prednisone) 20 mg PO QAMCC [facility] Senna/Docusate Sodium (Senna Plus Tablet) 1 tab PO HS [facility] Last Admin: 07/24/16 21:42 Dose: 1 tab Sodium Chloride (Saline Flush) 10 ml IV Q8 [facility] Last Admin: 07/25/16 05:59 Dose: 10 ml Trazodone HCl (Desyrel) 50 mg PO HSP PRN PRN Reason: Insomnia Medical - PN: A/P - Time Spent With Patient Total time spent is greater than 50% in coordination of care (as documented) at patient's floor/unit and/or counseling patient: 25 - 35 minutes (1) Septic shock Status: Acute Assessment and plan: * Bilateral aspiration pneumonia-aspiration precaution. esophagram as outpatient. continue level II nectar thick diet per ST * Thrombocytopenia-rule out HIT,sent hit antibody. Start empiric treatment on fondaparinux in light of 4T score of 4. DC all heparinized. Hold apixiban. 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 * Hypovolemic hypernatremia - Improving with free water replacement. Sodium 147 * Hypokalemia at 2.9.replace 80 mEq potassium. * Septic shock with multiorgan dysfunction including encephalopathy- clinically resolved. * A. fib -Rate controlled on amiodarone/beta nanette. 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
[2016-07-25] MEDS: FLUTICASONE PROPIONATE SPRAY.NAS NS SCH ×2 (13:22→21:43)
[2016-07-25] MEDS: FONDAPARINUX SODIUM 2.5 MG/0.5 ML SYRINGE SQ SCH (13:26)
[2016-07-25] MEDS: APIXABAN 2.5 MG TABLET PO SCH (13:30)
[2016-07-25] MEDS ORDERED: POTASSIUM CHLORIDE 20 MEQ PACKET PO PRN (13:32)
[2016-07-25] MEDS ORDERED: ACETAMINOPHEN 1,000 MG/100 ML BOTTLE IV PRN (13:32)
[2016-07-25] MEDS ORDERED: ONDANSETRON 4 MG/2 ML VIAL IV PRN (13:32)
[2016-07-25] MEDS ORDERED: ACETAMINOPHEN 325 MG TABLET PO PRN (13:32)
[2016-07-25] MEDS ORDERED: DEXTROSE 5%-1/4NS 1,000 ML IV SCH (13:32)
[2016-07-25] MEDS ORDERED: MAGNESIUM SULFATE 2 GM/50 ML BAG IV PRN (13:32)
[2016-07-25] MEDS: POTASSIUM CHLORIDE 20 MEQ/15 ML ML PO SCH (17:53)
[2016-07-25] MEDS ORDERED: MAGNESIUM HYDROXIDE 30 ML ORAL.SUSP PO PRN (21:00)
[2016-07-25] MEDS ORDERED: traZODone HCL 50 MG TABLET PO PRN (21:00)
[2016-07-25] MEDS: SENNOSIDES/DOCUSATE SODIUM 1 TAB TABLET PO SCH (21:43)
[2016-07-26] MEDS: 0.9 % SODIUM CHLORIDE 250 ML IV SCH ×2 (02:38→14:08)
[2016-07-26] MEDS: IPRATROPIUM/ALBUTEROL 3 ML AMPUL.NEB NEB SCH ×6 (03:58→23:05)
[2016-07-26] MEDS: 0.9 % SODIUM CHLORIDE 10 ML SYRINGE IV SCH ×3 (05:25→21:40)
[2016-07-26 05:41] LABS: ALT/SGPT 10 U/l (0-40); Albumin 2.4 gm/dL (3.2-5.2); Albumin/Globulin Ratio 1.3 (1.0-2.3); Alkaline Phosphatase 44 U/L (39-117); Bilirubin,Direct < 0.2 mg/dL (0.0-0.3); Blood Urea Nitrogen 27 mg/dl (8-23); Gamma Glutamyl Transpeptidase 7 U/L (5-36); Magnesium 2.1 mg/dL (1.6-2.5); Phosphorous 1.9 mg/dL (2.7-4.5); Uric Acid 4.8 mg/dL (2.5-8.0)
[2016-07-26 06:32] LABS: Mean Cell Volume 100.4 fL (80.0-100.0); Mean Corpuscular Hemoglobin 31.1 pg (26.0-34.0); Platelet Count 44 K/mcL (140-440); RBC 2.84 M/mcL (4.00-5.20); Red Cell Distribution Width 25.2 % (11.5-14.5)
[2016-07-26 06:39] LABS: Anisocytosis 2+ (NONE SEEN); Band Neutrophils % 8 % (0-10); Basophilic Stippling FEW (NONE SEEN); Eosinophils % (Manual) 5 % (0-7); Lymphocytes % 18 % (15-49); Macrocytosis 1+ (NONE SEEN); Monocytes % (Manual) 14 % (1-9); Ovalocytes FEW (NONE SEEN); Platelet Estimate MK DECR (NORMAL); RBC Morphology ABNORM (NORMAL); Segmented Neutrophils % 53 % (38-78)
[2016-07-26] MEDS: predniSONE 20 MG TABLET PO SCH (08:11)
[2016-07-26] MEDS: AMIODARONE HCL 200 MG TABLET PO SCH (08:11)
[2016-07-26] MEDS: POTASSIUM CHLORIDE 20 MEQ/15 ML ML PO SCH ×2 (08:11→18:11)
[2016-07-26] MEDS: PANTOPRAZOLE 40 MG VIAL IV SCH (08:13)
[2016-07-26] MEDS: BUDESONIDE 0.5 MG/2 ML AMPUL.NEB NEB SCH ×2 (08:29→19:44)
--- NOTE | 2016-07-26 09:31 | Internal Med Progress Note ---
Medical - PN: Subj Patient information: Note initiated : 07/26/16 at 9:28 am Service Date, if different from initiated Date: [] Patient: Rochelle Olivas 85 y/o F admitted on 07/21/16 for SOB/Hypoxic Respiratory Failure, Septic Shock, PNA. Chief Complaint: [] Interval history: 07/21- atient admitted with septic shock/bilateral pneumonia. Started on vasopressors. nearly obtunded status. On broad antibiotic coverage/noninvasive ventilation in light of hypoxic respiratory failure. Critically ill. [place] 2 score over 20 indicating high-risk mortality. Family aware. patient is no code and hence intubation on an option. aggressive and close hemodynamic monitoring and management in ICU 07/22-patient off pressors. Improving urine output. Off BiPAP and 5 L oxygen. More alert and responsive. still unable to talk in full sentences. Family at bedside. Discussed clinical findings including chest imaging blood gas hemodynamic status with family and plan of care. Patient remains high-risk mortality given massive aspiration with bilateral pneumonia leading to hypoxia respiratory failure. Continue close ICU monitoring 07/23-patient off BiPAP. On 2 L oxygen. More alert and lucid in unresponsive.. Speech therapy ongoing. Complaint of central chest pain on swallowing. On level to nectar hick diet per ST. Esophagram ordered to rule out stenosis as a cause of recurrent aspiration. No overnight fever chills nausea vomiting. afebrile. white count of 4000. Platelets of 139. DC heparin . Started SCDs. case discussed with patient's son and possible transfer to SNF in 48 hours due to significant clinical improvement. Transfer to medical floor in 24 hours. 07/24- patient doing well. No overnight events. Off BiPAP. Persistent dysphagia with central chest pain on swallowing. On nectar thick diet. 2 L oxygen. More alert and lucid. Grandson at bedside. Discussed treatment plan. esophagram Performed due to barium on back order. 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 Hit antibodies sent. Heparin discontinued on 07/23, no heparin flushes. Continue anticoagulation. no evidence of thrombosis. Switch to fondaparinux. Dc apixiban. transfer to medical floor . continue aspiration precautions. Possible discharge on Wednesday to SNF with outpatient barium studies/ST eval and treatment and likely GI follow-up for dysphagia/recurrent aspiration. Continue antibiotic coverage. No overnight fever chills nausea vomiting. Patient clinically much better. Tolerating diet and physical therapy. Family including son and grandson at bedside. potassium at 2.9. Lipase 80 mEq potassium 3/5-platelets at 44. 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 Heparin discontinued due to concerns of HIT. continue monitoring. No signs of bleeding or thrombosis. On fondaparinux. Apixiban temporarily held. continue pulmonary toilet/oxygen to maintain sats around 88. Continue bronchodilators. de-escalate antibiotics and discharge. Anticipate discharge to SNF in a.m.. - Constitutional Vitals: Vital Signs Temp Pulse Resp BP Pulse Ox 97.8 F 90 16 111/51 94 07/26/16 08:10 07/26/16 08:31 07/26/16 08:31 07/26/16 08:10 07/26/16 08:10 Period Temp Pulse Resp BP Sys/[place] Pulse Ox Last 24 Hr 97.0 F-98.7 F 64-95 16-20 90-112/51-65 90-97 Intake and Output 07/25/16 07/26/16 07/26/16 21:59 05:59 13:59 Intake Total 200 / 200 120 / 120 Output Total 1000 / 1000 1800 / 1800 Balance -800 / -800 -1680 / -1680 Weight 120 lb 12.8 oz Intake & Output: Intake & Output 07/25/16 07/26/16 07/26/16 21:59 05:59 13:59 Intake Total 200 / 200 120 / 120 Output Total 1000 / 1000 1800 / 1800 Balance -800 / -800 -1680 / -1680 Weight 120 lb 12.8 oz Intake: Oral 200 / 200 120 / 120 Output: Urine Catheter Amount 1000 / 1000 1800 / 1800 Other: Meal Dinner Percent of Meal Consumed 75% Feeding Ability Total Assistance General appearance: cooperative, no acute distress Exam: lert oriented nonlabored breathing tolerating diet No anxiety Nondistended abdomen no pallor or lymphedema Medical - PN: Obj Da - Labs CBC & Chem 7: 07/26/16 03:50 07/26/16 03:50 Labs: Abnormal Lab Results 07/26/16 07/26/16 07/25/16 03:50 03:50 09:39 WBC 3.5 L RBC 2.84 L Hgb 8.8 L Hct 28.5 L MCV 100.4 H MCHC RDW 25.2 H Plt Count 44 L* MPV 10.9 H Band Neutrophils % Lymphocytes % Monocytes % (Manual) 14 H WBC Morphology Toxic Granulation Platelet Estimate Mk decr A RBC Morphology Abnorm A Polychromasia Basophilic Stippling Few A Anisocytosis 2+ A Macrocytosis 1+ A Ovalocytes Few A PT 16.6 H INR 1.3 H Sodium 146 H Potassium 3.0 L Chloride Carbon Dioxide 39 H Anion Gap 3.0 L BUN 27 H Creatinine Glucose Calcium 8.1 L Phosphorus 1.9 L Total Protein 4.3 L Albumin 2.4 L Globulin 1.9 L 07/25/16 07/25/16 07/24/16 03:40 03:40 03:53 WBC 3.8 L RBC 2.95 L Hgb 9.2 L Hct 30.2 L MCV 102.4 H MCHC 30.6 L RDW 24.7 H Plt Count 50 L* MPV 10.8 H Band Neutrophils % 21 H Lymphocytes % Monocytes % (Manual) WBC Morphology Toxic Granulation Platelet Estimate RBC Morphology Polychromasia Basophilic Stippling Anisocytosis 2+ A Macrocytosis 1+ A Ovalocytes PT INR Sodium 147 H 150 H Potassium 2.9 L* Chloride 109 H Carbon Dioxide 37 H 34 H Anion Gap 4.0 L 7.0 L BUN 31 H 34 H Creatinine 1.2 H Glucose 133 H 134 H Calcium 8.2 L Phosphorus 2.5 L Total Protein 4.4 L 4.4 L Albumin 2.5 L 2.3 L Globulin 1.9 L 2.1 L 07/24/16 03:53 WBC 3.5 L RBC 3.02 L Hgb 9.5 L Hct 31.2 L MCV 103.4 H MCHC 30.4 L RDW 25.5 H Plt Count 88 L MPV 12.1 H Band Neutrophils % 28 H Lymphocytes % 10 L Monocytes % (Manual) 14 H WBC Morphology Abnorm A Toxic Granulation Few A Platelet Estimate RBC Morphology Abnorm A Polychromasia Few A Basophilic Stippling Few A Anisocytosis 2+ A Macrocytosis 1+ A Ovalocytes Few A PT INR Sodium Potassium Chloride Carbon Dioxide Anion Gap BUN Creatinine Glucose Calcium Phosphorus Total Protein Albumin Globulin Meds: Medications Acetaminophen (Tylenol) 650 mg PO Q4-6HP PRN PRN Reason: PAIN/FEVER > 101 Albuterol/Ipratropium (Duoneb) 3 ml NEB Q4HRT [facility] Last Admin: 07/26/16 08:30 Dose: 3 ml Alprazolam (Xanax) 0.5 mg PO BID [facility] Last Admin: 07/25/16 21:43 Dose: 0.5 mg Amiodarone HCl (Cordarone) 100 mg PO QAC [facility] Last Admin: 07/26/16 08:11 Dose: 100 mg Budesonide (Pulmicort) 0.5 mg NEB Q12 [facility] Last Admin: 07/26/16 08:29 Dose: 0.5 mg Docusate Sodium (Colace) 100 mg PO BID [facility] Last Admin: 07/25/16 21:43 Dose: Not Given Duloxetine HCl (Cymbalta) 30 mg PO DAILY [facility] Fluticasone Propionate (Flonase) 1 spray NS BID [facility] Last Admin: 07/25/16 21:43 Dose: Not Given Fondaparinux (Arixtra) 2.5 mg SQ DAILY [facility] Last Admin: 07/25/16 13:26 Dose: 2.5 mg Furosemide (Lasix) 20 mg PO DAILY [facility] Cefepime HCl 2 gm/ Dextrose 50 mls @ 100 mls/hr IV Q12H [facility] Last Admin: 07/25/16 21:43 Dose: 100 mls/hr Magnesium Sulfate (Magnesium Sulfate) 2 gm in 50 mls @ 50 mls/hr IV UD PRN PRN Reason: MG = or < 1.7 Sodium Chloride (Sodium Chloride 0.9%) 250 mls @ 20 mls/hr IV .[id number] [facility] Last Admin: 07/26/16 02:38 Dose: Not Given Acetaminophen (Ofirmev) 1,000 mg in 100 mls @ 200 mls/hr IV Q6HP PRN PRN Reason: PAIN/FEVER > 101 Iron Carb/Multivit/[place]/Folic Acid (Multivitamin W/Minerals) 1 tab PO DAILY [facility] Lactobacillus Rhamnosus (Culturelle) 1 cap PO DAILY [facility] Magnesium Hydroxide (Milk Of Magnesia) 30 ml PO HSP PRN PRN Reason: Constipation Ondansetron HCl (Zofran) 4 mg IV Q4-6HP PRN PRN Reason: Nausea And Vomiting Pantoprazole Sodium (Protonix) 40 mg IV QAMAC [facility] Last Admin: 07/26/16 08:13 Dose: 40 mg Potassium Chloride (Klor-Con) 40 meq PO DAILYP PRN PRN Reason: K+ < 3.5 Potassium Chloride (Potassium Chloride) 20 meq PO BIDCC [facility] Last Admin: 07/26/16 08:11 Dose: 20 meq Potassium/Phosphorus/Sodium (Neutra Phos) 2 packet PO BID [facility] Prednisone (Prednisone) 20 mg PO QAMCC [facility] Last Admin: 07/26/16 08:11 Dose: 20 mg Senna/Docusate Sodium (Senna Plus Tablet) 1 tab PO HS [facility] Last Admin: 07/25/16 21:43 Dose: Not Given Sodium Chloride (Saline Flush) 10 ml IV Q8 [facility] Last Admin: 07/26/16 05:25 Dose: Not Given Trazodone HCl (Desyrel) 50 mg PO HSP PRN PRN Reason: Insomnia Medical - PN: A/P - Time Spent With Patient Total time spent is greater than 50% in coordination of care (as documented) at patient's floor/unit and/or counseling patient: 15 - 24 minutes (1) Septic shock Status: Acute Assessment and plan: * Bilateral aspiration pneumonia-On aspiration precaution. schedule esophagram as outpatient. continue level II nectar thick diet per ST. antibiotic coverage * Thrombocytopenia-PBS likely myelodysplastic syndrome however in light of recent heparin use Await HIT antibody. continue empiric treatment on fondaparinux in light of 4T score of 4. DC all heparinized. Hold apixiban(no data for use in HIT). * Hypovolemic hypernatremia - Improving with free water replacement. Sodium 146 * Hypokalemia at 3. continue potassium replacement * Septic shock with multiorgan dysfunction including encephalopathy- clinically resolved. * A. fib -Rate controlled on amiodarone/beta nanette. 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 Current Visit: Yes Medical - PN: Qual - Stroke Symptom Onset Unknown: No - VTE Deep Vein Thrombosis/Pulmonary Embolism Present on Admission: No
[2016-07-26] MEDS: CEFEPIME 2 GM in DEXTROSE 5% IN WATER 50 ML IV SCH ×2 (09:49→20:38)
[2016-07-26] MEDS: DULoxetine 30 MG CAPSULE PO SCH (09:49)
[2016-07-26] MEDS: ALPRAZolam 0.5 MG TABLET PO SCH ×2 (09:50→20:30)
[2016-07-26] MEDS: MULTIVIT,THER IRON,CA,FA & MIN 1 TABLET PO SCH (09:50)
[2016-07-26] MEDS: FONDAPARINUX SODIUM 2.5 MG/0.5 ML SYRINGE SQ SCH (09:50)
[2016-07-26] MEDS: DOCUSATE SODIUM 100 MG CAPSULE PO SCH ×2 (09:50→20:30)
[2016-07-26] MEDS: FLUTICASONE PROPIONATE SPRAY.NAS NS SCH ×2 (09:51→20:33)
[2016-07-26] MEDS: NEUTRA PHOS 1 PACKET PO SCH ×2 (09:52→20:30)
[2016-07-26] MEDS: LACTOBACILLUS 1 CAPSULE PO SCH (10:03)
[2016-07-26] MEDS: FUROSEMIDE 20 MG TABLET PO SCH (10:03)
[2016-07-26] MEDS: SENNOSIDES/DOCUSATE SODIUM 1 TAB TABLET PO SCH (20:33)
[2016-07-27] MEDS: IPRATROPIUM/ALBUTEROL 3 ML AMPUL.NEB NEB SCH ×6 (03:40→22:07)
[2016-07-27] MEDS: 0.9 % SODIUM CHLORIDE 250 ML IV SCH ×2 (03:40→16:54)
[2016-07-27] MEDS: 0.9 % SODIUM CHLORIDE 10 ML SYRINGE IV SCH ×3 (06:00→22:51)
[2016-07-27] MEDS: BUDESONIDE 0.5 MG/2 ML AMPUL.NEB NEB SCH ×2 (07:24→22:07)
[2016-07-27] MEDS: predniSONE 20 MG TABLET PO SCH (08:49)
[2016-07-27] MEDS: POTASSIUM CHLORIDE 20 MEQ/15 ML ML PO SCH ×2 (08:49→18:17)
[2016-07-27] MEDS: AMIODARONE HCL 200 MG TABLET PO SCH (08:50)
[2016-07-27] MEDS: PANTOPRAZOLE 40 MG VIAL IV SCH (08:50)
[2016-07-27 09:09] LABS: Mean Cell Volume 101.4 fL (80.0-100.0); Mean Corpuscular HGB Conc 31.1 g/dL (31.0-36.0); Mean Corpuscular Hemoglobin 31.6 pg (26.0-34.0); Platelet Count 43 K/mcL (140-440); RBC 2.95 M/mcL (4.00-5.20); Red Cell Distribution Width 25.2 % (11.5-14.5)
[2016-07-27 09:29] LABS: ALT/SGPT 18 U/l (0-40); Albumin 2.5 gm/dL (3.2-5.2); Albumin/Globulin Ratio 1.3 (1.0-2.3); Alkaline Phosphatase 49 U/L (39-117); Bilirubin,Direct 0.2 mg/dL (0.0-0.3); Blood Urea Nitrogen 26 mg/dl (8-23); Gamma Glutamyl Transpeptidase 9 U/L (5-36); Magnesium 2.1 mg/dL (1.6-2.5); Uric Acid 3.8 mg/dL (2.5-8.0)
[2016-07-27] MEDS: CEFEPIME 2 GM in DEXTROSE 5% IN WATER 50 ML IV SCH ×2 (09:57→21:54)
[2016-07-27] MEDS: NEUTRA PHOS 1 PACKET PO SCH ×2 (09:59→21:57)
[2016-07-27] MEDS: FUROSEMIDE 20 MG TABLET PO SCH (10:00)
[2016-07-27] MEDS: DOCUSATE SODIUM 100 MG CAPSULE PO SCH ×2 (10:00→21:55)
[2016-07-27] MEDS: FONDAPARINUX SODIUM 2.5 MG/0.5 ML SYRINGE SQ SCH (10:01)
[2016-07-27] MEDS: LACTOBACILLUS 1 CAPSULE PO SCH (10:01)
[2016-07-27] MEDS: ALPRAZolam 0.5 MG TABLET PO SCH ×2 (10:01→21:55)
[2016-07-27] MEDS: DULoxetine 30 MG CAPSULE PO SCH (10:01)
[2016-07-27] MEDS: MULTIVIT,THER IRON,CA,FA & MIN 1 TABLET PO SCH (10:01)
[2016-07-27 10:39] LABS: Anisocytosis 2+ (NONE SEEN); Band Neutrophils % 5 % (0-10); Basophils % (Manual) 1 % (0-2); Eosinophils % (Manual) 1 % (0-7); Lymphocytes % 24 % (15-49); Macrocytosis 1+ (NONE SEEN); Monocytes % (Manual) 9 % (1-9); Platelet Estimate MK DECR (NORMAL); RBC Morphology ABNORM (NORMAL); Segmented Neutrophils % 60 % (38-78)
[2016-07-27] MEDS: FLUTICASONE PROPIONATE SPRAY.NAS NS SCH ×2 (11:19→21:56)
[2016-07-27] MEDS ORDERED: FLEETS ADULT ENEMA PR PRN (13:11)
[2016-07-27] MEDS ORDERED: BISACODYL 10 MG SUPP.RECT PR PRN (13:11)
--- NOTE | 2016-07-27 14:08 | Internal Med Progress Note ---
Medical - PN: Subj Patient information: Note initiated : 07/27/16 at 2:04 pm Service Date, if different from initiated Date: [] Patient: Rochelle Olivas 85 y/o F admitted on 07/21/16 for SOB/Hypoxic Respiratory Failure, Septic Shock, PNA. Chief Complaint: [] Interval history: 07/21- atient admitted with septic shock/bilateral pneumonia. Started on vasopressors. nearly obtunded status. On broad antibiotic coverage/noninvasive ventilation in light of hypoxic respiratory failure. Critically ill. [place] 2 score over 20 indicating high-risk mortality. Family aware. patient is no code and hence intubation on an option. aggressive and close hemodynamic monitoring and management in ICU 07/22-patient off pressors. Improving urine output. Off BiPAP and 5 L oxygen. More alert and responsive. still unable to talk in full sentences. Family at bedside. Discussed clinical findings including chest imaging blood gas hemodynamic status with family and plan of care. Patient remains high-risk mortality given massive aspiration with bilateral pneumonia leading to hypoxia respiratory failure. Continue close ICU monitoring 07/23-patient off BiPAP. On 2 L oxygen. More alert and lucid in unresponsive.. Speech therapy ongoing. Complaint of central chest pain on swallowing. On level to nectar hick diet per ST. Esophagram ordered to rule out stenosis as a cause of recurrent aspiration. No overnight fever chills nausea vomiting. afebrile. white count of 4000. Platelets of 139. DC heparin . Started SCDs. case discussed with patient's son and possible transfer to SNF in 48 hours due to significant clinical improvement. Transfer to medical floor in 24 hours. 07/24- patient doing well. No overnight events. Off BiPAP. Persistent dysphagia with central chest pain on swallowing. On nectar thick diet. 2 L oxygen. More alert and lucid. Grandson at bedside. Discussed treatment plan. esophagram Performed due to barium on back order. 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 Hit antibodies sent. Heparin discontinued on 07/23, no heparin flushes. Continue anticoagulation. no evidence of thrombosis. Switch to fondaparinux. Dc apixiban. transfer to medical floor . continue aspiration precautions. Possible discharge on Wednesday to SNF with outpatient barium studies/ST eval and treatment and likely GI follow-up for dysphagia/recurrent aspiration. Continue antibiotic coverage. No overnight fever chills nausea vomiting. Patient clinically much better. Tolerating diet and physical therapy. Family including son and grandson at bedside. potassium at 2.9. Lipase 80 mEq potassium 3/5-platelets at 44. 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 Heparin discontinued due to concerns of HIT. continue monitoring. No signs of bleeding or thrombosis. On fondaparinux. Apixiban temporarily held. continue pulmonary toilet/oxygen to maintain sats around 88. Continue bronchodilators. de-escalate antibiotics and discharge. Anticipate discharge to SNF in a.m. 07/27 Patient seen examined, no acute overnight events, no new complaints. lab reiviewed with the patient, the patients platlets continue to drop, HIT workup pending. The patient has h/o MDS and was supposed to be on revlimid, this medication was stopped by error on admission. I spoke with the patients oncologist and confirmed the plan. He also noted that its possible that the patients platlets have dropped due to infection given this happens in patients with MDS, but given the clinical suspicion of HIT, will hold of on eliquis and continue arixtra. The patient will need to have near normal platlets before discharge planning can be done given risk of thrombotic event as per Hematology / Oncology. Hb is stable for now, conside epogen if needed. The patient still reports significant pain during swallowing. Pertinent ROS: Denies headache, dizziness Denies chest pain, palpitations Denies cough or shortness of breath Denies abdominal pain, nausea or vomiting. - Constitutional Vitals: Vital Signs Temp Pulse Resp BP Pulse Ox 97.6 F 81 18 114/63 92 07/27/16 12:00 07/27/16 12:00 07/27/16 12:00 07/27/16 12:00 07/27/16 12:00 Period Temp Pulse Resp BP Sys/[place] Pulse Ox Last 24 Hr 96.4 F-98.7 F 71-94 16-24 94-149/52-77 91-97 Intake and Output 07/27/16 07/27/16 07/27/16 05:59 13:59 21:59 Intake Total 570 / 570 Output Total 1100 / 1100 550 / 550 Balance -530 / -530 -550 / -550 Intake & Output: Intake & Output 07/27/16 07/27/16 07/27/16 05:59 13:59 21:59 Intake Total 570 / 570 Output Total 1100 / 1100 550 / 550 Balance -530 / -530 -550 / -550 Intake: IV 250 / 250 Sodium Chloride 0.9% 250 250 / 250 ml @ 20 mls/hr IV . [id number] [facility] Rx#:[id number] Oral 320 / 320 Output: Urine Catheter Amount 800 / 800 550 / 550 Void Amount 300 / 300 Exam: Constitutional; Afebrile, cooperative, alert, not in distress. Eyes- No icterus, Pupils equal, reactive, No periorbital swelling Ears- Ext ear normal, hearing normal to conversation. Neck- Midline trachea, supple Respiratory system: Air Entry equal on both sides, No crackles or wheezing, no rhonchi. CVS- Rate normal rhythm irregular , S1,S2 heard, no gallop, no rub. Abdomen- Soft nontender abdomen, no organomegaly, no tenderness, no guarding or rigidity, FEED BLENDER- AOOx3, moving all extremities, no focal deficit noted. Medical - PN: Obj Da - Labs CBC & Chem 7: 07/27/16 08:03 07/27/16 08:03 Labs: Abnormal Lab Results 07/27/16 07/27/16 07/26/16 08:03 08:03 03:50 WBC 3.9 L RBC 2.95 L Hgb 9.3 L Hct 29.9 L MCV 101.4 H MCHC RDW 25.2 H Plt Count 43 L* MPV 10.7 H Band Neutrophils % Monocytes % (Manual) Platelet Estimate Mk decr A RBC Morphology Abnorm A Basophilic Stippling Anisocytosis 2+ A Macrocytosis 1+ A Ovalocytes PT INR Sodium 146 H Potassium 3.2 L 3.0 L Carbon Dioxide 41 H* 39 H Anion Gap 3.0 L 3.0 L BUN 26 H 27 H Glucose Calcium 8.0 L 8.1 L Phosphorus 2.0 L 1.9 L Total Protein 4.4 L 4.3 L Albumin 2.5 L 2.4 L Globulin 1.9 L 1.9 L 07/26/16 07/25/16 07/25/16 03:50 09:39 03:40 WBC 3.5 L RBC 2.84 L Hgb 8.8 L Hct 28.5 L MCV 100.4 H MCHC RDW 25.2 H Plt Count 44 L* MPV 10.9 H Band Neutrophils % Monocytes % (Manual) 14 H Platelet Estimate Mk decr A RBC Morphology Abnorm A Basophilic Stippling Few A Anisocytosis 2+ A Macrocytosis 1+ A Ovalocytes Few A PT 16.6 H INR 1.3 H Sodium 147 H Potassium 2.9 L* Carbon Dioxide 37 H Anion Gap 4.0 L BUN 31 H Glucose 133 H Calcium 8.2 L Phosphorus 2.5 L Total Protein 4.4 L Albumin 2.5 L Globulin 1.9 L 07/25/16 03:40 WBC 3.8 L RBC 2.95 L Hgb 9.2 L Hct 30.2 L MCV 102.4 H MCHC 30.6 L RDW 24.7 H Plt Count 50 L* MPV 10.8 H Band Neutrophils % 21 H Monocytes % (Manual) Platelet Estimate RBC Morphology Basophilic Stippling Anisocytosis 2+ A Macrocytosis 1+ A Ovalocytes PT INR Sodium Potassium Carbon Dioxide Anion Gap BUN Glucose Calcium Phosphorus Total Protein Albumin Globulin Meds: Medications Acetaminophen (Tylenol) 650 mg PO Q4-6HP PRN PRN Reason: PAIN/FEVER > 101 Albuterol/Ipratropium (Duoneb) 3 ml NEB Q4HRT [facility] Last Admin: 07/27/16 11:37 Dose: 3 ml Alprazolam (Xanax) 0.5 mg PO BID [facility] Last Admin: 07/27/16 10:01 Dose: 0.5 mg Amiodarone [facility] (Cord[facility]) [facility] Last Admin: 07/27/16 08:50 Dose: 100 mg Bisacodyl (Dulcolax) [address] Q2-3DAYS PRN PRN Reason: Constipation Budesonide (Pulmicort) 0.5 mg NEB Q12 [facility] Last Admin: 07/27/16 07:24 Dose: 0.5 mg Docusate Sodium (Colace) 100 mg PO BID [facility] Last Admin: 07/27/16 10:00 Dose: 100 mg Duloxetine HCl (Cymbalta) 30 mg PO DAILY [facility] Last Admin: 07/27/16 10:01 Dose: 30 mg Fluticasone Propionate (Flonase) 1 spray NS BID [facility] Last Admin: 07/27/16 11:19 Dose: Not Given Fondaparinux (Arixtra) 2.5 mg SQ DAILY [facility] Last Admin: 07/27/16 10:01 Dose: 2.5 mg Furosemide (Lasix) 20 mg PO DAILY [facility] Last Admin: 07/27/16 10:00 Dose: 20 mg Cefepime HCl 2 gm/ Dextrose 50 mls @ 100 mls/hr IV Q12H [facility] Last Admin: 07/27/16 09:57 Dose: 100 mls/hr Magnesium Sulfate (Magnesium Sulfate) 2 gm in 50 mls @ 50 mls/hr IV UD PRN PRN Reason: MG = or < 1.7 Sodium Chloride (Sodium Chloride 0.9%) 250 mls @ 20 mls/hr IV .[id number] [facility] Last Admin: 07/27/16 03:40 Dose: 20 mls/hr Acetaminophen (Ofirmev) 1,000 mg in 100 mls @ 200 mls/hr IV Q6HP PRN PRN Reason: PAIN/FEVER > 101 Iron Carb/Multivit/[place]/Folic Acid (Multivitamin W/Minerals) 1 tab PO DAILY [facility] Last Admin: 07/27/16 10:01 Dose: 1 tab Lactobacillus Rhamnosus (Culturelle) 1 cap PO DAILY [facility] Last Admin: 07/27/16 10:01 Dose: 1 cap Magnesium Hydroxide (Milk Of Magnesia) 30 ml PO HSP PRN PRN Reason: Constipation Lenalidomide 2.5 Mg ((Revlimid) Capsule) 1 dose PO DAILY [facility] Ondansetron HCl (Zofran) 4 mg IV Q4-6HP PRN PRN Reason: Nausea And Vomiting Pantoprazole Sodium (Protonix) 40 mg IV QAMAC [facility] Last Admin: 07/27/16 08:50 Dose: 40 mg Potassium Chloride (Klor-Con) 40 meq PO DAILYP PRN PRN Reason: K+ < 3.5 Potassium Chloride (Potassium Chloride) 20 meq PO BIDCC [facility] Last Admin: 07/27/16 08:49 Dose: 20 meq Potassium/Phosphorus/Sodium (Neutra Phos) 2 packet PO BID [facility] Last Admin: 07/27/16 09:59 Dose: 2 packet Prednisone (Prednisone) 20 mg PO QAC [facility] Last Admin: 07/27/16 08:49 Dose: 20 mg Senna/Docusate Sodium (Senna Plus Tablet) 1 tab PO HS [facility] Last Admin: 07/26/16 20:33 Dose: Not Given Sodium Biphosphate/Sodium Phosphate (Fleets Adult) [address] Q3-4DAYS PRN PRN Reason: Constipation Sodium Chloride (Saline Flush) 10 ml IV Q8 [facility] Last Admin: 07/27/16 06:00 Dose: 10 ml Trazodone HCl (Desyrel) 50 mg PO HSP PRN PRN Reason: Insomnia Medical - PN: A/P - Time Spent With Patient Total time spent is greater than 50% in coordination of care (as documented) at patient's floor/unit and/or counseling patient: - Narrative A/P Narrative: Pneumonia/ HCAP - On broad spectrum antibiotics continue same, microbiology negative so far. On cefepime continue same. Thrombocytopenia, Heparin Induced Thrombocytopenia- Hold heparin for now, on arixtra, workup pending. Discussed case with Hematology, no new recommendations from Dr Fernández, besides to continue arixtra and await platlets to normalize before discharge, ok to switch to eliquis after platelets normalize. Myleodysplastic syndrome- Resume revlimid. 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 Dyphagia esophageal burning spasms- Needs barium esophageogram, which is not available due to back order on barium. Will see if we can get EGD done to revaluate for any esophagitis, given that she has been on steroids 20mg prednisone as well as inhaled steroids. Dr Weber to evaluate if EGD possible. COPD- Stable, wean off prendisone to 15mg once daily as per PCP notes. DVT prophylaxis- Arixtra Afib- HR stable, on amiodarone. Medical - PN: Qual - Stroke Symptom Onset Unknown: No - VTE Deep Vein Thrombosis/Pulmonary Embolism Present on Admission: No
--- NOTE | 2016-07-27 15:11 | Event Note ---
Surgery consult held off for now given EGD not possible.
[2016-07-27] MEDS ORDERED: LENALIDOMIDE 2.5 MG PO SCH (16:00)
[2016-07-27] MEDS ORDERED: CASPOFUNGIN ACETATE 70 MG in 0.9 % SODIUM CHLORIDE 250 ML IV ONE (16:00)
[2016-07-27] MEDS: NYSTATIN 500,000 UNITS/5 ML ORAL.SUSP SSW SCH ×2 (16:36→21:54)
[2016-07-27] MEDS ORDERED: IPRATROPIUM/ALBUTEROL 3 ML AMPUL.NEB NEB ONE (17:25)
--- NOTE | 2016-07-27 17:28 | Event Note ---
Patient condition noted to be worsening She became hypoxic, from 2-3 Oxygen to 7 L with 86%, BP 98/50 HR 90, Pt was otherwise comfortable, noted some shortness of breath. Will get X ray chest cbc, cmp, blood cultures BNP
[2016-07-27] MEDS: LENALIDOMIDE 2.5 MG PO SCH (18:17)
--- NOTE | 2016-07-27 18:40 | XRay Report ---
CLINICAL INFORMATION: Shortness of breath COMPARISON: 07/23/2016 FINDINGS: Marked cardiomegaly is unchanged. Mediastinum and pulmonary vessels are normal. Right IJ central line in stable satisfactory position. Moderate sized consolidated infiltrate in the right base has worsened. There is a moderate right pleural effusion. Small consolidated infiltrate in the left base is also worsened. Small left pleural effusion IMPRESSION: Moderate right and small left basilar consolidated infiltrates/atelectasis and effusions worsening since exam four days prior. Consider aspiration Interpreted and Authenticated by: Jamie Oropeza 07/27/16
[2016-07-27 18:52] LABS: ALT/SGPT 30 U/l (0-40); Albumin 2.5 gm/dL (3.2-5.2); Albumin/Globulin Ratio 1.1 (1.0-2.3); Alkaline Phosphatase 54 U/L (39-117); Bilirubin,Direct 0.2 mg/dL (0.0-0.3); Blood Urea Nitrogen 26 mg/dl (8-23); Gamma Glutamyl Transpeptidase 8 U/L (5-36); Magnesium 2.1 mg/dL (1.6-2.5); Phosphorous 2.6 mg/dL (2.7-4.5); Uric Acid 3.5 mg/dL (2.5-8.0)
[2016-07-27 18:57] LABS: Basophils # (Auto) 0.2 K/mcL (0.0-0.3); Basophils % (Auto) 3.9 % (0.0-2.0); Eosinophils # (Auto) 0 K/mcL (0.0-0.7); Eosinophils % (Auto) 0.3 % (0.0-7.0); Granulocytes % (Auto) 66.4 % (38.0-78.0); Lymphocytes # (Auto) 0.8 K/mcL (1.5-4.8); Lymphocytes % (Auto) 18.9 % (15.5-49.0); Mean Cell Volume 99.8 fL (80.0-100.0); Mean Corpuscular HGB Conc 31.3 g/dL (31.0-36.0); Mean Corpuscular Hemoglobin 31.3 pg (26.0-34.0); Monocytes # (Auto) 0.5 K/mcL (0.1-0.9); Monocytes % (Auto) 10.5 % (1.0-9.0); Platelet Count 48 K/mcL (140-440); RBC 3.11 M/mcL (4.00-5.20); Red Cell Distribution Width 24.9 % (11.5-14.5)
[2016-07-27] MEDS: SENNOSIDES/DOCUSATE SODIUM 1 TAB TABLET PO SCH (21:55)
[2016-07-28] MEDS: IPRATROPIUM/ALBUTEROL 3 ML AMPUL.NEB NEB SCH ×6 (03:16→23:16)
[2016-07-28] MEDS: 0.9 % SODIUM CHLORIDE 10 ML SYRINGE IV SCH ×3 (05:13→22:03)
[2016-07-28] MEDS ORDERED: predniSONE 5 MG TABLET PO SCH (08:00)
[2016-07-28] MEDS: PANTOPRAZOLE 40 MG VIAL IV SCH (08:02)
[2016-07-28 08:05] LABS: Mean Cell Volume 101.9 fL (80.0-100.0); Mean Corpuscular HGB Conc 30.9 g/dL (31.0-36.0); Mean Corpuscular Hemoglobin 31.5 pg (26.0-34.0); Platelet Count 51 K/mcL (140-440); RBC 3.01 M/mcL (4.00-5.20); Red Cell Distribution Width 24.4 % (11.5-14.5)
[2016-07-28] MEDS: 0.9 % SODIUM CHLORIDE 250 ML IV SCH ×2 (08:06→23:07)
[2016-07-28] MEDS: BUDESONIDE 0.5 MG/2 ML AMPUL.NEB NEB SCH (08:12)
[2016-07-28 08:20] LABS: ALT/SGPT 27 U/l (0-40); Albumin 2.5 gm/dL (3.2-5.2); Albumin/Globulin Ratio 1.2 (1.0-2.3); Alkaline Phosphatase 54 U/L (39-117); Bilirubin,Direct 0.3 mg/dL (0.0-0.3); Blood Urea Nitrogen 25 mg/dl (8-23); Gamma Glutamyl Transpeptidase 8 U/L (5-36); Magnesium 2.1 mg/dL (1.6-2.5); Phosphorous 2.8 mg/dL (2.7-4.5); Uric Acid 3.2 mg/dL (2.5-8.0)
[2016-07-28 08:29] LABS: Anisocytosis 2+ (NONE SEEN); Band Neutrophils % 19 % (0-10); Basophils % (Manual) 1 % (0-2); Eosinophils % (Manual) 2 % (0-7); Lymphocytes % 23 % (15-49); Macrocytosis 1+ (NONE SEEN); Monocytes % (Manual) 11 % (1-9); Ovalocytes 1+ (NONE SEEN); Platelet Estimate DECREASED (NORMAL); RBC Morphology ABNORM (NORMAL); Segmented Neutrophils % 41 % (38-78)
[2016-07-28] MEDS ORDERED: CASPOFUNGIN ACETATE 50 MG in 0.9 % SODIUM CHLORIDE 250 ML IV SCH (09:00)
[2016-07-28] MEDS ORDERED: IPRATROPIUM/ALBUTEROL 3 ML AMPUL.NEB NEB ONE (09:08)
[2016-07-28] MEDS: CEFEPIME 2 GM in DEXTROSE 5% IN WATER 50 ML IV SCH (09:24)
[2016-07-28] MEDS: DOCUSATE SODIUM 100 MG CAPSULE PO SCH (09:32)
[2016-07-28] MEDS: FUROSEMIDE 20 MG TABLET PO SCH (09:33)
[2016-07-28] MEDS: LACTOBACILLUS 1 CAPSULE PO SCH (09:34)
[2016-07-28] MEDS: MULTIVIT,THER IRON,CA,FA & MIN 1 TABLET PO SCH (09:34)
[2016-07-28] MEDS: DULoxetine 30 MG CAPSULE PO SCH (09:34)
[2016-07-28] MEDS: POTASSIUM CHLORIDE 20 MEQ/15 ML ML PO SCH (09:34)
[2016-07-28] MEDS: NEUTRA PHOS 1 PACKET PO SCH (09:34)
[2016-07-28] MEDS: NYSTATIN 500,000 UNITS/5 ML ORAL.SUSP SSW SCH (09:34)
[2016-07-28] MEDS: ALPRAZolam 0.5 MG TABLET PO SCH (09:35)
[2016-07-28] MEDS: FLUTICASONE PROPIONATE SPRAY.NAS NS SCH (09:35)
[2016-07-28] MEDS: LENALIDOMIDE 2.5 MG PO SCH (09:35)
[2016-07-28] MEDS: AMIODARONE HCL 200 MG TABLET PO SCH (09:36)
[2016-07-28] MEDS: FONDAPARINUX SODIUM 2.5 MG/0.5 ML SYRINGE SQ SCH (10:32)
--- NOTE | 2016-07-28 12:21 | Internal Med Progress Note ---
Medical - PN: Subj Patient information: Note initiated : 07/28/16 at 11:54 am Service Date, if different from initiated Date: [] Patient: Rochelle Olivas 85 y/o F admitted on 07/21/16 for SOB/Hypoxic Respiratory Failure, Septic Shock, PNA. Chief Complaint: [] Interval history: 07/21- atient admitted with septic shock/bilateral pneumonia. Started on vasopressors. nearly obtunded status. On broad antibiotic coverage/noninvasive ventilation in light of hypoxic respiratory failure. Critically ill. [place] 2 score over 20 indicating high-risk mortality. Family aware. patient is no code and hence intubation on an option. aggressive and close hemodynamic monitoring and management in ICU 07/22-patient off pressors. Improving urine output. Off BiPAP and 5 L oxygen. More alert and responsive. still unable to talk in full sentences. Family at bedside. Discussed clinical findings including chest imaging blood gas hemodynamic status with family and plan of care. Patient remains high-risk mortality given massive aspiration with bilateral pneumonia leading to hypoxia respiratory failure. Continue close ICU monitoring 07/23-patient off BiPAP. On 2 L oxygen. More alert and lucid in unresponsive.. Speech therapy ongoing. Complaint of central chest pain on swallowing. On level to nectar hick diet per ST. Esophagram ordered to rule out stenosis as a cause of recurrent aspiration. No overnight fever chills nausea vomiting. afebrile. white count of 4000. Platelets of 139. DC heparin . Started SCDs. case discussed with patient's son and possible transfer to SNF in 48 hours due to significant clinical improvement. Transfer to medical floor in 24 hours. 07/24- patient doing well. No overnight events. Off BiPAP. Persistent dysphagia with central chest pain on swallowing. On nectar thick diet. 2 L oxygen. More alert and lucid. Grandson at bedside. Discussed treatment plan. esophagram Performed due to barium on back order. 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 Hit antibodies sent. Heparin discontinued on 07/23, no heparin flushes. Continue anticoagulation. no evidence of thrombosis. Switch to fondaparinux. Dc apixiban. transfer to medical floor . continue aspiration precautions. Possible discharge on Wednesday to SNF with outpatient barium studies/ST eval and treatment and likely GI follow-up for dysphagia/recurrent aspiration. Continue antibiotic coverage. No overnight fever chills nausea vomiting. Patient clinically much better. Tolerating diet and physical therapy. Family including son and grandson at bedside. potassium at 2.9. Lipase 80 mEq potassium 3/5-platelets at 44. 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 Heparin discontinued due to concerns of HIT. continue monitoring. No signs of bleeding or thrombosis. On fondaparinux. Apixiban temporarily held. continue pulmonary toilet/oxygen to maintain sats around 88. Continue bronchodilators. de-escalate antibiotics and discharge. Anticipate discharge to SNF in a.m. 07/27 Patient seen examined, no acute overnight events, no new complaints. lab reiviewed with the patient, the patients platlets continue to drop, HIT workup pending. The patient has h/o MDS and was supposed to be on revlimid, this medication was stopped by error on admission. I spoke with the patients oncologist and confirmed the plan. He also noted that its possible that the patients platlets have dropped due to infection given this happens in patients with MDS, but given the clinical suspicion of HIT, will hold of on eliquis and continue arixtra. The patient will need to have near normal platlets before discharge planning can be done given risk of thrombotic event as per Hematology / Oncology. Hb is stable for now, conside epogen if needed. The patient still reports significant pain during swallowing. 07/28 The patient seen examined, overnight events noted, the patient has had 2 rounds of sudden desaturations. The patient after movement or coughing, would desaturated needing Fio2 upto 8L oxygen. She would then respond to duonebs and chest PT and patient would improve. She still has cough and some shortness of breath. X ray chest done yesterday shows worsening of aspiration pneumonia. The patient is presently on cefepime which will be discontined as its completed its course and will start her on PO clindamycin for aspiration pneumonia. She is also on poprobiotics. Nursing had some concern this AM regarding dark st ools, fob positive, pt has low platlets, but Hb is stable, she is also on MV with iron which can explain dark stools and positive fob, monitor for now. the patient is cachetic, and has poor functional status. 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 I reviewed this with the patients son and daughter in law. Explained to them the poor prognosis. The possibility of the continuing to deteriorate and not make it thought this admission. They verbalized understanding. She is already DNR. I think the patient would benefit from palliative care should she were to survive this admission. I have asked case management to look into this. Patient will be Xfer to tele today given repeated desaturations for now Platlet count improved today to 51, Bicarb still high. Pertinent ROS: Denies headache, dizziness Denies chest pain, palpitations cough and sob on exertion present. Denies abdominal pain, nausea or vomiting. Additional PMFSH (Level 3 Only): reviewed - Constitutional Vitals: Vital Signs Temp Pulse Resp BP Pulse Ox 98.4 F 16 L 20 104/68 92 07/28/16 07:37 07/28/16 08:13 07/28/16 09:10 07/28/16 07:37 07/28/16 07:37 Period Temp Pulse Resp BP Sys/[place] Pulse Ox Last 24 Hr 96.0 F-98.4 F 16-110 16-88 89-114/49-69 81-99 Intake and Output 07/27/16 07/28/16 07/28/16 21:59 05:59 13:59 Intake Total 250 / 250 100 / 100 Output Total 900 / 900 600 / 600 Balance -650 / -650 100 / 100 -600 / -600 Weight 117 lb 14.4 oz Intake & Output: Intake & Output 07/27/16 07/28/16 07/28/16 21:59 05:59 13:59 Intake Total 250 / 250 100 / 100 Output Total 900 / 900 600 / 600 Balance -650 / -650 100 / 100 -600 / -600 Weight 117 lb 14.4 oz Intake: IV 250 / 250 50 / 50 Sodium Chloride 0.9% 250 250 / 250 ml @ 20 mls/hr IV . [id number] TIFFANY Rx#:[id number] Dextrose 5% in Water 50 50 / 50 ml @ 100 mls/hr IV Q12H TIFFANY with Maxipime 2 gm Rx #:[id number] Oral 50 / 50 Output: Urine Catheter Amount 900 / 900 600 / 600 Other: # Bowel Movements 1 Exam: Constitutional; Afebrile, cooperative, alert, not in distress, cachetic Eyes- No icterus, Pupils equal, reactive, No periorbital swelling Ears- Ext ear normal, hearing ok to conversation Neck- Midline trachea, supple Respiratory system: Air Entry equal on both sides but poor, CVS- Rate normal, rhythm irregular, S1,S2 heard, no gallop, no rub. Abdomen- Soft nontender abdomen, no organomegaly, no tenderness, no guarding or rigidity, [employer]- AOOx3, moving all extremities, no focal deficit noted. Medical - PN: Obj Da - Labs CBC & Chem 7: 07/28/16 07:08 07/28/16 07:08 Labs: Abnormal Lab Results 07/28/16 07/28/16 07/27/16 07:08 07:08 17:30 WBC RBC 3.01 L Hgb 9.5 L Hct 30.7 L MCV 101.9 H MCHC 30.9 L RDW 24.4 H Plt Count 51 L MPV 12.2 H [place] % (Auto) Baso % (Auto) Lymph # Band Neutrophils % 19 H Monocytes % (Manual) 11 H Reactive Lymphocytes 3 H Platelet Estimate RBC Morphology Abnorm A Basophilic Stippling Anisocytosis 2+ A Macrocytosis 1+ A Ovalocytes 1+ A Sodium Potassium Carbon Dioxide 42 H* Anion Gap 2.0 L BUN 25 H Glucose Calcium 8.0 L Phosphorus NT-Pro-B Natriuret Pep 8501.0 H Total Protein 4.6 L Albumin 2.5 L Globulin 2.1 L 07/27/16 07/27/16 07/27/16 17:30 17:30 08:03 WBC 4.3 L RBC 3.11 L Hgb 9.7 L Hct 31.0 L MCV MCHC RDW 24.9 H Plt Count 48 L* MPV 10.7 H [place] % (Auto) 10.5 H Baso % (Auto) 3.9 H Lymph # 0.8 L Band Neutrophils % Monocytes % (Manual) Reactive Lymphocytes Platelet Estimate RBC Morphology Basophilic Stippling Anisocytosis Macrocytosis Ovalocytes Sodium Potassium 3.2 L Carbon Dioxide 39 H 41 H* Anion Gap 5.0 L 3.0 L BUN 26 H 26 H Glucose 159 H Calcium 7.9 L 8.0 L Phosphorus 2.6 L 2.0 L NT-Pro-B Natriuret Pep Total Protein 4.7 L 4.4 L Albumin 2.5 L 2.5 L Globulin 1.9 L 07/27/16 07/26/16 07/26/16 08:03 03:50 03:50 WBC 3.9 L 3.5 L RBC 2.95 L 2.84 L Hgb 9.3 L 8.8 L Hct 29.9 L 28.5 L MCV 101.4 H 100.4 H MCHC RDW 25.2 H 25.2 H Plt Count 43 L* 44 L* MPV 10.7 H 10.9 H [place] % (Auto) Baso % (Auto) Lymph # Band Neutrophils % Monocytes % (Manual) 14 H Reactive Lymphocytes Platelet Estimate Mk decr A Mk decr A RBC Morphology Abnorm A Abnorm A Basophilic Stippling Few A Anisocytosis 2+ A 2+ A Macrocytosis 1+ A 1+ A Ovalocytes Few A Sodium 146 H Potassium 3.0 L Carbon Dioxide 39 H Anion Gap 3.0 L BUN 27 H Glucose Calcium 8.1 L Phosphorus 1.9 L NT-Pro-B Natriuret Pep Total Protein 4.3 L Albumin 2.4 L Globulin 1.9 L Meds: Medications Acetaminophen (Tylenol) 650 mg PO Q4-6HP PRN PRN Reason: PAIN/FEVER > 101 Albuterol/Ipratropium (Duoneb) 3 ml NEB Q4HRT [facility] Last Admin: 07/28/16 11:54 Dose: 3 ml Alprazolam (Xanax) 0.5 mg PO BID [facility] Last Admin: 07/28/16 09:35 Dose: Not Given Amiodarone HCl (Cordarone) 100 mg PO [facility] Last Admin: 07/28/16 09:36 Dose: 100 mg Bisacodyl (Dulcolax) 10 mg VT Q2-3DAYS PRN PRN Reason: Constipation Last Admin: 07/27/16 14:13 Dose: 10 mg Budesonide (Pulmicort) 0.5 mg NEB Q12 [facility] Last Admin: 07/28/16 08:12 Dose: 0.5 mg Clindamycin HCl (Cleocin) 450 mg PO Q8 [facility] Docusate Sodium (Colace) 100 mg PO BID [facility] Last Admin: 07/28/16 09:32 Dose: 100 mg Duloxetine HCl (Cymbalta) 30 mg PO DAILY [facility] Last Admin: 07/28/16 09:34 Dose: 30 mg Fluticasone Propionate (Flonase) 1 spray NS BID [facility] Last Admin: 07/28/16 09:35 Dose: Not Given Fondaparinux (Arixtra) 2.5 mg SQ DAILY [facility] Last Admin: 07/28/16 10:32 Dose: 2.5 mg Furosemide (Lasix) 20 mg PO DAILY [facility] Last Admin: 07/28/16 09:33 Dose: 20 mg Magnesium Sulfate (Magnesium Sulfate) 2 gm in 50 mls @ 50 mls/hr IV UD PRN PRN Reason: MG = or < 1.7 Sodium Chloride (Sodium Chloride 0.9%) 250 mls @ 20 mls/hr IV .[id number] [facility] Last Admin: 07/28/16 08:06 Dose: Not Given Acetaminophen (Ofirmev) 1,000 mg in 100 mls @ 200 mls/hr IV Q6HP PRN PRN Reason: PAIN/FEVER > 101 Caspofungin 50 mg/ Sodium (Chloride) 250 mls @ 250 mls/hr IV DAILY [facility] Last Admin: 07/28/16 10:37 Dose: 250 mls/hr Iron Carb/Multivit/[place]/Folic Acid (Multivitamin W/Minerals) 1 tab PO DAILY [facility] Last Admin: 07/28/16 09:34 Dose: 1 tab Lactobacillus Rhamnosus (Culturelle) 1 cap PO BID [facility] Magnesium Hydroxide (Milk Of Magnesia) 30 ml PO HSP PRN PRN Reason: Constipation Ondansetron HCl (Zofran) 4 mg IV Q4-6HP PRN PRN Reason: Nausea And Vomiting Pantoprazole Sodium [facility]ix) [facility] Last Admin: 07/28/16 08:02 Dose: 40 mg Lenalidomide 2.5 Mg ((Revlimid) Capsule) 1 dose PO DAILY [facility] Last Admin: 07/28/16 09:35 Dose: 1 dose Potassium Chloride (Klor-Con) 40 meq PO DAILYP PRN PRN Reason: K+ < 3.5 Potassium Chloride (Potassium Chloride) 20 meq PO BIDCC [facility] Last Admin: 07/28/16 09:34 Dose: 20 meq Potassium/Phosphorus/Sodium (Neutra Phos) 2 packet PO BID [facility] Last Admin: 07/28/16 09:34 Dose: 2 packet Pred[facility]) [facility] Last Admin: 07/28/16 09:31 Dose: 15 mg Senna/Docusate Sodium (Senna Plus Tablet) 1 tab PO [facility] Last Admin: 07/27/16 21:55 Dose: 1 tab Sodium Biphosphate/Sodium Phosphate (Fleets Adult) 1 dose VT Q3-4DAYS PRN PRN Reason: Constipation Sodium Chloride (Saline Flush) 10 ml IV Q8 [facility] Last Admin: 07/28/16 05:13 Dose: 10 ml Trazodone HCl (Desyrel) 50 mg PO HSP PRN PRN Reason: Insomnia Medical - PN: A/P - Time Spent With Patient Total time spent is greater than 50% in coordination of care (as documented) at patient's floor/unit and/or counseling patient: - Narrative A/P Narrative: Acute on chr hypoxic resp failure Aspiration pneumonia Afib Copd exacerbation, 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 IV steroids for now. Xfer to Tele status. await HIT seroilogies continue caspofungin for possible fungal esophagitis monitor labs contiue fondaparinaux Poor prognosis. Medical - PN: Qual - Stroke Symptom Onset Unknown: No - VTE Deep Vein Thrombosis/Pulmonary Embolism Present on Admission: No
[2016-07-28] MEDS ORDERED: MAGNESIUM SULFATE 2 GM/50 ML BAG IV PRN ×2 (13:16→22:27)
[2016-07-28] MEDS ORDERED: BISACODYL 10 MG SUPP.RECT PR PRN ×2 (13:16→22:27)
[2016-07-28] MEDS ORDERED: ACETAMINOPHEN 325 MG TABLET PO PRN ×2 (13:16→22:27)
[2016-07-28] MEDS ORDERED: MAGNESIUM HYDROXIDE 30 ML ORAL.SUSP PO PRN ×2 (13:16→22:27)
[2016-07-28] MEDS ORDERED: ONDANSETRON 4 MG/2 ML VIAL IV PRN ×2 (13:16→22:27)
[2016-07-28] MEDS ORDERED: POTASSIUM CHLORIDE 20 MEQ PACKET PO PRN ×2 (13:16→22:27)
[2016-07-28] MEDS ORDERED: ACETAMINOPHEN 1,000 MG/100 ML BOTTLE IV PRN ×2 (13:16→22:27)
[2016-07-28] MEDS ORDERED: 0.9 % SODIUM CHLORIDE 1,000 ML IV SCH (13:16)
[2016-07-28] MEDS ORDERED: FLEETS ADULT ENEMA PR PRN ×2 (13:16→22:27)
[2016-07-28] MEDS ORDERED: traZODone HCL 50 MG TABLET PO PRN ×2 (13:16→22:27)
[2016-07-28] MEDS ORDERED: 0.9 % SODIUM CHLORIDE 250 ML IV SCH (13:16)
[2016-07-28] MEDS ORDERED: CLINDAMYCIN 600 MG in DEXTROSE 5% IN WATER 50 ML IV SCH (14:00)
[2016-07-28] MEDS ORDERED: CLINDAMYCIN 150 MG CAPSULE PO SCH (14:00)
[2016-07-28] MEDS ORDERED: methylPREDNISolone SOD SUCC 40 MG/ML VIAL IV SCH (14:00)
[2016-07-28] MEDS: CLINDAMYCIN 600 MG in DEXTROSE 5% IN WATER 50 ML IV SCH ×2 (14:33→20:54)
[2016-07-28] MEDS: methylPREDNISolone SOD SUCC 40 MG/ML VIAL IV SCH ×2 (14:33→22:03)
[2016-07-28] MEDS ORDERED: POTASSIUM CHLORIDE 20 MEQ/15 ML ML PO SCH (17:30)
[2016-07-28] MEDS ORDERED: LACTOBACILLUS 1 CAPSULE PO SCH ×2 (21:00)
[2016-07-28] MEDS ORDERED: DOCUSATE SODIUM 100 MG CAPSULE PO SCH (21:00)
[2016-07-28] MEDS ORDERED: FLUTICASONE PROPIONATE SPRAY.NAS NS SCH (21:00)
[2016-07-28] MEDS ORDERED: NEUTRA PHOS 1 PACKET PO SCH (21:00)
[2016-07-28] MEDS ORDERED: SENNOSIDES/DOCUSATE SODIUM 1 TAB TABLET PO SCH (21:00)
[2016-07-28] MEDS ORDERED: BUDESONIDE 0.5 MG/2 ML AMPUL.NEB NEB SCH (21:00)
[2016-07-28] MEDS ORDERED: ALPRAZolam 0.5 MG TABLET PO SCH (21:00)
[2016-07-28] MEDS: 0.9 % SODIUM CHLORIDE 1,000 ML IV SCH (23:07)
[2016-07-29] MEDS: IPRATROPIUM/ALBUTEROL 3 ML AMPUL.NEB NEB SCH ×6 (04:04→23:13)
[2016-07-29 05:41] LABS: Basophils # (Auto) 0.1 K/mcL (0.0-0.3); Basophils % (Auto) 2.1 % (0.0-2.0); Eosinophils # (Auto) 0 K/mcL (0.0-0.7); Eosinophils % (Auto) 0 % (0.0-7.0); Granulocytes % (Auto) 73.3 % (38.0-78.0); Lymphocytes # (Auto) 0.6 K/mcL (1.5-4.8); Lymphocytes % (Auto) 14.8 % (15.5-49.0); Mean Cell Volume 101.8 fL (80.0-100.0); Mean Corpuscular HGB Conc 31.2 g/dL (31.0-36.0); Mean Corpuscular Hemoglobin 31.7 pg (26.0-34.0); Monocytes # (Auto) 0.4 K/mcL (0.1-0.9); Monocytes % (Auto) 9.8 % (1.0-9.0); Platelet Count 56 K/mcL (140-440); RBC 2.85 M/mcL (4.00-5.20); Red Cell Distribution Width 25.6 % (11.5-14.5)
[2016-07-29] MEDS: 0.9 % SODIUM CHLORIDE 10 ML SYRINGE IV SCH ×3 (05:42→21:16)
[2016-07-29] MEDS: CLINDAMYCIN 600 MG in DEXTROSE 5% IN WATER 50 ML IV SCH ×3 (05:44→21:16)
[2016-07-29] MEDS ORDERED: methylPREDNISolone SOD SUCC 40 MG/ML VIAL IV SCH (06:00)
[2016-07-29 06:16] LABS: ALT/SGPT 23 U/l (0-40); Albumin 2.5 gm/dL (3.2-5.2); Albumin/Globulin Ratio 1.3 (1.0-2.3); Alkaline Phosphatase 59 U/L (39-117); Bilirubin,Direct 0.2 mg/dL (0.0-0.3); Blood Urea Nitrogen 27 mg/dl (8-23); Gamma Glutamyl Transpeptidase 5 U/L (5-36); Magnesium 2.2 mg/dL (1.6-2.5); Phosphorous 3.8 mg/dL (2.7-4.5); Uric Acid 3.1 mg/dL (2.5-8.0)
[2016-07-29] MEDS: BUDESONIDE 0.5 MG/2 ML AMPUL.NEB NEB SCH ×2 (07:29→19:19)
[2016-07-29] MEDS ORDERED: PANTOPRAZOLE 40 MG VIAL IV SCH (07:30)
[2016-07-29] MEDS: PANTOPRAZOLE 40 MG VIAL IV SCH (07:52)
[2016-07-29] MEDS ORDERED: AMIODARONE HCL 200 MG TABLET PO SCH (08:00)
[2016-07-29] MEDS ORDERED: DULoxetine 30 MG CAPSULE PO SCH (09:00)
[2016-07-29] MEDS ORDERED: LENALIDOMIDE 2.5 MG PO SCH (09:00)
[2016-07-29] MEDS ORDERED: MULTIVIT,THER IRON,CA,FA & MIN 1 TABLET PO SCH (09:00)
[2016-07-29] MEDS ORDERED: FONDAPARINUX SODIUM 2.5 MG/0.5 ML SYRINGE SQ SCH (09:00)
[2016-07-29] MEDS ORDERED: CASPOFUNGIN ACETATE 50 MG in 0.9 % SODIUM CHLORIDE 250 ML IV SCH (09:00)
[2016-07-29] MEDS ORDERED: FUROSEMIDE 20 MG TABLET PO SCH (09:00)
[2016-07-29] MEDS: AMIODARONE HCL 200 MG TABLET PO SCH (09:22)
[2016-07-29] MEDS: FUROSEMIDE 20 MG TABLET PO SCH (09:23)
[2016-07-29] MEDS: DOCUSATE SODIUM 100 MG CAPSULE PO SCH ×2 (09:24→21:09)
[2016-07-29] MEDS: POTASSIUM CHLORIDE 20 MEQ/15 ML ML PO SCH ×2 (09:24→17:26)
[2016-07-29] MEDS: DULoxetine 30 MG CAPSULE PO SCH (09:24)
[2016-07-29] MEDS: MULTIVIT,THER IRON,CA,FA & MIN 1 TABLET PO SCH (09:24)
[2016-07-29] MEDS: NEUTRA PHOS 1 PACKET PO SCH ×2 (09:27→21:14)
[2016-07-29] MEDS: ALPRAZolam 0.5 MG TABLET PO SCH ×2 (09:27→21:14)
[2016-07-29] MEDS: LENALIDOMIDE 2.5 MG PO SCH (09:28)
[2016-07-29] MEDS: CASPOFUNGIN ACETATE 50 MG in 0.9 % SODIUM CHLORIDE 250 ML IV SCH (09:28)
[2016-07-29] MEDS: FLUTICASONE PROPIONATE SPRAY.NAS NS SCH ×2 (09:45→21:15)
[2016-07-29] MEDS: LACTOBACILLUS 1 CAPSULE PO SCH ×2 (09:50→21:13)
[2016-07-29] MEDS: FONDAPARINUX SODIUM 2.5 MG/0.5 ML SYRINGE SQ SCH (09:51)
--- NOTE | 2016-07-29 11:32 | Internal Med Progress Note ---
Medical - PN: Subj Patient information: Note initiated : 07/29/16 at 11:28 am Service Date, if different from initiated Date: [] Patient: Rochelle Olivas 85 y/o F admitted on 07/21/16 for SOB/Hypoxic Respiratory Failure, Septic Shock, PNA. Chief Complaint: [] Interval history: 07/21- atient admitted with septic shock/bilateral pneumonia. Started on vasopressors. nearly obtunded status. On broad antibiotic coverage/noninvasive ventilation in light of hypoxic respiratory failure. Critically ill. [place] 2 score over 20 indicating high-risk mortality. Family aware. patient is no code and hence intubation on an option. aggressive and close hemodynamic monitoring and management in ICU 07/22-patient off pressors. Improving urine output. Off BiPAP and 5 L oxygen. More alert and responsive. still unable to talk in full sentences. Family at bedside. Discussed clinical findings including chest imaging blood gas hemodynamic status with family and plan of care. Patient remains high-risk mortality given massive aspiration with bilateral pneumonia leading to hypoxia respiratory failure. Continue close ICU monitoring 07/23-patient off BiPAP. On 2 L oxygen. More alert and lucid in unresponsive.. Speech therapy ongoing. Complaint of central chest pain on swallowing. On level to nectar hick diet per ST. Esophagram ordered to rule out stenosis as a cause of recurrent aspiration. No overnight fever chills nausea vomiting. afebrile. white count of 4000. Platelets of 139. DC heparin . Started SCDs. case discussed with patient's son and possible transfer to SNF in 48 hours due to significant clinical improvement. Transfer to medical floor in 24 hours. 07/24- patient doing well. No overnight events. Off BiPAP. Persistent dysphagia with central chest pain on swallowing. On nectar thick diet. 2 L oxygen. More alert and lucid. Grandson at bedside. Discussed treatment plan. esophagram Performed due to barium on back order. 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 Hit antibodies sent. Heparin discontinued on 07/23, no heparin flushes. Continue anticoagulation. no evidence of thrombosis. Switch to fondaparinux. Dc apixiban. transfer to medical floor . continue aspiration precautions. Possible discharge on Wednesday to SNF with outpatient barium studies/ST eval and treatment and likely GI follow-up for dysphagia/recurrent aspiration. Continue antibiotic coverage. No overnight fever chills nausea vomiting. Patient clinically much better. Tolerating diet and physical therapy. Family including son and grandson at bedside. potassium at 2.9. Lipase 80 mEq potassium 3/5-platelets at 44. 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 Heparin discontinued due to concerns of HIT. continue monitoring. No signs of bleeding or thrombosis. On fondaparinux. Apixiban temporarily held. continue pulmonary toilet/oxygen to maintain sats around 88. Continue bronchodilators. de-escalate antibiotics and discharge. Anticipate discharge to SNF in a.m. 07/27 Patient seen examined, no acute overnight events, no new complaints. lab reiviewed with the patient, the patients platlets continue to drop, HIT workup pending. The patient has h/o MDS and was supposed to be on revlimid, this medication was stopped by error on admission. I spoke with the patients oncologist and confirmed the plan. He also noted that its possible that the patients platlets have dropped due to infection given this happens in patients with MDS, but given the clinical suspicion of HIT, will hold of on eliquis and continue arixtra. The patient will need to have near normal platlets before discharge planning can be done given risk of thrombotic event as per Hematology / Oncology. Hb is stable for now, conside epogen if needed. The patient still reports significant pain during swallowing. 07/28 The patient seen examined, overnight events noted, the patient has had 2 rounds of sudden desaturations. The patient after movement or coughing, would desaturated needing Fio2 upto 8L oxygen. She would then respond to duonebs and chest PT and patient would improve. She still has cough and some shortness of breath. X ray chest done yesterday shows worsening of aspiration pneumonia. The patient is presently on cefepime which will be discontined as its completed its course and will start her on PO clindamycin for aspiration pneumonia. She is also on poprobiotics. Nursing had some concern this AM regarding dark st ools, fob positive, pt has low platlets, but Hb is stable, she is also on MV with iron which can explain dark stools and positive fob, monitor for now. the patient is cachetic, and has poor functional status. 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 I reviewed this with the patients son and daughter in law. Explained to them the poor prognosis. The possibility of the continuing to deteriorate and not make it thought this admission. They verbalized understanding. She is already DNR. I think the patient would benefit from palliative care should she were to survive this admission. I have asked case management to look into this. Patient will be Xfer to tele today given repeated desaturations for now Platlet count improved today to 51, Bicarb still high. 3./8 Pt seen examined on tele now, doing well, no acute overnight events, no further desaturation episodes since yesterday. She does not endrose any new complaints. She has not eaten yet , but we jorge see if her dysphagia is any better. her breathing is better and she is at baseline oxygen levels. ASpiration pna- On clindamycin d2/7 today, on probiotics. continue asme Copd exacerbatino- LIkely reason for desaturation along with mucous plugging and pna, Iv steroids, for now, descalate from solumedrol 40 tid to 40bid today, home dose of prednisone is 20mg qd. Patients platlet count is improving she remains on arixtra for now. continue same. HIT panel awaited. concern for GIB, but her hb is stable and no obvious blood loss, dark stools likely from mv with IRon . Pertinent ROS: Denies headache, dizziness Denies chest pain, palpitations Denies cough or shortness of breath Denies abdominal pain, nausea or vomiting. - Constitutional Vitals: Vital Signs Temp Pulse Resp BP Pulse Ox 97.6 F 90 16 111/72 99 07/29/16 07:51 07/29/16 07:51 07/29/16 07:51 07/29/16 07:51 07/29/16 08:00 Period Temp Pulse Resp BP Sys/[place] Pulse Ox Last 24 Hr 97.1 F-98.0 F 83-100 14-25 87-125/54-75 90-100 Intake and Output 07/28/16 07/29/16 07/29/16 21:59 05:59 13:59 Intake Total 54 / 54 54 / 54 Output Total 920 / 920 250 / 250 Balance -866 / -866 -196 / -196 Weight 115 lb 1.6 oz Intake & Output: Intake & Output 07/28/16 07/29/16 07/29/16 21:59 05:59 13:59 Intake Total 54 / 54 54 / 54 Output Total 920 / 920 250 / 250 Balance -866 / -866 -196 / -196 Weight 115 lb 1.6 oz Intake: IV 54 / 54 54 / 54 Dextrose 5% in Water 50 54 / 54 54 / 54 ml @ 100 mls/hr IV Q8H TIFFANY with Cleocin 600 mg Rx#:[id number] Output: Urine Catheter Amount 920 / 920 250 / 250 Other: Meal Dinner Percent of Meal Consumed 25% Feeding Ability Assist with Tray Set Up Exam: Constitutional; Afebrile, cooperative, alert, not in distress. fraile and weak Eyes- No icterus, No periorbital swelling Ears- Ext ear normal, hearing hard to conversation. Neck- Midline trachea, supple Respiratory system: Air Entry equal on both sides, No crackles or wheezing, no rhonchi.but poor air entry bilaterally. CVS- Rate normal rhythm irregular, S1,S2 heard, no gallop, no rub. 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 Medical - PN: Obj Da - Labs CBC & Chem 7: 07/29/16 04:30 07/29/16 04:30 Labs: Abnormal Lab Results 07/29/16 07/29/16 07/28/16 04:30 04:30 07:08 WBC 4.1 L RBC 2.85 L Hgb 9.0 L Hct 29.0 L MCV 101.8 H MCHC RDW 25.6 H Plt Count 56 L MPV 13.7 H Lymph % (Auto) 14.8 L [place] % (Auto) 9.8 H Baso % (Auto) 2.1 H Lymph # 0.6 L Band Neutrophils % Monocytes % (Manual) Reactive Lymphocytes Platelet Estimate RBC Morphology Anisocytosis Macrocytosis Ovalocytes Sodium 148 H Potassium Carbon Dioxide 39 H 42 H* Anion Gap 4.0 L 2.0 L BUN 27 H 25 H Glucose 133 H Calcium 8.1 L 8.0 L Phosphorus NT-Pro-B Natriuret Pep Total Protein 4.4 L 4.6 L Albumin 2.5 L 2.5 L Globulin 1.9 L 2.1 L 07/28/16 07/27/16 07/27/16 07:08 17:30 17:30 WBC RBC 3.01 L Hgb 9.5 L Hct 30.7 L MCV 101.9 H MCHC 30.9 L RDW 24.4 H Plt Count 51 L MPV 12.2 H Lymph % (Auto) [place] % (Auto) Baso % (Auto) Lymph # Band Neutrophils % 19 H Monocytes % (Manual) 11 H Reactive Lymphocytes 3 H Platelet Estimate RBC Morphology Abnorm A Anisocytosis 2+ A Macrocytosis 1+ A Ovalocytes 1+ A Sodium Potassium Carbon Dioxide 39 H Anion Gap 5.0 L BUN 26 H Glucose 159 H Calcium 7.9 L Phosphorus 2.6 L NT-Pro-B Natriuret Pep 8501.0 H Total Protein 4.7 L Albumin 2.5 L Globulin 07/27/16 07/27/16 07/27/16 17:30 08:03 08:03 WBC 4.3 L 3.9 L RBC 3.11 L 2.95 L Hgb 9.7 L 9.3 L Hct 31.0 L 29.9 L MCV 101.4 H MCHC RDW 24.9 H 25.2 H Plt Count 48 L* 43 L* MPV 10.7 H 10.7 H Lymph % (Auto) [place] % (Auto) 10.5 H Baso % (Auto) 3.9 H Lymph # 0.8 L Band Neutrophils % Monocytes % (Manual) Reactive Lymphocytes Platelet Estimate Mk decr A RBC Morphology Abnorm A Anisocytosis 2+ A Macrocytosis 1+ A Ovalocytes Sodium Potassium 3.2 L Carbon Dioxide 41 H* Anion Gap 3.0 L BUN 26 H Glucose Calcium 8.0 L Phosphorus 2.0 L NT-Pro-B Natriuret Pep Total Protein 4.4 L Albumin 2.5 L Globulin 1.9 L Meds: Medications Acetaminophen (Tylenol) 650 mg PO Q4-6HP PRN PRN Reason: PAIN/FEVER > 101 Albuterol/Ipratropium (Duoneb) 3 ml NEB Q4HRT [facility] Last Admin: 07/29/16 07:28 Dose: 3 ml Alprazolam (Xanax) 0.5 mg PO BID [facility] Last Admin: 07/29/16 09:27 Dose: 0.5 mg [facility] Admin: 07/29/16 09:22 Dose: 100 mg Bisacodyl (Dulcolax) 10 mg NM Q2-3DAYS PRN PRN Reason: Constipation Budesonide (Pulmicort) 0.5 mg NEB Q12 [facility] Last Admin: 07/29/16 07:29 Dose: 0.5 mg Docusate Sodium (Colace) 100 mg PO BID [facility] Last Admin: 07/29/16 09:24 Dose: Not Given Duloxetine HCl (Cymbalta) 30 mg PO DAILY [facility] Last Admin: 07/29/16 09:24 Dose: 30 mg Fluticasone Propionate (Flonase) 1 spray NS BID [facility] Last Admin: 07/29/16 09:45 Dose: Not Given Fondaparinux (Arixtra) 2.5 mg SQ DAILY [facility] Last Admin: 07/29/16 09:51 Dose: 2.5 mg Furosemide (Lasix) 20 mg PO DAILY [facility] Last Admin: 07/29/16 09:23 Dose: 20 mg Caspofungin 50 mg/ Sodium (Chloride) 250 mls @ 250 mls/hr IV DAILY [facility] Last Admin: 07/29/16 09:28 Dose: 250 mls/hr Clindamycin Phosphate 600 mg/ (Dextrose) 54 mls @ 100 mls/hr IV Q8H [facility] Last Admin: 07/29/16 05:44 Dose: 100 mls/hr Magnesium Sulfate (Magnesium Sulfate) 2 gm in 50 mls @ 50 mls/hr IV UD PRN PRN Reason: MG = or < 1.7 Sodium Chloride (Sodium Chloride 0.9%) 1,000 mls @ 75 mls/hr IV .[id number] [facility] Stop: 07/29/16 15:55 Last Admin: 07/28/16 23:07 Dose: Not Given Sodium Chloride (Sodium Chloride 0.9%) 250 mls @ 20 mls/hr IV .[id number] [facility] Last Admin: 07/28/16 23:07 Dose: Not Given Acetaminophen (Ofirmev) 1,000 mg in 100 mls @ 200 mls/hr IV Q6HP PRN PRN Reason: PAIN/FEVER > 101 Iron Carb/Multivit/Field Support Engineer/Folic Acid (Multivitamin W/Minerals) 1 tab PO DAILY [facility] Last Admin: 07/29/16 09:24 Dose: 1 tab Lactobacillus Rhamnosus (Culturelle) 1 cap PO BID [facility] Last Admin: 07/29/16 09:50 Dose: 1 cap Magnesium Hydroxide (Milk Of Magnesia) 30 ml PO HSP PRN PRN Reason: Constipation Methylprednisolone Sodium Succinate (Solu-Medrol) 40 mg IV Q12 [facility] Ondansetron HCl (Zofran) 4 mg IV Q4-6HP PRN PRN Reason: Nausea And Vomiting Pantoprazole Sodium (Protonix) 40 mg IV QAMAC [facility] Last Admin: 07/29/16 07:52 Dose: 40 mg Lenalidomide ( (Revlimid) 2.5 Mg) 1 dose PO DAILY [facility] Last Admin: 07/29/16 09:28 Dose: 1 dose Potassium Chloride (Klor-Con) 40 meq PO DAILYP PRN PRN Reason: K+ < 3.5 Potassium Chloride (Potassium Chloride) 20 meq PO BIDCC [facility] Last Admin: 07/29/16 09:24 Dose: 20 meq Potassium/Phosphorus/Sodium (Neutra Phos) 2 packet PO BID [facility] Last Admin: 07/29/16 09:27 Dose: 2 packet Senna/Docusate Sodium (Senna Plus Tablet) 1 tab PO HS [facility] Sodium Biphosphate/Sodium Phosphate (Fleets Adult) 1 dose NM Q3-4DAYS PRN PRN Reason: Constipation Sodium Chloride (Saline Flush) 10 ml IV Q8 [facility] Last Admin: 07/29/16 05:42 Dose: 10 ml Trazodone HCl (Desyrel) 50 mg PO HSP PRN PRN Reason: Insomnia Medical - PN: A/P - Time Spent With Patient Total time spent is greater than 50% in coordination of care (as documented) at patient's floor/unit and/or counseling patient: (1) Paroxysmal atrial fibrillation with RVR Status: Acute Current Visit: Yes (2) COPD (chronic obstructive pulmonary disease) Problem details: With increasing exertional dyspnea//abgs 4L 04/20/2016 Status : Chronic Current Visit: Yes (3) Acute exacerbation of chronic obstructive airways disease Status: Acute Current Visit: No (4) Myelodysplasia (myelodysplastic syndrome) Problem details: w/ pancytopenia Status: Chronic Current Visit: No - Narrative A/P Narrative: HCAP pna s/p ABX treatment Aspiration pna - on clindamycin d2/7 iv continue same copd exacerbation - IV solumedrol , wean off to 40qd tomorrow, continue duonebs and oxygen supplementation 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 Once platelets are normal ok to switch to eliquis, no thormbotic episode noted. AFib- On amiodarone, continue same, HR stable, will resume eliquis for anticoagulation on d/c, esophagitis likely fungal- On caspofungin d3/7, continue same, see if pt improves with same, if not will need outpatient EGD vs barium swallow. Medical - PN: Qual - Stroke Symptom Onset Unknown: No - VTE Deep Vein Thrombosis/Pulmonary Embolism Present on Admission: No
[2016-07-29] MEDS: 0.9 % SODIUM CHLORIDE 1,000 ML IV SCH (14:05)
[2016-07-29] MEDS: 0.9 % SODIUM CHLORIDE 250 ML IV SCH (18:04)
[2016-07-29] MEDS: SENNOSIDES/DOCUSATE SODIUM 1 TAB TABLET PO SCH (21:09)
[2016-07-29] MEDS: methylPREDNISolone SOD SUCC 40 MG/ML VIAL IV SCH (21:15)
[2016-07-30] MEDS: IPRATROPIUM/ALBUTEROL 3 ML AMPUL.NEB NEB SCH ×6 (02:54→23:19)
[2016-07-30] MEDS: CLINDAMYCIN 600 MG in DEXTROSE 5% IN WATER 50 ML IV SCH ×3 (05:07→21:42)
[2016-07-30] MEDS: 0.9 % SODIUM CHLORIDE 10 ML SYRINGE IV SCH ×3 (05:44→21:43)
[2016-07-30 05:56] LABS: Basophils # (Auto) 0.1 K/mcL (0.0-0.3); Basophils % (Auto) 1.9 % (0.0-2.0); Eosinophils # (Auto) 0 K/mcL (0.0-0.7); Eosinophils % (Auto) 0 % (0.0-7.0); Granulocytes % (Auto) 71.2 % (38.0-78.0); Lymphocytes # (Auto) 0.7 K/mcL (1.5-4.8); Lymphocytes % (Auto) 16.9 % (15.5-49.0); Mean Corpuscular HGB Conc 30.8 g/dL (31.0-36.0); Mean Corpuscular Hemoglobin 31.4 pg (26.0-34.0); Monocytes # (Auto) 0.4 K/mcL (0.1-0.9); Platelet Count 66 K/mcL (140-440); Red Cell Distribution Width 26.3 % (11.5-14.5)
[2016-07-30 06:31] LABS: ALT/SGPT 19 U/l (0-40); Albumin 2.5 gm/dL (3.2-5.2); Albumin/Globulin Ratio 1.5 (1.0-2.3); Alkaline Phosphatase 56 U/L (39-117); Bilirubin,Direct 0.2 mg/dL (0.0-0.3); Blood Urea Nitrogen 33 mg/dl (8-23); Gamma Glutamyl Transpeptidase 6 U/L (5-36); Magnesium 2.3 mg/dL (1.6-2.5); Phosphorous 4.3 mg/dL (2.7-4.5); Uric Acid 3.3 mg/dL (2.5-8.0)
[2016-07-30] MEDS: POTASSIUM CHLORIDE 20 MEQ/15 ML ML PO SCH ×2 (08:03→17:36)
[2016-07-30] MEDS: PANTOPRAZOLE 40 MG VIAL IV SCH (08:03)
[2016-07-30] MEDS: AMIODARONE HCL 200 MG TABLET PO SCH (08:03)
[2016-07-30] MEDS: FLUTICASONE PROPIONATE SPRAY.NAS NS SCH ×2 (09:17→21:43)
[2016-07-30] MEDS: BUDESONIDE 0.5 MG/2 ML AMPUL.NEB NEB SCH ×2 (09:29→21:21)
[2016-07-30] MEDS: DULoxetine 30 MG CAPSULE PO SCH (09:36)
[2016-07-30] MEDS: MULTIVIT,THER IRON,CA,FA & MIN 1 TABLET PO SCH (09:37)
[2016-07-30] MEDS: CASPOFUNGIN ACETATE 50 MG in 0.9 % SODIUM CHLORIDE 250 ML IV SCH (09:37)
[2016-07-30] MEDS: ALPRAZolam 0.5 MG TABLET PO SCH ×2 (09:37→21:42)
[2016-07-30] MEDS: FUROSEMIDE 20 MG TABLET PO SCH (09:37)
[2016-07-30] MEDS: DOCUSATE SODIUM 100 MG CAPSULE PO SCH ×2 (09:37→21:21)
[2016-07-30] MEDS: methylPREDNISolone SOD SUCC 40 MG/ML VIAL IV SCH ×2 (09:38→21:42)
[2016-07-30] MEDS: NEUTRA PHOS 1 PACKET PO SCH ×2 (09:43→21:42)
[2016-07-30] MEDS: FONDAPARINUX SODIUM 2.5 MG/0.5 ML SYRINGE SQ SCH (10:46)
[2016-07-30] MEDS: LACTOBACILLUS 1 CAPSULE PO SCH ×2 (10:46→21:42)
[2016-07-30] MEDS: LENALIDOMIDE 2.5 MG PO SCH (10:49)
--- NOTE | 2016-07-30 11:57 | Internal Med Progress Note ---
Medical - PN: Subj Patient information: Note initiated : 07/30/16 at 11:57 am Service Date, if different from initiated Date: [] Patient: Rochelle Olivas 85 y/o F admitted on 07/21/16 for SOB/Hypoxic Respiratory Failure, Septic Shock, PNA. Chief Complaint: [] Interval history: on service note: history of present illness: 07/21- Patient admitted with septic shock/bilateral pneumonia. Started on vasopressors. nearly obtunded status. On broad antibiotic coverage/noninvasive ventilation in light of hypoxic respiratory failure. Critically ill. Darby 2 score over 20 indicating high-risk mortality. Family aware. patient is no code and hence intubation on an option. aggressive and close hemodynamic monitoring and management in ICU 07/22-patient off pressors. Improving urine output. Off BiPAP and 5 L oxygen. More alert and responsive. still unable to talk in full sentences. Family at bedside. Discussed clinical findings including chest imaging blood gas hemodynamic status with family and plan of care. Patient remains high-risk mortality given massive aspiration with bilateral pneumonia leading to hypoxia respiratory failure. Continue close ICU monitoring 07/23-patient off BiPAP. On 2 L oxygen. More alert and lucid in unresponsive.. Speech therapy ongoing. Complaint of central chest pain on swallowing. On level to nectar hick diet per ST. Esophagram ordered to rule out stenosis as a cause of recurrent aspiration. No overnight fever chills nausea vomiting. afebrile. white count of 4000. Platelets of 139. DC heparin . Started SCDs. case discussed with patient's son and possible transfer to SNF in 48 hours due to significant clinical improvement. Transfer to medical floor in 24 hours. 07/30/16: As noted above, this patient presented to the emergency room on July 21, with bilateral pneumonia and respiratory failure. She was treated aggressively with BiPAP and pulmonary toilet, IV fluids and IV antibiotics. She appears to have had a recurrent aspiration pneumonia. She has been improving fairly steadily although remains extremely weak. she had previously stated she would not accept BiPAP or deep suctioning for her symptoms, but today is feeling like she is getting a bit better, and so she would accept those if they were needed to make her better. -she has continued to have occasional episodes of sudden desaturations, which appear to be consistent with a mucous plug. - several days into her hospital stay, her platelets dropped dramatically. 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 Heparin has been withheld since then, and her platelet count is slowly recovering. There are no overt signs of bleeding. -he patient does have signs and symptoms of aspiration with eating. Barium swallow was ordered, but apparently the hospitalization out of the area and is on back order until about August 04. The patient has been very resistant to following a dysphasia diet with thickened liquids. -the patient also has long-standing myelodysplasia with chronic anemia. She has had some heme positive stools lately, and has been complaining of painful swallowing. There is suspicion of possible Crystal esophagitis. She has been started on treatment for this, and thinks that her odynophagia is a bit improved today. -after discussion with oncology, the patient had Eliquis held, and was continued on a arixtra. today,the patient reports she still feels quite weak, but she does feel that she is a bit better than yesterday. She was able to eat some breakfast yesterday and today, although is not a fan of her choices. She does feel that she is breathing better, and now says that she would probably except suctioning and BiPAP if that was needed to help improve her breathing. I briefly discussed with her whether or not she wants to continue with aggressive care, or consider comfort care, and she indicated that at this time she would like to continue with aggressive care. - - Constitutional Vitals: Vital Signs Temp Pulse Resp BP Pulse Ox 98.9 F 66 13 105/57 93 07/30/16 08:10 07/30/16 11:18 07/30/16 11:18 07/30/16 08:10 07/30/16 09:31 Period Temp Pulse Resp BP Sys/[place] Pulse Ox Last 24 Hr 97.2 F-99.1 F 66-99 11-24 82-105/56-71 91-97 Intake and Output 07/29/16 07/30/16 07/30/16 21:59 05:59 13:59 Intake Total 358 / 358 54 / 54 120 / 120 Output Total 400 / 400 525 / 525 Balance -42 / -42 -471 / -471 120 / 120 Weight 120 lb Intake & Output: Intake & Output 07/29/16 07/30/16 07/30/16 21:59 05:59 13:59 Intake Total 358 / 358 54 / 54 120 / 120 Output Total 400 / 400 525 / 525 Balance -42 / -42 -471 / -471 120 / 120 Weight 120 lb Intake: IV 358 / 358 54 / 54 Sodium Chloride 0.9% 250 250 / 250 ml @ 250 mls/hr IV DAILY TIFFANY with Cancidas 50 mg Rx#:[id number] Dextrose 5% in Water 50 108 / 108 54 / 54 ml @ 100 mls/hr IV Q8H TIFFANY with Cleocin 600 mg Rx#:[id number] Oral 120 / 120 Output: Urine Catheter Amount 400 / 400 525 / 525 Other: Meal Breakfast Percent of Meal Consumed 25% Feeding Ability Needs Supervision # Bowel Movements 1 Exam: on exam, she is a frail, elderly female, who is currently in no acute distress. Neck shows no obvious JVD or lymphadenopathy. Cardiac exam shows irregular irregularrhythm. Lungs: Have markedly decreased breath sounds throughout, althoughbreath sounds anteriorly are better than posteriorly. There are some scattered crackles as well as some scattered expiratory wheezes.Abdomen is soft and nontender. Extremities: Show moderate swelling of her feet and ankles. She has numerous ecchymoses scattered over her lower extremities. Neurologic exam: The patient is fairly alert and cooperative this morning. Medical - PN: Obj Da - Labs CBC & Chem 7: 07/30/16 04:40 07/30/16 04:40 Labs: Abnormal Lab Results 07/30/16 07/30/16 07/29/16 04:40 04:40 04:30 WBC 4.4 L RBC 2.70 L Hgb 8.5 L Hct 27.5 L MCV 102.0 H MCHC 30.8 L RDW 26.3 H Plt Count 66 L MPV 12.6 H Lymph % (Auto) [place] % (Auto) 10.0 H Baso % (Auto) Lymph # 0.7 L Band Neutrophils % Monocytes % (Manual) Reactive Lymphocytes RBC Morphology Anisocytosis Macrocytosis Ovalocytes Sodium 148 H 148 H Carbon Dioxide 38 H 39 H Anion Gap 3.0 L 4.0 L BUN 33 H 27 H Glucose 136 H 133 H Calcium 8.2 L 8.1 L Phosphorus NT-Pro-B Natriuret Pep Total Protein 4.2 L 4.4 L Albumin 2.5 L 2.5 L Globulin 1.7 L 1.9 L 0307/28/16 07/28/16 04:30 07:08 07:08 WBC 4.1 L RBC 2.85 L 3.01 L Hgb 9.0 L 9.5 L Hct 29.0 L 30.7 L MCV 101.8 H 101.9 H MCHC 30.9 L RDW 25.6 H 24.4 H Plt Count 56 L 51 L MPV 13.7 H 12.2 H Lymph % (Auto) 14.8 L [place] % (Auto) 9.8 H Baso % (Auto) 2.1 H Lymph # 0.6 L Band Neutrophils % 19 H Monocytes % (Manual) 11 H Reactive Lymphocytes 3 H RBC Morphology Abnorm A Anisocytosis 2+ A Macrocytosis 1+ A Ovalocytes 1+ A Sodium Carbon Dioxide 42 H* Anion Gap 2.0 L BUN 25 H Glucose Calcium 8.0 L Phosphorus NT-Pro-B Natriuret Pep Total Protein 4.6 L Albumin 2.5 L Globulin 2.1 L 07/27/16 07/27/16 07/27/16 17:30 17:30 17:30 WBC 4.3 L RBC 3.11 L Hgb 9.7 L Hct 31.0 L MCV MCHC RDW 24.9 H Plt Count 48 L* MPV 10.7 H Lymph % (Auto) [place] % (Auto) 10.5 H Baso % (Auto) 3.9 H Lymph # 0.8 L Band Neutrophils % Monocytes % (Manual) Reactive Lymphocytes RBC Morphology Anisocytosis Macrocytosis Ovalocytes Sodium Carbon Dioxide 39 H Anion Gap 5.0 L BUN 26 H Glucose 159 H Calcium 7.9 L Phosphorus 2.6 L NT-Pro-B Natriuret Pep 8501.0 H Total Protein 4.7 L Albumin 2.5 L Globulin heparin-induced antibody screens are both negative. Blood cultures are negative so far. chest x-ray from July 27, 2016: Shows moderate right and small left basilar consolidated infiltrates and effusions worsening since 4 days prior to that. Consistent with aspiration. Nasal swab is positive for MRSA. Meds: Medications Acetaminophen (Tylenol) 650 mg PO Q4-6HP PRN PRN Reason: PAIN/FEVER > 101 Albuterol/Ipratropium (Duoneb) 3 ml NEB Q4HRT TIFFANY Last Admin: 07/30/16 11:14 Dose: 3 ml Alprazolam (Xanax) 0.5 mg PO BID [facility] Last Admin: 07/30/16 09:37 Dose: 0.5 mg Amiodarone HCl (Cordarone) 100 mg PO [facility] Last Admin: 07/30/16 08:03 Dose: 100 mg Bisacodyl (Dulcolax) 10 mg MI Q2-3DAYS PRN PRN Reason: Constipation Budesonide (Pulmicort) 0.5 mg NEB Q12 [facility] Last Admin: 07/30/16 09:29 Dose: 0.5 mg Docusate Sodium (Colace) 100 mg PO BID [facility] Last Admin: 07/30/16 09:37 Dose: 100 mg Duloxetine HCl (Cymbalta) 30 mg PO DAILY [facility] Last Admin: 07/30/16 09:36 Dose: 30 mg Fluticasone Propionate (Flonase) 1 spray NS BID [facility] Last Admin: 07/30/16 09:17 Dose: Not Given Fondaparinux (Arixtra) 2.5 mg SQ DAILY [facility] Last Admin: 07/30/16 10:46 Dose: 2.5 mg Furosemide (Lasix) 20 mg PO DAILY [facility] Last Admin: 07/30/16 09:37 Dose: 20 mg Caspofungin 50 mg/ Sodium (Chloride) 250 mls @ 250 mls/hr IV DAILY [facility] Last Admin: 07/30/16 09:37 Dose: 250 mls/hr Clindamycin Phosphate 600 mg/ (Dextrose) 54 mls @ 100 mls/hr IV Q8H [facility] Last Infusion: 07/30/16 05:43 Dose: Infused Magnesium Sulfate (Magnesium Sulfate) 2 gm in 50 mls @ 50 mls/hr IV UD PRN PRN Reason: MG = or < 1.7 Acetaminophen (Ofirmev) 1,000 mg in 100 mls @ 200 mls/hr IV Q6HP PRN PRN Reason: PAIN/FEVER > 101 Iron Carb/Multivit/[employer]/Folic Acid (Multivitamin W/Minerals) 1 tab PO DAILY [facility] Last Admin: 07/30/16 09:37 Dose: 1 tab Lactobacillus Rhamnosus (Culturelle) 1 cap PO BID [facility] Last Admin: 07/30/16 10:46 Dose: 1 cap Magnesium Hydroxide (Milk Of Magnesia) 30 ml PO HSP PRN PRN Reason: Constipation Methylprednisolone Sodium Succinate (Solu-Medrol) 40 mg IV Q12 [facility] Last Admin: 07/30/16 09:38 Dose: 40 mg Ondansetron HCl (Zofran) 4 mg IV Q4-6HP PRN PRN Reason: Nausea And Vomiting Pantoprazole Sodium (Protonix) 40 mg IV QAMAC [facility] Last Admin: 07/30/16 08:03 Dose: 40 mg Lenalidomide ( (Revlimid) 2.5 Mg) 1 dose PO DAILY [facility] Last Admin: 07/30/16 10:49 Dose: 1 dose Potassium Chloride (Klor-Con) 40 meq PO DAILYP PRN PRN Reason: K+ < 3.5 Potassium Chloride (Potassium Chloride) 20 meq PO BIDCC [facility] Last Admin: 07/30/16 08:03 Dose: 20 meq Potassium/Phosphorus/Sodium (Neutra Phos) 2 packet PO BID [facility] Last Admin: 07/30/16 09:43 Dose: 2 packet Senna/Docusate Sodium (Senna Plus Tablet) 1 tab PO HS [facility] Last Admin: 07/29/16 21:09 Dose: Not Given Sodium Chloride (Saline Flush) 10 ml IV Q8 [facility] Last Admin: 07/30/16 05:44 Dose: 10 ml Trazodone HCl (Desyrel) 50 mg PO HSP PRN PRN Reason: Insomnia Medical - PN: A/P - Time Spent With Patient Total time spent is greater than 50% in coordination of care (as documented) at patient's floor/unit and/or counseling patient: - Narrative A/P Narrative: #1. Pulmonary. 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 She has responded to aggressive treatment for her pneumonia and sepsis. She remains quite weak, but oxygen requirements have decreased. Speech therapy has continued to work with her, and recommended a dysphagia type diet, which the patient is resistant to. We have tried to get a barium swallow, but that is on hold for now. -Continue IV clindamycin.-Continue IV site Medrol duo nebs, oxygen for COPD.continue budesonide. #2. Hematology. -The patient had a fairly dramatic drop in platelets, originally thought due to heparin-induced thrombocytopenia. However antibody tests are negative for this. Regardless, platelet count is slowly rebounding off heparin. -Patient has myelodysplasia with chronic anemia. She does have heme positive stools, but has also been on. Hematocrit has been drifting down just a bit, which may be due to frequent blood draws. Hematology apparently advised that she could go back to Eliquis once her platelet count is improved. #3.cardiac. -atrial fibrillation with controlled rate This has been fairly stable. Continue amiodarone. Resume Eliquis at discharge. Next #4. GI. patient has odynophagia, and could very well have candidal esophagitis.she has been started on treatment for this, and symptoms do seem to be improving. #5. CODE STATUS: Patient has a DNR CODE STATUS. Her son requested a meeting today, and I spent about 15 or 20 minutes with him and another family member, going over each of her diagnoses, and current status and prognosis. e would like to continue with current treatment per the patient's wishes. 36. DVT prophylaxis:continue fondaparinux, per hematology. approximately 40 minutes has been spent so far today interviewing and examining the patient, reviewing her chart and test results, and meeting with her family, as well as writing orders. Medical - PN: Qual - Stroke Symptom Onset Unknown: No - VTE Deep Vein Thrombosis/Pulmonary Embolism Present on Admission: No
--- NOTE | 2016-07-30 16:53 | General Surgery Consult Note ---
History of Present Illness Patient information: Note initiated : 07/30/16 at 4:52 pm Service Date, if different from initiated Date: [] Patient: Rochelle Olivas 85 y/o F admitted on 07/21/16 for SOB/Hypoxic Respiratory Failure, Septic Shock, PNA. Chief Complaint: [] Wound Care Services. I saw this patient along with TRINI Guerra Inpatient Wound Care Nurse and Dr. Payan, Hospitalist Physician. Medications and Allergies Home Medications Medication Instructions Recorded Confirmed Type arformoterol 15 mcg/2 mL solution 2 ml INHALATION BID 30 Days 08/06/15 07/21/16 Rx for nebulization budesonide 0.5 mg/2 mL suspension 0.5 mg INHALATION BID 90 Days 08/06/15 Rx for nebulization ferrous sulfate 325 mg (65 mg 325 mg PO BID tab 04/29/16 07/21/16 History iron) tablet ALPRAZolam [Xanax] 0.5 mg PO BID 30 Days 06/03/16 07/21/16 Rx Amiodarone HCl [Pacerone] 100 mg PO DAILY #30 tab 06/03/16 07/21/16 Rx Apixaban [Eliquis] 2.5 mg PO BID #60 tab 06/03/16 07/21/16 Rx DULoxetine [Cymbalta] 30 mg PO DAILY #30 cap 06/03/16 07/21/16 Rx Fluticasone Propionate [Flonase] 1 spray NS BID #1 spray.maury 06/03/16 07/21/16 Rx Furosemide [Lasix] 20 mg PO BID #60 tab 06/03/16 07/21/16 Rx Vitamin D3 2,000 unit PO DAILY #0 tab 06/03/16 07/21/16 Rx ipratropium bromide 0.02 % 2.5 ml INHALATION TID ml 06/10/16 07/21/16 History solution for inhalation lactobacillus combination no.8 3 3,000 mmu cells PO QDAY #14 cap 07/03/16 Rx billion cell capsule Clindamycin HCl [Cleocin] 300 mg PO TID #30 capsule 07/15/16 07/21/16 Rx predniSONE [Prednisone] 20 mg PO QAM 07/21/16 07/21/16 History Allergies Allergy/AdvReac Type Severity Reaction Status Date / Time Penicillins Allergy Severe Difficulty Verified 07/15/16 11:49 Breathing Exam Temp Pulse Resp BP Pulse Ox 98.5 F 85 16 99/57 95 07/30/16 12:00 07/30/16 15:33 07/30/16 15:33 07/30/16 12:00 07/30/16 15:34 - General physical appearance no distress, no pain, cachectic, chronically ill - Eyes PERRL, normal ocular movement - ENT normal pinna, normal nares, normal mucosa, no congestion - Head Head exam IM: Present: atraumatic, normal inspection, normocephalic - Neck no bruits, trachea midline, no lymphadectomy, no venous distension - Cardiovascular Cardiovascular exam IM: Present: normal rate and rhythm - Respiratory normal respiratory effort absent breath sounds: bilateral (Decreased breath sounds at bases.) - Abdomen Abdomen: Present: soft, non tender, bowel sounds - Genitourinary Present: other (Catheter draining clear urine. ) - Integumentary Present: other (Grade i pressure ulcers < 1-2 CM Mid thoracic spine and sacral area. ) - Neurologic Present: other (Moves all extremities , No focal deficits. Peadal edema , symmetrical with skin discolorationof feet and toes bialterally. LOW flow state , ) - Musculoskeletal Present: other (See above / Neuro note. ) - Psychiatric Present: oriented to time, oriented to person, oriented to place, speech is normal Results - Labs 07/31/16 04:50 07/31/16 04:50 Abnormal lab results 07/30/16 07/30/16 Range/Units 04:40 04:40 WBC 4.4 L (4.5-11.0) K/mcL RBC 2.70 L (4.00-5.20) M/mcL Hgb 8.5 L (12.0-15.0) g/dL Hct 27.5 L (36.0-48.0) % MCV 102.0 H (80.0-100.0) fL MCHC 30.8 L (31.0-36.0) g/dL RDW 26.3 H (11.5-14.5) % Plt Count 66 L (140-440) K/mcL MPV 12.6 H (7.4-10.4) fL [place] % (Auto) 10.0 H (1.0-9.0) % Lymph # 0.7 L (1.5-4.8) K/mcL Sodium 148 H (133-145) mmol/L Carbon Dioxide 38 H (22-30) mmol/L Anion Gap 3.0 L (8-16) BUN 33 H (8-23) mg/dl Glucose 136 H (70-105) mg/dL Calcium 8.2 L (8.6-10.4) mg/dl Total Protein 4.2 L (5.9-8.4) gm/dL Albumin 2.5 L (3.2-5.2) gm/dL Globulin 1.7 L (2.2-3.7) gm/dL Diabetes panel 07/30/16 Range/Units 04:40 Sodium 148 H (133-145) mmol/L Potassium 4.4 (3.3-5.1) mmol/L Chloride 107 (96-108) mmol/L Carbon Dioxide 38 H (22-30) mmol/L BUN 33 H (8-23) mg/dl Creatinine 1.0 (0.6-1.1) mg/dl Glucose 136 H (70-105) mg/dL Calcium 8.2 L (8.6-10.4) mg/dl AST 12 (0-37) U/l ALT 19 (0-40) U/l Alkaline Phosphatase 56 (39-117) U/L Total Protein 4.2 L (5.9-8.4) gm/dL Albumin 2.5 L (3.2-5.2) gm/dL Triglycerides 82 (<150) mg/dl Calcium panel 07/30/16 Range/Units 04:40 Calcium 8.2 L (8.6-10.4) mg/dl Phosphorus 4.3 (2.7-4.5) mg/dL Albumin 2.5 L (3.2-5.2) gm/dL Pituitary panel 07/30/16 Range/Units 04:40 Sodium 148 H (133-145) mmol/L Potassium 4.4 (3.3-5.1) mmol/L Chloride 107 (96-108) mmol/L Carbon Dioxide 38 H (22-30) mmol/L BUN 33 H (8-23) mg/dl Creatinine 1.0 (0.6-1.1) mg/dl Glucose 136 H (70-105) mg/dL Calcium 8.2 L (8.6-10.4) mg/dl Adrenal panel 07/30/16 Range/Units 04:40 Sodium 148 H (133-145) mmol/L Potassium 4.4 (3.3-5.1) mmol/L Chloride 107 (96-108) mmol/L Carbon Dioxide 38 H (22-30) mmol/L BUN 33 H (8-23) mg/dl Creatinine 1.0 (0.6-1.1) mg/dl Glucose 136 H (70-105) mg/dL Calcium 8.2 L (8.6-10.4) mg/dl Total Bilirubin 0.7 (0.0-1.0) mg/dL AST 12 (0-37) U/l ALT 19 (0-40) U/l Alkaline Phosphatase 56 (39-117) U/L Total Protein 4.2 L (5.9-8.4) gm/dL Albumin 2.5 L (3.2-5.2) gm/dL All other labs normal. Assessment and Plan (1) Pressure ulcer of back Skin mid thoracic spine and sacral area. Plan: Protective dressing Mepilex bordered foam Change bi weekly. OFF LOADING change position every 2 hrly. NOT to lay patient on back. Status: Chronic Priority: Low Qualifiers: Pressure ulcer stage: stage 1 Qualified Code(s): L89.101 - Pressure ulcer of unspecified part of back, stage 1 (2) Peripheral angiopathy in diseases classified elsewhere Status: Acute Priority: Medium Comment: Protective heel pads and off loading . Will NOT do any NON invasive vascular studies at this time. WIll follow and monitor progress.
[2016-07-30] MEDS: SENNOSIDES/DOCUSATE SODIUM 1 TAB TABLET PO SCH (21:22)
[2016-07-31] MEDS: IPRATROPIUM/ALBUTEROL 3 ML AMPUL.NEB NEB SCH ×7 (03:18→23:28)
[2016-07-31] MEDS: CLINDAMYCIN 600 MG in DEXTROSE 5% IN WATER 50 ML IV SCH ×3 (05:03→22:58)
[2016-07-31 05:36] LABS: Basophils # (Auto) 0 K/mcL (0.0-0.3); Basophils % (Auto) 1.1 % (0.0-2.0); Eosinophils # (Auto) 0 K/mcL (0.0-0.7); Eosinophils % (Auto) 0 % (0.0-7.0); Granulocytes % (Auto) 74.9 % (38.0-78.0); Lymphocytes # (Auto) 0.7 K/mcL (1.5-4.8); Lymphocytes % (Auto) 15.3 % (15.5-49.0); Mean Cell Volume 102.2 fL (80.0-100.0); Mean Corpuscular HGB Conc 30.7 g/dL (31.0-36.0); Mean Corpuscular Hemoglobin 31.4 pg (26.0-34.0); Monocytes # (Auto) 0.4 K/mcL (0.1-0.9); Monocytes % (Auto) 8.7 % (1.0-9.0); Platelet Count 58 K/mcL (140-440); RBC 2.83 M/mcL (4.00-5.20); Red Cell Distribution Width 25.8 % (11.5-14.5)
[2016-07-31 06:38] LABS: ALT/SGPT 19 U/l (0-40); Albumin 2.7 gm/dL (3.2-5.2); Albumin/Globulin Ratio 1.4 (1.0-2.3); Alkaline Phosphatase 56 U/L (39-117); Bilirubin,Direct 0.2 mg/dL (0.0-0.3); Blood Urea Nitrogen 32 mg/dl (8-23); Gamma Glutamyl Transpeptidase 6 U/L (5-36); Magnesium 2.2 mg/dL (1.6-2.5); Phosphorous 4.1 mg/dL (2.7-4.5); Uric Acid 3.2 mg/dL (2.5-8.0)
[2016-07-31] MEDS: 0.9 % SODIUM CHLORIDE 10 ML SYRINGE IV SCH ×3 (06:55→22:40)
[2016-07-31] MEDS: PANTOPRAZOLE 40 MG VIAL IV SCH (06:55)
[2016-07-31] MEDS: BUDESONIDE 0.5 MG/2 ML AMPUL.NEB NEB SCH ×2 (07:35→20:17)
[2016-07-31] MEDS ORDERED: DEXTROSE 5%-1/2NS W/20MEQ KCL 1,000 ML IV SCH (08:00)
[2016-07-31] MEDS: ALPRAZolam 0.5 MG TABLET PO SCH ×3 (09:27→23:14)
[2016-07-31] MEDS: methylPREDNISolone SOD SUCC 40 MG/ML VIAL IV SCH (09:27)
[2016-07-31] MEDS: AMIODARONE HCL 200 MG TABLET PO SCH (09:27)
[2016-07-31] MEDS: DULoxetine 30 MG CAPSULE PO SCH (09:27)
[2016-07-31] MEDS: POTASSIUM CHLORIDE 20 MEQ/15 ML ML PO SCH ×2 (09:27→23:15)
[2016-07-31] MEDS: MULTIVIT,THER IRON,CA,FA & MIN 1 TABLET PO SCH (09:28)
[2016-07-31] MEDS: FUROSEMIDE 20 MG TABLET PO SCH (09:28)
[2016-07-31] MEDS: CASPOFUNGIN ACETATE 50 MG in 0.9 % SODIUM CHLORIDE 250 ML IV SCH (09:28)
[2016-07-31] MEDS: FONDAPARINUX SODIUM 2.5 MG/0.5 ML SYRINGE SQ SCH (09:28)
[2016-07-31] MEDS: LENALIDOMIDE 2.5 MG PO SCH (09:29)
[2016-07-31] MEDS: FLUTICASONE PROPIONATE SPRAY.NAS NS SCH ×2 (09:30→22:40)
[2016-07-31] MEDS: DOCUSATE SODIUM 100 MG CAPSULE PO SCH ×2 (09:30→20:29)
[2016-07-31] MEDS: NEUTRA PHOS 1 PACKET PO SCH ×2 (09:30→20:28)
[2016-07-31] MEDS: LACTOBACILLUS 1 CAPSULE PO SCH ×2 (09:30→20:34)
--- NOTE | 2016-07-31 10:57 | Internal Med Progress Note ---
Medical - PN: Subj Patient information: Note initiated : 07/31/16 at 10:57 am Service Date, if different from initiated Date: [] Patient: Rochelle Olivas 85 y/o F admitted on 07/21/16 for SOB/Hypoxic Respiratory Failure, Septic Shock, PNA. Chief Complaint: [] Interval history: history of present illness: 07/21- Patient admitted with septic shock/bilateral pneumonia. Started on vasopressors. nearly obtunded status. On broad antibiotic coverage/noninvasive ventilation in light of hypoxic respiratory failure. Critically ill. [place] 2 score over 20 indicating high-risk mortality. Family aware. patient is no code and hence intubation on an option. aggressive and close hemodynamic monitoring and management in ICU 07/22-patient off pressors. Improving urine output. Off BiPAP and 5 L oxygen. More alert and responsive. still unable to talk in full sentences. Family at bedside. Discussed clinical findings including chest imaging blood gas hemodynamic status with family and plan of care. Patient remains high-risk mortality given massive aspiration with bilateral pneumonia leading to hypoxia respiratory failure. Continue close ICU monitoring 07/23-patient off BiPAP. On 2 L oxygen. More alert and lucid in unresponsive.. Speech therapy ongoing. Complaint of central chest pain on swallowing. On level to nectar hick diet per ST. Esophagram ordered to rule out stenosis as a cause of recurrent aspiration. No overnight fever chills nausea vomiting. afebrile. white count of 4000. Platelets of 139. DC heparin . Started SCDs. case discussed with patient's son and possible transfer to SNF in 48 hours due to significant clinical improvement. Transfer to medical floor in 24 hours. 07/30/16: As noted above, this patient presented to the emergency room on July 21, with bilateral pneumonia and respiratory failure. She was treated aggressively with BiPAP and pulmonary toilet, IV fluids and IV antibiotics. She appears to have had a recurrent aspiration pneumonia. She has been improving fairly steadily although remains extremely weak. she had previously stated she would not accept BiPAP or deep suctioning for her symptoms, but today is feeling like she is getting a bit better, and so she would accept those if they were needed to make her better. -she has continued to have occasional episodes of sudden desaturations, which appear to be consistent with a mucous plug. - several days into her hospital stay, her platelets dropped dramatically. 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 Heparin has been withheld since then, and her platelet count is slowly recovering. There are no overt signs of bleeding. -he patient does have signs and symptoms of aspiration with eating. Barium swallow was ordered, but apparently the hospitalization out of the area and is on back order until about August 04. The patient has been very resistant to following a dysphasia diet with thickened liquids. -the patient also has long-standing myelodysplasia with chronic anemia. She has had some heme positive stools lately, and has been complaining of painful swallowing. There is suspicion of possible [place] esophagitis. She has been started on treatment for this, and thinks that her odynophagia is a bit improved today. -after discussion with oncology, the patient had Eliquis held, and was continued on a arixtra. today,the patient reports she still feels quite weak, but she does feel that she is a bit better than yesterday. She was able to eat some breakfast yesterday and today, although is not a fan of her choices. She does feel that she is breathing better, and now says that she would probably except suctioning and BiPAP if that was needed to help improve her breathing. I briefly discussed with her whether or not she wants to continue with aggressive care, or consider comfort care, and she indicated that at this time she would like to continue with aggressive care. -07/31/16: today, the patient is feeling more fatigued She was not able to eat much for breakfast today. Her 2 granddaughters are visiting today, and they also noticed that she is quite fatigued. However, when asked about continued aggressive care, the patient says she would like to continue with this. She otherwise denies fever or chills. She's not had any significant coughing episodes or increased dyspnea today. She denies chest pain, abdominal pain, nausea or vomiting, diarrhea or dysuria. -Kidney tests look like she is once again becoming a bit dehydrated, and sodium is also climbed a bit. -platelets have dipped a bit again today. Heparin antibody test were negative. - Constitutional Vitals: Vital Signs Temp Pulse Resp BP Pulse Ox 98.8 F 73 21 104/50 93 07/31/16 07:27 07/31/16 07:35 07/31/16 07:35 07/31/16 07:27 07/31/16 07:35 Period Temp Pulse Resp BP Sys/[place] Pulse Ox Last 24 Hr 98.4 F-98.8 F 66-112 13-21 99-115/50-74 90-96 Intake and Output 07/30/16 07/31/16 07/31/16 21:59 05:59 13:59 Intake Total 294 / 294 304 / 304 150 / 150 Output Total 825 / 825 600 / 600 Balance -531 / -531 -296 / -296 150 / 150 Weight 121 lb Intake & Output: Intake & Output 07/30/16 07/31/16 07/31/16 21:59 05:59 13:59 Intake Total 294 / 294 304 / 304 150 / 150 Output Total 825 / 825 600 / 600 Balance -531 / -531 -296 / -296 150 / 150 Weight 121 lb Intake: IV 54 / 54 54 / 54 Dextrose 5% in Water 50 54 / 54 54 / 54 ml @ 100 mls/hr IV Q8H TIFFANY with Cleocin 600 mg Rx#:[id number] Oral 240 / 240 250 / 250 150 / 150 Output: Urine Catheter Amount 825 / 825 600 / 600 Other: Meal Dinner Breakfast Percent of Meal Consumed 80% 50% Feeding Ability Needs Supervision Needs Supervision Exam: on exam, she does appear fatigued, but otherwise in no acute distress. Neck shows no obvious JVD. Cardiac exam shows an irregularly irregular rhythm. lungs have markedly decreased breath sounds throughout, but otherwise no rales, rhonchi, wheezes are noted. Abdomen is soft and nontender. Extremities show moderate edema of her feet and ankles. Neurologic: The patient does appear fatigued today, but exam is otherwise grossly nonfocal. Medical - PN: Obj Da - Labs CBC & Chem 7: 07/31/16 04:50 07/31/16 04:50 Labs: Abnormal Lab Results 07/31/16 07/31/16 07/30/16 04:50 04:50 04:40 WBC RBC 2.83 L Hgb 8.9 L Hct 28.9 L MCV 102.2 H MCHC 30.7 L RDW 25.8 H Plt Count 58 L MPV Lymph % (Auto) 15.3 L Barber % (Auto) Baso % (Auto) Lymph # 0.7 L Sodium 149 H 148 H Carbon Dioxide 37 H 38 H Anion Gap 6.0 L 3.0 L BUN 32 H 33 H Glucose 132 H 136 H Calcium 8.5 L 8.2 L Total Protein 4.6 L 4.2 L Albumin 2.7 L 2.5 L Globulin 1.9 L 1.7 L 07/30/16 07/29/16 07/29/16 04:40 04:30 04:30 WBC 4.4 L 4.1 L RBC 2.70 L 2.85 L Hgb 8.5 L 9.0 L Hct 27.5 L 29.0 L MCV 102.0 H 101.8 H MCHC 30.8 L RDW 26.3 H 25.6 H Plt Count 66 L 56 L MPV 12.6 H 13.7 H Lymph % (Auto) 14.8 L Barber % (Auto) 10.0 H 9.8 H Baso % (Auto) 2.1 H Lymph # 0.7 L 0.6 L Sodium 148 H Carbon Dioxide 39 H Anion Gap 4.0 L BUN 27 H Glucose 133 H Calcium 8.1 L Total Protein 4.4 L Albumin 2.5 L Globulin 1.9 L heparin-induced antibody screens are both negative. Blood cultures are negative so far. chest x-ray from July 27, 2016: Shows moderate right and small left basilar consolidated infiltrates and effusions worsening since 4 days prior to that. Consistent with aspiration. Nasal swab is positive for MRSA. Meds: Medications Acetaminophen (Tylenol) 650 mg PO Q4-6HP PRN PRN Reason: PAIN/FEVER > 101 Albuterol/Ipratropium (Duoneb) 3 ml NEB Q4HRT [facility] Last Admin: 07/31/16 07:35 Dose: 3 ml Alprazolam (Xanax) 0.5 mg PO BID [facility] Last Admin: 07/31/16 09:27 Dose: 0.5 mg Amiodarone HCl (Cordarone) 100 mg PO [facility] Last Admin: 07/31/16 09:27 Dose: 100 mg Bisacodyl (Dulcolax) 10 mg DC Q2-3DAYS PRN PRN Reason: Constipation Budesonide (Pulmicort) 0.5 mg NEB Q12 [facility] Last Admin: 07/31/16 07:35 Dose: 0.5 mg Docusate Sodium (Colace) 100 mg PO BID [facility] Last Admin: 07/31/16 09:30 Dose: Not Given Duloxetine HCl (Cymbalta) 30 mg PO DAILY [facility] Last Admin: 07/31/16 09:27 Dose: 30 mg Fluticasone Propionate (Flonase) 1 spray NS BID [facility] Last Admin: 07/31/16 09:30 Dose: Not Given Fondaparinux (Arixtra) 2.5 mg SQ DAILY [facility] Last Admin: 07/31/16 09:28 Dose: 2.5 mg Furosemide (Lasix) 20 mg PO DAILY [facility] Last Admin: 07/31/16 09:28 Dose: 20 mg Caspofungin 50 mg/ Sodium (Chloride) 250 mls @ 250 mls/hr IV DAILY [facility] Last Admin: 07/31/16 09:28 Dose: 250 mls/hr Clindamycin Phosphate 600 mg/ (Dextrose) 54 mls @ 100 mls/hr IV Q8H [facility] Last Admin: 07/31/16 05:03 Dose: 100 mls/hr Magnesium Sulfate (Magnesium Sulfate) 2 gm in 50 mls @ 50 mls/hr IV UD PRN PRN Reason: MG = or < 1.7 Acetaminophen (Ofirmev) 1,000 mg in 100 mls @ 200 mls/hr IV Q6HP PRN PRN Reason: PAIN/FEVER > 101 Potassium Chloride/Dextrose/Sod Cl (Dextrose 5%-1/2ns W/20meq Kcl) 1,000 mls @ 50 mls/hr IV .Q20H [facility] Last Admin: 07/31/16 09:31 Dose: 50 mls/hr Iron Carb/Multivit/Ski Gap/Folic Acid (Multivitamin W/Minerals) 1 tab PO DAILY [facility] Last Admin: 07/31/16 09:28 Dose: 1 tab Lactobacillus Rhamnosus (Culturelle) 1 cap PO BID [facility] Last Admin: 07/31/16 09:30 Dose: 1 cap Magnesium Hydroxide (Milk Of Magnesia) 30 ml PO HSP PRN PRN Reason: Constipation Methylprednisolone Sodium Succinate (Solu-Medrol) 40 mg IV Q12 [facility] Last Admin: 07/31/16 09:27 Dose: 40 mg Ondansetron HCl (Zofran) 4 mg IV Q4-6HP PRN PRN Reason: Nausea And Vomiting Pantoprazole Sodium (Protonix) 40 mg IV QAMAC [facility] Last Admin: 07/31/16 06:55 Dose: 40 mg Lenalidomide ( (Revlimid) 2.5 Mg) 1 dose PO DAILY [facility] Last Admin: 07/31/16 09:29 Dose: 1 dose Potassium Chloride (Klor-Con) 40 meq PO DAILYP PRN PRN Reason: K+ < 3.5 Potassium Chloride (Potassium Chloride) 20 meq PO BIDCC [facility] Last Admin: 07/31/16 09:27 Dose: 20 meq Potassium/Phosphorus/Sodium (Neutra Phos) 2 packet PO BID [facility] Last Admin: 07/31/16 09:30 Dose: 2 packet Senna/Docusate Sodium (Senna Plus Tablet) 1 tab PO HS [facility] Last Admin: 07/30/16 21:22 Dose: Not Given Sodium Chloride (Saline Flush) 10 ml IV Q8 [facility] Last Admin: 07/31/16 06:55 Dose: 10 ml Trazodone HCl (Desyrel) 50 mg PO HSP PRN PRN Reason: Insomnia Medical - PN: A/P - Time Spent With Patient Total time spent is greater than 50% in coordination of care (as documented) at patient's floor/unit and/or counseling patient: - Narrative A/P Narrative: #1. Pulmonary. 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 She has responded to aggressive treatment for her pneumonia and sepsis. She remains quite weak, but oxygen requirements have decreased. Speech therapy has continued to work with her, and recommended a dysphagia type diet, which the patient is resistant to. We have tried to get a barium swallow, but that is on hold for now. -Continue IV clindamycin.-Continue IV solu-Medrol, duo nebs, oxygen for COPD.continue budesonide. #2. Hematology. -The patient had a fairly dramatic drop in platelets, originally thought due to heparin-induced thrombocytopenia. However antibody tests are negative for this. Regardless, platelet count is slowly rebounding off heparin. -Patient has myelodysplasia with chronic anemia. She does have heme positive stools, but has also been on iron. Hematocrit has been drifting down just a bit , which may be due to frequent blood draws. Hematology apparently advised that she could go back to [facility] once her platelet count is improved. -we will continue to observe in the hospital until she makes more of a recovery with her platelets. If the overall trend is not upwards over the next couple of days, I will contact hematology once again. #3.cardiac. -atrial fibrillation with controlled rate This has been fairly stable. Continue amiodarone. Resume Eliquis at discharge. #4. GI. patient has odynophagia, and could very well have candidal esophagitis.she has been started on treatment for this, and symptoms do seem to be improving. #5. CODE STATUS: Patient has a DNR CODE STATUS. She would like to continue with current treatment . #6. DVT prophylaxis:continue fondaparinux, per hematology. #7. I also reviewed her skin findings with Dr. Mendenhall of wound care. He thinks are swollen feet and skin changes are primarily due to a low flow state, and just recommends foot elevation, and nothing else more aggressive. #8. Renal. B UN is climbing a bit, and I suspect she is not taking an oral adequateintake. I have started low flow IV fluids, but again discuss this with her family, saying thisis likely to be a chronic problem. #9. Disposition: if there is not much change in her status over the next few days, we will likely transition her back to senior care care. Again, depending on her progress, we ay need to re-address moving to a comfort care status. approximately 30 minutes has been spent so far today interviewing and examining the patient, reviewing her chart and test results, and meeting with her family, as well as writing orders. Medical - PN: Qual - Stroke Symptom Onset Unknown: No - VTE Deep Vein Thrombosis/Pulmonary Embolism Present on Admission: No
[2016-07-31] MEDS ORDERED: ACETAMINOPHEN 1,000 MG/100 ML BOTTLE IV PRN (14:59)
[2016-07-31] MEDS ORDERED: BISACODYL 10 MG SUPP.RECT PR PRN (14:59)
[2016-07-31] MEDS ORDERED: MAGNESIUM SULFATE 2 GM/50 ML BAG IV PRN (14:59)
[2016-07-31] MEDS ORDERED: ACETAMINOPHEN 325 MG TABLET PO PRN (14:59)
[2016-07-31] MEDS ORDERED: ONDANSETRON 4 MG/2 ML VIAL IV PRN (14:59)
--- NOTE | 2016-07-31 17:23 | General Surgery Progress Note ---
Subjective Patient reports: other (Patient is now on regular MED SURG floor. ) Narrative: Note initiated : 07/31/16 at 5:21 pm Service Date, if different from initiated Date: [] Patient: Rochelle Olivas 85 y/o F admitted on 07/21/16 for SOB/Hypoxic Respiratory Failure, Septic Shock, PNA. Chief Complaint: [] Objective Temp Pulse Resp BP Pulse Ox 98.6 F 92 H 18 99/57 91 07/31/16 16:00 07/31/16 16:00 07/31/16 16:00 07/31/16 16:00 07/31/16 16:00 AVSS. AAOx3 HD stable and Lucid and conversational. L/E. Both legs and feet are warm and dry . Toes PWD. Sacral / Back skin site abrasions are dry and healing well. Off loaded and Padded. - Additional Data Intake & Output - Last 24 hours: Intake & Output 07/29/16 07/30/16 07/31/16 08/01/16 05:59 05:59 05:59 05:59 Intake Total 108 / 108 886 / 886 1142 / 1142 500 / 500 Output Total 1770 / 1770 925 / 925 1425 / 1425 700 / 700 Balance -1662 / -1662 -39 / -39 -283 / -283 -200 / -200 Weight 115 lb 1.6 oz 120 lb 121 lb 121 lb - Labs 07/31/16 04:50 07/31/16 04:50 Diabetes panel 07/31/16 Range/Units 04:50 Sodium 149 H (133-145) mmol/L Potassium 4.3 (3.3-5.1) mmol/L Chloride 106 (96-108) mmol/L Carbon Dioxide 37 H (22-30) mmol/L BUN 32 H (8-23) mg/dl Creatinine 1.0 (0.6-1.1) mg/dl Glucose 132 H (70-105) mg/dL Calcium 8.5 L (8.6-10.4) mg/dl AST 10 (0-37) U/l ALT 19 (0-40) U/l Alkaline Phosphatase 56 (39-117) U/L Total Protein 4.6 L (5.9-8.4) gm/dL Albumin 2.7 L (3.2-5.2) gm/dL Triglycerides 93 (<150) mg/dl Calcium panel 07/31/16 Range/Units 04:50 Calcium 8.5 L (8.6-10.4) mg/dl Phosphorus 4.1 (2.7-4.5) mg/dL Albumin 2.7 L (3.2-5.2) gm/dL Pituitary panel 07/31/16 Range/Units 04:50 Sodium 149 H (133-145) mmol/L Potassium 4.3 (3.3-5.1) mmol/L Chloride 106 (96-108) mmol/L Carbon Dioxide 37 H (22-30) mmol/L BUN 32 H (8-23) mg/dl Creatinine 1.0 (0.6-1.1) mg/dl Glucose 132 H (70-105) mg/dL Calcium 8.5 L (8.6-10.4) mg/dl Adrenal panel 07/31/16 Range/Units 04:50 Sodium 149 H (133-145) mmol/L Potassium 4.3 (3.3-5.1) mmol/L Chloride 106 (96-108) mmol/L Carbon Dioxide 37 H (22-30) mmol/L BUN 32 H (8-23) mg/dl Creatinine 1.0 (0.6-1.1) mg/dl Glucose 132 H (70-105) mg/dL Calcium 8.5 L (8.6-10.4) mg/dl Total Bilirubin 0.7 (0.0-1.0) mg/dL AST 10 (0-37) U/l ALT 19 (0-40) U/l Alkaline Phosphatase 56 (39-117) U/L Total Protein 4.6 L (5.9-8.4) gm/dL Albumin 2.7 L (3.2-5.2) gm/dL Medical - PN: A/P - Time Spent With Patient Total time spent is greater than 50% in coordination of care (as documented) at patient's floor/unit and/or counseling patient: less than 15 minutes (Satisfactory progress from wound care point of view. Continue current treatment.) (1) Pressure ulcer of back Status: Chronic Current Visit: Yes (2) Peripheral angiopathy in diseases classified elsewhere Problem details: Protective heel pads and off loading . Will NOT do any NON invasive vascular studies at this time. WIll follow and monitor progress. Status: Acute Current Visit: Yes
[2016-07-31] MEDS: SENNOSIDES/DOCUSATE SODIUM 1 TAB TABLET PO SCH (19:48)
[2016-07-31] MEDS: predniSONE 20 MG TABLET PO SCH (19:48)
[2016-07-31] MEDS: ALBUTEROL SULFATE 2.5 MG/3 ML NEBULIZER NEB PRN ×2 (20:17→22:35)
[2016-07-31] MEDS ORDERED: traZODone HCL 50 MG TABLET PO PRN (21:00)
[2016-07-31] MEDS ORDERED: MAGNESIUM HYDROXIDE 30 ML ORAL.SUSP PO PRN (21:00)
[2016-07-31] MEDS ORDERED: ALBUTEROL SULFATE 2.5 MG/3 ML NEBULIZER ONE (22:20)
[2016-07-31] MEDS ORDERED: FUROSEMIDE 20 MG/2 ML VIAL IV ONE ×2 (22:50→22:55)
[2016-07-31] MEDS: DEXTROSE 5%-1/2NS W/20MEQ KCL 1,000 ML IV SCH (23:16)
[2016-08-01] MEDS: ALBUTEROL SULFATE 2.5 MG/3 ML NEBULIZER NEB PRN ×3 (00:45→06:09)
[2016-08-01] MEDS: IPRATROPIUM/ALBUTEROL 3 ML AMPUL.NEB NEB SCH ×6 (02:54→23:19)
[2016-08-01] MEDS: 0.9 % SODIUM CHLORIDE 10 ML SYRINGE IV SCH ×3 (06:14→23:02)
[2016-08-01] MEDS: CLINDAMYCIN 600 MG in DEXTROSE 5% IN WATER 50 ML IV SCH ×3 (06:14→22:30)
[2016-08-01 06:45] LABS: Basophils # (Auto) 0 K/mcL (0.0-0.3); Basophils % (Auto) 0.8 % (0.0-2.0); Eosinophils # (Auto) 0 K/mcL (0.0-0.7); Eosinophils % (Auto) 0.3 % (0.0-7.0); Granulocytes % (Auto) 77.5 % (38.0-78.0); Lymphocytes # (Auto) 0.5 K/mcL (1.5-4.8); Lymphocytes % (Auto) 12.1 % (15.5-49.0); Mean Cell Volume 102.1 fL (80.0-100.0); Mean Corpuscular Hemoglobin 31.6 pg (26.0-34.0); Monocytes # (Auto) 0.4 K/mcL (0.1-0.9); Monocytes % (Auto) 9.3 % (1.0-9.0); Platelet Count 63 K/mcL (140-440); RBC 2.78 M/mcL (4.00-5.20); Red Cell Distribution Width 25.3 % (11.5-14.5)
[2016-08-01] MEDS: PANTOPRAZOLE 40 MG VIAL IV SCH (07:17)
[2016-08-01] MEDS: AMIODARONE HCL 200 MG TABLET PO SCH (07:17)
[2016-08-01] MEDS: POTASSIUM CHLORIDE 20 MEQ/15 ML ML PO SCH ×2 (07:17→17:52)
[2016-08-01 07:34] LABS: ALT/SGPT 20 U/l (0-40); Albumin 2.7 gm/dL (3.2-5.2); Albumin/Globulin Ratio 1.4 (1.0-2.3); Alkaline Phosphatase 57 U/L (39-117); Bilirubin,Direct < 0.2 mg/dL (0.0-0.3); Blood Urea Nitrogen 31 mg/dl (8-23); Gamma Glutamyl Transpeptidase 5 U/L (5-36); Magnesium 2.2 mg/dL (1.6-2.5); Phosphorous 3.5 mg/dL (2.7-4.5); Uric Acid 3.1 mg/dL (2.5-8.0)
[2016-08-01] MEDS: BUDESONIDE 0.5 MG/2 ML AMPUL.NEB NEB SCH ×2 (07:49→21:10)
[2016-08-01] MEDS: LENALIDOMIDE 2.5 MG PO SCH (07:59)
[2016-08-01] MEDS: FONDAPARINUX SODIUM 2.5 MG/0.5 ML SYRINGE SQ SCH (07:59)
[2016-08-01] MEDS: predniSONE 20 MG TABLET PO SCH ×2 (08:00→19:19)
[2016-08-01] MEDS: DULoxetine 30 MG CAPSULE PO SCH (08:01)
[2016-08-01] MEDS: LACTOBACILLUS 1 CAPSULE PO SCH ×2 (08:01→19:21)
[2016-08-01] MEDS: FUROSEMIDE 20 MG TABLET PO SCH (08:01)
[2016-08-01] MEDS: DOCUSATE SODIUM 100 MG CAPSULE PO SCH ×2 (08:01→19:20)
[2016-08-01] MEDS: NEUTRA PHOS 1 PACKET PO SCH ×2 (08:01→19:21)
[2016-08-01] MEDS: MULTIVIT,THER IRON,CA,FA & MIN 1 TABLET PO SCH (08:02)
[2016-08-01] MEDS: FLUTICASONE PROPIONATE SPRAY.NAS NS SCH ×2 (08:03→19:21)
[2016-08-01] MEDS: ALPRAZolam 0.5 MG TABLET PO SCH ×3 (08:06→19:20)
[2016-08-01] MEDS: DEXTROSE 5%-1/2NS W/20MEQ KCL 1,000 ML IV SCH ×2 (08:33→10:25)
[2016-08-01] MEDS: CASPOFUNGIN ACETATE 50 MG in 0.9 % SODIUM CHLORIDE 250 ML IV SCH (08:33)
--- NOTE | 2016-08-01 08:36 | XRay Report ---
CLINICAL INFORMATION: Shortness of breath and hypoxia COMPARISON: 07/27/2016 FINDINGS: Moderate cardiomegaly is unchanged. Mitral annular calcification noted. Mediastinum is unremarkable. Upper lobe pulmonary vessels are slightly distended. Moderate bibasilar infiltrates and small effusions again noted. Slight improvement on the right side since yesterday. IMPRESSION: Moderate bibasilar infiltrates and small effusion with slight improved aeration on the right side consider aspiration Mild underlying CHF or volume overload Interpreted and Authenticated by: Jamie Oropeza 08/01/16
--- NOTE | 2016-08-01 11:57 | General Surgery Progress Note ---
Subjective Patient reports: no new complaints, other (More alert and conversational this morning. Her son came to visit her today. ) Narrative: Note initiated : 08/01/16 at 11:54 am Service Date, if different from initiated Date: [] Patient: Rochelle Olivas 85 y/o F admitted on 07/21/16 for SOB/Hypoxic Respiratory Failure, Septic Shock, PNA. Chief Complaint: [] Objective Temp Pulse Resp BP Pulse Ox 95.6 F L 100 H 22 107/70 83 L 08/01/16 07:57 08/01/16 11:46 08/01/16 11:46 08/01/16 07:57 08/01/16 07:57 AVSS. No changed in clinical examination . On O2 AM. Both feet are warm dry and covered. Edema is less. Back wound dressing is clean and dry. - Additional Data Intake & Output - Last 24 hours: Intake & Output 07/30/16 07/31/16 08/01/16 08/02/16 05:59 05:59 05:59 06:59 Intake Total 886 / 886 1142 / 1142 554 / 554 Output Total 925 / 925 1425 / 1425 1775 / 1775 Balance -39 / -39 -283 / -283 -1221 / -1221 Weight 120 lb 121 lb 124 lb - Labs 08/01/16 05:35 08/01/16 05:35 Diabetes panel 08/01/16 Range/Units 05:35 Sodium 149 H (133-145) mmol/L Potassium 4.3 (3.3-5.1) mmol/L Chloride 104 (96-108) mmol/L Carbon Dioxide 36 H (22-30) mmol/L BUN 31 H (8-23) mg/dl Creatinine 0.9 (0.6-1.1) mg/dl Glucose 173 H (70-105) mg/dL Calcium 8.5 L (8.6-10.4) mg/dl AST 17 (0-37) U/l ALT 20 (0-40) U/l Alkaline Phosphatase 57 (39-117) U/L Total Protein 4.7 L (5.9-8.4) gm/dL Albumin 2.7 L (3.2-5.2) gm/dL Triglycerides 95 (<150) mg/dl Calcium panel 08/01/16 Range/Units 05:35 Calcium 8.5 L (8.6-10.4) mg/dl Phosphorus 3.5 (2.7-4.5) mg/dL Albumin 2.7 L (3.2-5.2) gm/dL Pituitary panel 08/01/16 Range/Units 05:35 Sodium 149 H (133-145) mmol/L Potassium 4.3 (3.3-5.1) mmol/L Chloride 104 (96-108) mmol/L Carbon Dioxide 36 H (22-30) mmol/L BUN 31 H (8-23) mg/dl Creatinine 0.9 (0.6-1.1) mg/dl Glucose 173 H (70-105) mg/dL Calcium 8.5 L (8.6-10.4) mg/dl Adrenal panel 08/01/16 Range/Units 05:35 Sodium 149 H (133-145) mmol/L Potassium 4.3 (3.3-5.1) mmol/L Chloride 104 (96-108) mmol/L Carbon Dioxide 36 H (22-30) mmol/L BUN 31 H (8-23) mg/dl Creatinine 0.9 (0.6-1.1) mg/dl Glucose 173 H (70-105) mg/dL Calcium 8.5 L (8.6-10.4) mg/dl Total Bilirubin 0.7 (0.0-1.0) mg/dL AST 17 (0-37) U/l ALT 20 (0-40) U/l Alkaline Phosphatase 57 (39-117) U/L Total Protein 4.7 L (5.9-8.4) gm/dL Albumin 2.7 L (3.2-5.2) gm/dL Medical - PN: A/P - Time Spent With Patient Total time spent is greater than 50% in coordination of care (as documented) at patient's floor/unit and/or counseling patient: less than 15 minutes (Stable from wound care point of view. Following patient. If progressing well CONSIDER Sensilase peripheral vascular arterial studies at bed side after the week end.) (1) Pressure ulcer of back Status: Chronic Current Visit: Yes (2) Peripheral angiopathy in diseases classified elsewhere Problem details: Protective heel pads and off loading . Will NOT do any NON invasive vascular studies at this time. WIll follow and monitor progress. Status: Acute Current Visit: Yes
--- NOTE | 2016-08-01 13:31 | Internal Med Progress Note ---
Medical - PN: Subj Patient information: Note initiated : 08/01/16 at 1:31 pm Service Date, if different from initiated Date: [] Patient: Rochelle Olivas 85 y/o F admitted on 07/21/16 for SOB/Hypoxic Respiratory Failure, Septic Shock, PNA. Chief Complaint: [] Interval history: history of present illness: 07/21- Patient admitted with septic shock/bilateral pneumonia. Started on vasopressors. nearly obtunded status. On broad antibiotic coverage/noninvasive ventilation in light of hypoxic respiratory failure. Critically ill. [place] 2 score over 20 indicating high-risk mortality. Family aware. patient is no code and hence intubation on an option. aggressive and close hemodynamic monitoring and management in ICU 07/22-patient off pressors. Improving urine output. Off BiPAP and 5 L oxygen. More alert and responsive. still unable to talk in full sentences. Family at bedside. Discussed clinical findings including chest imaging blood gas hemodynamic status with family and plan of care. Patient remains high-risk mortality given massive aspiration with bilateral pneumonia leading to hypoxia respiratory failure. Continue close ICU monitoring 07/23-patient off BiPAP. On 2 L oxygen. More alert and lucid in unresponsive.. Speech therapy ongoing. Complaint of central chest pain on swallowing. On level to nectar hick diet per ST. Esophagram ordered to rule out stenosis as a cause of recurrent aspiration. No overnight fever chills nausea vomiting. afebrile. white count of 4000. Platelets of 139. DC heparin . Started SCDs. case discussed with patient's son and possible transfer to SNF in 48 hours due to significant clinical improvement. Transfer to medical floor in 24 hours. 07/30/16: As noted above, this patient presented to the emergency room on July 21, with bilateral pneumonia and respiratory failure. She was treated aggressively with BiPAP and pulmonary toilet, IV fluids and IV antibiotics. She appears to have had a recurrent aspiration pneumonia. She has been improving fairly steadily although remains extremely weak. she had previously stated she would not accept BiPAP or deep suctioning for her symptoms, but today is feeling like she is getting a bit better, and so she would accept those if they were needed to make her better. -she has continued to have occasional episodes of sudden desaturations, which appear to be consistent with a mucous plug. - several days into her hospital stay, her platelets dropped dramatically. 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 Heparin has been withheld since then, and her platelet count is slowly recovering. There are no overt signs of bleeding. -he patient does have signs and symptoms of aspiration with eating. Barium swallow was ordered, but apparently the hospitalization out of the area and is on back order until about August 04. The patient has been very resistant to following a dysphasia diet with thickened liquids. -the patient also has long-standing myelodysplasia with chronic anemia. She has had some heme positive stools lately, and has been complaining of painful swallowing. There is suspicion of possible [place] esophagitis. She has been started on treatment for this, and thinks that her odynophagia is a bit improved today. -after discussion with oncology, the patient had Eliquis held, and was continued on a arixtra. today,the patient reports she still feels quite weak, but she does feel that she is a bit better than yesterday. She was able to eat some breakfast yesterday and today, although is not a fan of her choices. She does feel that she is breathing better, and now says that she would probably except suctioning and BiPAP if that was needed to help improve her breathing. I briefly discussed with her whether or not she wants to continue with aggressive care, or consider comfort care, and she indicated that at this time she would like to continue with aggressive care. -07/31/16: today, the patient is feeling more fatigued She was not able to eat much for breakfast today. Her 2 granddaughters are visiting today, and they also noticed that she is quite fatigued. However, when asked about continued aggressive care, the patient says she would like to continue with this. She otherwise denies fever or chills. She's not had any significant coughing episodes or increased dyspnea today. She denies chest pain, abdominal pain, nausea or vomiting, diarrhea or dysuria. -Kidney tests look like she is once again becoming a bit dehydrated, and sodium is also climbed a bit. -platelets have dipped a bit again today. Heparin antibody test were negative. 08/01/16: Last night, the patient had a sudden decline in her respiratory status , with dropping O2 saturations and decreased responsiveness. Oxygenation gradually improved after receiving 2 nebulizer treatments, but she was maintained on a 7-8L mask overnight. This morning she is feeling a bit better. She denies fever or chills significant cough or increase in her usual baseline shortness of breath. She denies GI or symptoms. She still really has no appetite. chest x-ray last night continued to show by basilar infiltrates, as well as possible mildpulmonary vascular congestion. - Constitutional Vitals: Vital Signs Temp Pulse Resp BP Pulse Ox 96.0 F L 101 H 24 107/70 96 08/01/16 12:00 08/01/16 12:00 08/01/16 12:00 08/01/16 07:57 08/01/16 12:00 Period Temp Pulse Resp BP Sys/[place] Pulse Ox Last 24 Hr 95.6 F-98.6 F 89-119 18-24 95-116/57-81 82-100 Intake and Output 07/31/16 08/01/16 08/01/16 21:59 05:59 13:59 Intake Total 200 / 200 54 / 54 Output Total 700 / 700 1075 / 1075 Balance -500 / -500 -1021 / -1021 Weight 124 lb Intake & Output: Intake & Output 07/31/16 08/01/16 08/01/16 21:59 05:59 13:59 Intake Total 200 / 200 54 / 54 Output Total 700 / 700 1075 / 1075 Balance -500 / -500 -1021 / -1021 Weight 124 lb Intake: IV 54 / 54 Dextrose 5% in Water 50 54 / 54 ml @ 100 mls/hr IV Q8H TIFFANY with Cleocin 600 mg Rx#:[id number] Oral 200 / 200 Output: Urine Catheter Amount 700 / 700 1075 / 1075 Exam: on exam,the patient appears quite fatigued. She is otherwise in no acute distress. Neck shows no obvious JVD. Cardiac exam shows regular rate and rhythm. Lung exam show markedly decreased breath sounds throughout, but some definite crackles at the left base. Abdomen is soft and nontender. Extremities show no significant edema. On neurologic exam patient is awake and alert, and exam is grossly nonfocal. Medical - PN: Obj Da - Labs CBC & Chem 7: 08/01/16 05:35 08/01/16 05:35 Labs: Abnormal Lab Results 08/01/16 08/01/16 07/31/16 05:35 05:35 04:50 WBC 4.0 L RBC 2.78 L Hgb 8.8 L Hct 28.4 L MCV 102.1 H MCHC RDW 25.3 H Plt Count 63 L MPV 10.6 H Lymph % (Auto) 12.[address] [place] % (Auto) 9.3 H Lymph # 0.5 L Sodium 149 H 149 H Carbon Dioxide 36 H 37 H Anion Gap 6.0 L BUN 31 H 32 H Glucose 173 H 132 H Calcium 8.5 L 8.5 L Total Protein 4.7 L 4.6 L Albumin 2.7 L 2.7 L Globulin 2.0 L 1.9 L 07/31/16 07/30/16 07/30/16 04:50 04:40 04:40 WBC 4.4 L RBC 2.83 L 2.70 L Hgb 8.9 L 8.5 L Hct 28.9 L 27.5 L MCV 102.2 H 102.0 H MCHC 30.7 L 30.8 L RDW 25.8 H 26.3 H Plt Count 58 L 66 L MPV 12.6 H Lymph % (Auto) 15.[address] [place] % (Auto) 10.0 H Lymph # 0.7 L 0.7 L Sodium 148 H Carbon Dioxide 38 H Anion Gap 3.0 L BUN 33 H Glucose 136 H Calcium 8.2 L Total Protein 4.2 L Albumin 2.5 L Globulin 1.7 L 07/31/16: Portable chest x-ray: Shows moderate bibasilar infiltrates and small effusion with slight improvement on the right side. Consider aspiration. Mild underlying CHF. heparin-induced antibody screens are both negative. Blood cultures are negative so far. chest x-ray from July 27, 2016: Shows moderate right and small left basilar consolidated infiltrates and effusions worsening since 4 days prior to that. Consistent with aspiration. Nasal swab is positive for MRSA. Meds: Medications Acetaminophen (Tylenol) 650 mg PO Q4-6HP PRN PRN Reason: PAIN/FEVER > 101 Albuterol Sulfate (Ventolin) 2.5 mg NEB Q1HP PRN PRN Reason: Shortness Of Breath Last Admin: 08/01/16 06:09 Dose: 2.5 mg Albuterol/Ipratropium (Duoneb) 3 ml NEB Q4HRT [facility] Last Admin: 08/01/16 11:46 Dose: 3 ml Alprazolam (Xanax) 0.5 mg PO BID [facility] Last Admin: 08/01/16 08:15 Dose: 0.5 mg Amiodarone HCl (Cordarone) 100 mg PO [facility] Last Admin: 08/01/16 07:17 Dose: 100 mg Bisacodyl (Dulcolax) 10 mg PA Q2-3DAYS PRN PRN Reason: Constipation Budesonide (Pulmicort) 0.5 mg NEB Q12 [facility] Last Admin: 08/01/16 07:49 Dose: 0.5 mg Docusate Sodium (Colace) 100 mg PO BID [facility] Last Admin: 08/01/16 08:01 Dose: 100 mg Duloxetine HCl (Cymbalta) 30 mg PO DAILY [facility] Last Admin: 08/01/16 08:01 Dose: 30 mg Fluticasone Propionate (Flonase) 1 spray NS BID [facility] Last Admin: 08/01/16 08:03 Dose: Not Given Fondaparinux (Arixtra) 2.5 mg SQ DAILY [facility] Last Admin: 08/01/16 07:59 Dose: 2.5 mg Furosemide (Lasix) 20 mg PO DAILY [facility] Last Admin: 08/01/16 08:01 Dose: 20 mg Caspofungin 50 mg/ Sodium (Chloride) 250 mls @ 250 mls/hr IV DAILY [facility] Last Admin: 08/01/16 08:33 Dose: 250 mls/hr Clindamycin Phosphate 600 mg/ (Dextrose) 54 mls @ 100 mls/hr IV Q8H [facility] Last Admin: 08/01/16 06:14 Dose: 100 mls/hr Potassium Chloride/Dextrose/Sod Cl (Dextrose 5%-1/2ns W/20meq Kcl) 1,000 mls @ 50 mls/hr IV .Q20H [facility] Last Admin: 08/01/16 10:25 Dose: Not Given Magnesium Sulfate (Magnesium Sulfate) 2 gm in 50 mls @ 50 mls/hr IV UD PRN PRN Reason: MG = or < 1.7 Acetaminophen (Ofirmev) 1,000 mg in 100 mls @ 200 mls/hr IV Q6HP PRN PRN Reason: PAIN/FEVER > 101 Iron Carb/Multivit/[place]/Folic Acid (Multivitamin W/Minerals) 1 tab PO DAILY [facility] Last Admin: 08/01/16 08:02 Dose: 1 tab Lactobacillus Rhamnosus (Culturelle) 1 cap PO BID [facility] Last Admin: 08/01/16 08:01 Dose: 1 cap Magnesium Hydroxide (Milk Of Magnesia) 30 ml PO HSP PRN PRN Reason: Constipation Ondansetron HCl (Zofran) 4 mg IV Q4-6HP PRN PRN Reason: Nausea And Vomiting Pantoprazole Sodium (Protonix) 40 mg IV QAMAC [facility] Last Admin: 08/01/16 07:17 Dose: 40 mg Lenalidomide ( (Revlimid) 2.5 Mg) 1 dose PO DAILY [facility] Last Admin: 08/01/16 07:59 Dose: 1 dose Potassium Chloride (Potassium Chloride) 20 meq PO BIDCC [facility] Last Admin: 08/01/16 07:17 Dose: 20 meq Potassium/Phosphorus/Sodium (Neutra Phos) 2 packet PO BID [facility] Last Admin: 08/01/16 08:01 Dose: 2 packet Prednisone (Prednisone) 50 mg PO BID [facility] Last Admin: 08/01/16 08:00 Dose: 50 mg Senna/Docusate Sodium (Senna Plus Tablet) 1 tab PO HS [facility] Last Admin: 07/31/16 19:48 Dose: 1 tab Sodium Chloride (Saline Flush) 10 ml IV Q8 [facility] Last Admin: 08/01/16 06:14 Dose: 10 ml Trazodone HCl (Desyrel) 50 mg PO HSP PRN PRN Reason: Insomnia Medical - PN: A/P - Time Spent With Patient Total time spent is greater than 50% in coordination of care (as documented) at patient's floor/unit and/or counseling patient: - Narrative A/P Narrative: #1. Pulmonary. 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 She has responded to aggressive treatment for her pneumonia and sepsis. She remains quite weak, but oxygen requirements have decreased. Speech therapy has continued to work with her, and recommended a dysphagia type diet, which the patient is resistant to. We have tried to get a barium swallow, but that is on hold for now. -the patient appears to be declining slowly over the last several days. i discussed this with her son, and we again discussedthat aggressive measures probably are not appropriate. He would like us to continue with current care for now with a tentative plan to transfer her back to her assisted on Wednesday and again discuss comfort care. -Continue IV clindamycin.-Continue IV solu-Medrol, duo nebs, oxygen for COPD.continue budesonide. #2. Hematology. -The patient had a fairly dramatic drop in platelets, originally thought due to heparin-induced thrombocytopenia. However antibody tests are negative for this. Regardless, platelet count is slowly rebounding off heparin. -Patient has myelodysplasia with chronic anemia. She does have heme positive stools, but has also been on iron. Hematocrit has been drifting down just a bit , which may be due to frequent blood draws. Hematology apparently advised that she could go back to Eliquis once her platelet count is improved. -we will continue to observe in the hospital until she makes more of a recovery with her platelets. If the overall trend is not upwards over the next couple of days, I will contact hematology once again. #3.cardiac. -atrial fibrillation with controlled rate This has been fairly stable. Continue amiodarone. Resume Eliquis at discharge. #4. GI. patient has odynophagia, and could very well have candidal esophagitis.she has been started on treatment for this, and symptoms do seem to be improving. #5. CODE STATUS: Patient has a DNR CODE STATUS. She would like to continue with current treatment . #6. DVT prophylaxis:continue fondaparinux, per hematology. #7. I also reviewed her skin findings with Dr. Mendenhall of wound care. He thinks are swollen feet and skin changes are primarily due to a low flow state, and just recommends foot elevation, and nothing else more aggressive. #8. Renal. BUN/creatinine creatinine crept up a bit, and I did start IV fluids yesterday. However she may not be able to handle even small amounts of IV fluids, given her tenuous cardiac and pulmonary status, and low protein levels. these will be discontinued, and I discussed with she and her son that she will just have to eat and drink as much as she feels up to. #9. Disposition: if there is not much change in her status over the next few days, we will likely transition her back to assisted care. Again, depending on her progress, we ay need to re-address moving to a comfort care status. approximately 30 minutes has been spent so far today interviewing and examining the patient, reviewing her chart and test results, and meeting with her family, as well as writing orders. Medical - PN: Qual - Stroke Symptom Onset Unknown: No - VTE Deep Vein Thrombosis/Pulmonary Embolism Present on Admission: No
[2016-08-01] MEDS: SENNOSIDES/DOCUSATE SODIUM 1 TAB TABLET PO SCH (19:20)
[2016-08-02] MEDS: IPRATROPIUM/ALBUTEROL 3 ML AMPUL.NEB NEB SCH ×6 (03:36→23:24)
[2016-08-02] MEDS: CLINDAMYCIN 600 MG in DEXTROSE 5% IN WATER 50 ML IV SCH ×3 (05:47→22:27)
[2016-08-02 06:18] LABS: Basophils # (Auto) 0 K/mcL (0.0-0.3); Basophils % (Auto) 0.5 % (0.0-2.0); Eosinophils # (Auto) 0 K/mcL (0.0-0.7); Eosinophils % (Auto) 0.3 % (0.0-7.0); Granulocytes % (Auto) 78.8 % (38.0-78.0); Lymphocytes # (Auto) 0.4 K/mcL (1.5-4.8); Mean Cell Volume 102.9 fL (80.0-100.0); Mean Corpuscular Hemoglobin 31.9 pg (26.0-34.0); Monocytes # (Auto) 0.3 K/mcL (0.1-0.9); Monocytes % (Auto) 8.4 % (1.0-9.0); Platelet Count 65 K/mcL (140-440); RBC 2.63 M/mcL (4.00-5.20); Red Cell Distribution Width 25.5 % (11.5-14.5)
[2016-08-02 06:28] LABS: ALT/SGPT 23 U/l (0-40); Albumin 2.6 gm/dL (3.2-5.2); Albumin/Globulin Ratio 1.5 (1.0-2.3); Alkaline Phosphatase 56 U/L (39-117); Bilirubin,Direct 0.2 mg/dL (0.0-0.3); Blood Urea Nitrogen 28 mg/dl (8-23); Gamma Glutamyl Transpeptidase 7 U/L (5-36); Magnesium 2.2 mg/dL (1.6-2.5); Phosphorous 3.9 mg/dL (2.7-4.5); Uric Acid 2.9 mg/dL (2.5-8.0)
[2016-08-02] MEDS ORDERED: 0.9 % SODIUM CHLORIDE 10 ML SYRINGE IV PRN (07:39)
[2016-08-02] MEDS: AMIODARONE HCL 200 MG TABLET PO SCH (08:16)
[2016-08-02] MEDS: 0.9 % SODIUM CHLORIDE 10 ML SYRINGE IV SCH ×3 (08:17→22:31)
[2016-08-02] MEDS: POTASSIUM CHLORIDE 20 MEQ/15 ML ML PO SCH ×2 (08:18→17:54)
[2016-08-02] MEDS: PANTOPRAZOLE 40 MG VIAL IV SCH (08:18)
[2016-08-02] MEDS: BUDESONIDE 0.5 MG/2 ML AMPUL.NEB NEB SCH ×2 (09:18→20:19)
[2016-08-02] MEDS: FONDAPARINUX SODIUM 2.5 MG/0.5 ML SYRINGE SQ SCH (09:51)
[2016-08-02] MEDS: LENALIDOMIDE 2.5 MG PO SCH (09:51)
[2016-08-02] MEDS: predniSONE 20 MG TABLET PO SCH ×2 (09:52→20:07)
[2016-08-02] MEDS: LACTOBACILLUS 1 CAPSULE PO SCH ×2 (09:52→20:06)
[2016-08-02] MEDS: CASPOFUNGIN ACETATE 50 MG in 0.9 % SODIUM CHLORIDE 250 ML IV SCH (09:52)
[2016-08-02] MEDS: MULTIVIT,THER IRON,CA,FA & MIN 1 TABLET PO SCH (09:53)
[2016-08-02] MEDS: DULoxetine 30 MG CAPSULE PO SCH (09:53)
[2016-08-02] MEDS: FUROSEMIDE 20 MG TABLET PO SCH (09:53)
[2016-08-02] MEDS: NEUTRA PHOS 1 PACKET PO SCH ×2 (09:54→22:31)
[2016-08-02] MEDS: DOCUSATE SODIUM 100 MG CAPSULE PO SCH ×2 (09:54→20:07)
[2016-08-02] MEDS: FLUTICASONE PROPIONATE SPRAY.NAS NS SCH ×2 (09:54→22:31)
[2016-08-02] MEDS: ALPRAZolam 0.5 MG TABLET PO SCH ×2 (09:55→22:31)
--- NOTE | 2016-08-02 14:02 | Internal Med Progress Note ---
Medical - PN: Subj Patient information: Note initiated : 08/02/16 at 2:02 pm Service Date, if different from initiated Date: [] Patient: Rochelle Olivas 85 y/o F admitted on 07/21/16 for SOB/Hypoxic Respiratory Failure, Septic Shock, PNA. Chief Complaint: [] Interval history: history of present illness: 07/21- Patient admitted with septic shock/bilateral pneumonia. Started on vasopressors. nearly obtunded status. On broad antibiotic coverage/noninvasive ventilation in light of hypoxic respiratory failure. Critically ill. [place] 2 score over 20 indicating high-risk mortality. Family aware. patient is no code and hence intubation on an option. aggressive and close hemodynamic monitoring and management in ICU 07/22-patient off pressors. Improving urine output. Off BiPAP and 5 L oxygen. More alert and responsive. still unable to talk in full sentences. Family at bedside. Discussed clinical findings including chest imaging blood gas hemodynamic status with family and plan of care. Patient remains high-risk mortality given massive aspiration with bilateral pneumonia leading to hypoxia respiratory failure. Continue close ICU monitoring 07/23-patient off BiPAP. On 2 L oxygen. More alert and lucid in unresponsive.. Speech therapy ongoing. Complaint of central chest pain on swallowing. On level to nectar hick diet per ST. Esophagram ordered to rule out stenosis as a cause of recurrent aspiration. No overnight fever chills nausea vomiting. afebrile. white count of 4000. Platelets of 139. DC heparin . Started SCDs. case discussed with patient's son and possible transfer to SNF in 48 hours due to significant clinical improvement. Transfer to medical floor in 24 hours. 07/30/16: As noted above, this patient presented to the emergency room on July 21, with bilateral pneumonia and respiratory failure. She was treated aggressively with BiPAP and pulmonary toilet, IV fluids and IV antibiotics. She appears to have had a recurrent aspiration pneumonia. She has been improving fairly steadily although remains extremely weak. she had previously stated she would not accept BiPAP or deep suctioning for her symptoms, but today is feeling like she is getting a bit better, and so she would accept those if they were needed to make her better. -she has continued to have occasional episodes of sudden desaturations, which appear to be consistent with a mucous plug. - several days into her hospital stay, her platelets dropped dramatically. 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 Heparin has been withheld since then, and her platelet count is slowly recovering. There are no overt signs of bleeding. -he patient does have signs and symptoms of aspiration with eating. Barium swallow was ordered, but apparently the hospitalization out of the area and is on back order until about August 04. The patient has been very resistant to following a dysphasia diet with thickened liquids. -the patient also has long-standing myelodysplasia with chronic anemia. She has had some heme positive stools lately, and has been complaining of painful swallowing. There is suspicion of possible [place] esophagitis. She has been started on treatment for this, and thinks that her odynophagia is a bit improved today. -after discussion with oncology, the patient had Eliquis held, and was continued on a arixtra. today,the patient reports she still feels quite weak, but she does feel that she is a bit better than yesterday. She was able to eat some breakfast yesterday and today, although is not a fan of her choices. She does feel that she is breathing better, and now says that she would probably except suctioning and BiPAP if that was needed to help improve her breathing. I briefly discussed with her whether or not she wants to continue with aggressive care, or consider comfort care, and she indicated that at this time she would like to continue with aggressive care. -07/31/16: today, the patient is feeling more fatigued She was not able to eat much for breakfast today. Her 2 granddaughters are visiting today, and they also noticed that she is quite fatigued. However, when asked about continued aggressive care, the patient says she would like to continue with this. She otherwise denies fever or chills. She's not had any significant coughing episodes or increased dyspnea today. She denies chest pain, abdominal pain, nausea or vomiting, diarrhea or dysuria. -Kidney tests look like she is once again becoming a bit dehydrated, and sodium is also climbed a bit. -platelets have dipped a bit again today. Heparin antibody test were negative. 08/01/16: Last night, the patient had a sudden decline in her respiratory status , with dropping O2 saturations and decreased responsiveness. Oxygenation gradually improved after receiving 2 nebulizer treatments, but she was maintained on a 7-8L mask overnight. This morning she is feeling a bit better. She denies fever or chills significant cough or increase in her usual baseline shortness of breath. She denies GI or symptoms. She still really has no appetite. chest x-ray last night continued to show by basilar infiltrates, as well as possible mildpulmonary vascular congestion. 08/02/16: today, the patient continues fairly fatigued, although she is more alert this morning. She has no particular complaints other than fatigue. She denies fever or chills, chest pain or palpitations or significant cough. She continues with her baseline shortness of breath. She continues with very poor appetite. I spoke with her son again today, and reiterated that it is highly likely that her pneumonia will come back as soon as we stop her antibiotics. I think an appropriate plan would be to send her back to her halfway tomorrow, as she has requested, and complete this course of antibiotics, but then moved to comfort care. I explained otherwise she will just continue on this merry-go- round up being readmitted over and over for recurrent aspiration pneumonia, which is very complicated by her severe lung disease and myelodysplasia. - Constitutional Vitals: Vital Signs Temp Pulse Resp BP Pulse Ox 98.3 F 100 H 16 100/69 92 08/02/16 11:49 08/02/16 11:49 08/02/16 11:49 08/02/16 11:49 08/02/16 11:49 Period Temp Pulse Resp BP Sys/[place] Pulse Ox Last 24 Hr 96.0 F-98.8 F 69-121 10-24 99-106/65-72 91-97 Intake and Output 08/02/16 08/02/16 08/02/16 05:59 13:59 21:59 Intake Total Output Total Balance Intake & Output: Intake & Output 08/02/16 08/02/16 08/02/16 05:59 13:59 21:59 Intake Total Output Total Balance Intake: IV Dextrose 5% in Water 50 ml @ 100 mls/hr IV Q8H TIFFANY with Cleocin 600 mg Rx#:[id number] Oral Output: Urine Catheter Amount Exam: on exam,the patient appears quite fatigued. She is otherwise in no acute distress. Neck shows no obvious JVD. Cardiac exam shows regular rate and rhythm. Lung exam show markedly decreased breath sounds throughout, but some faint crackles at the left base. Abdomen is soft and nontender. Extremities show significant dependent edema. On neurologic exam patient is awake and alert, and exam is grossly nonfocal. Medical - PN: Obj Da - Labs CBC & Chem 7: 08/02/16 05:01 08/02/16 05:01 Labs: Abnormal Lab Results 08/02/16 08/02/16 08/01/16 05:01 05:01 05:35 WBC 3.3 L RBC 2.63 L Hgb 8.4 L Hct 27.1 L MCV 102.9 H MCHC RDW 25.5 H Plt Count 65 L MPV 12.6 H Gran % 78.8 H Lymph % (Auto) 12.0 L [place] % (Auto) Lymph # 0.4 L Sodium 149 H 149 H Carbon Dioxide 38 H 36 H Anion Gap 5.0 L BUN 28 H 31 H Glucose 144 H 173 H Calcium 8.4 L 8.5 L Total Protein 4.3 L 4.7 L Albumin 2.6 L 2.7 L Globulin 1.7 L 2.0 L 08/01/16 07/31/16 07/31/16 05:35 04:50 04:50 WBC 4.0 L RBC 2.78 L 2.83 L Hgb 8.8 L 8.9 L Hct 28.4 L 28.9 L MCV 102.1 H 102.2 H MCHC 30.7 L RDW 25.3 H 25.8 H Plt Count 63 L 58 L MPV 10.6 H Gran % Lymph % (Auto) 12.1 L 15.3 L [place] % (Auto) 9.3 H Lymph # 0.5 L 0.7 L Sodium 149 H Carbon Dioxide 37 H Anion Gap 6.0 L BUN 32 H Glucose 132 H Calcium 8.5 L Total Protein 4.6 L Albumin 2.7 L Globulin 1.9 L 07/31/16: Portable chest x-ray: Shows moderate bibasilar infiltrates and small effusion with slight improvement on the right side. Consider aspiration. Mild underlying CHF. heparin-induced antibody screens are both negative. Blood cultures are negative so far. chest x-ray from July 27, 2016: Shows moderate right and small left basilar consolidated infiltrates and effusions worsening since 4 days prior to that. Consistent with aspiration. Nasal swab is positive for MRSA. Meds: Medications Acetaminophen (Tylenol) 650 mg PO Q4-6HP PRN PRN Reason: PAIN/FEVER > 101 Albuterol Sulfate (Ventolin) 2.5 mg NEB Q1HP PRN PRN Reason: Shortness Of Breath Last Admin: 08/01/16 06:09 Dose: 2.5 mg Albuterol/Ipratropium (Duoneb) 3 ml NEB Q4HRT [facility] Last Admin: 08/02/16 11:30 Dose: 3 ml Alprazolam (Xanax) 0.5 mg PO BID [facility] Last Admin: 08/02/16 09:55 Dose: Not Given Amiodarone HCl (Cordarone) 100 mg PO [facility] Last Admin: 08/02/16 08:16 Dose: 100 mg Bisacodyl (Dulcolax) 10 mg AL Q2-3DAYS PRN PRN Reason: Constipation Budesonide (Pulmicort) 0.5 mg NEB Q12 [facility] Last Admin: 08/02/16 09:18 Dose: 0.5 mg Docusate Sodium (Colace) 100 mg PO BID [facility] Last Admin: 08/02/16 09:54 Dose: Not Given Duloxetine HCl (Cymbalta) 30 mg PO DAILY [facility] Last Admin: 08/02/16 09:53 Dose: 30 mg Fluticasone Propionate (Flonase) 1 spray NS BID [facility] Last Admin: 08/02/16 09:54 Dose: Not Given Fondaparinux (Arixtra) 2.5 mg SQ DAILY [facility] Last Admin: 08/02/16 09:51 Dose: 2.5 mg Furosemide (Lasix) 20 mg PO DAILY [facility] Last Admin: 08/02/16 09:53 Dose: 20 mg Caspofungin 50 mg/ Sodium (Chloride) 250 mls @ 250 mls/hr IV DAILY [facility] Last Admin: 08/02/16 09:52 Dose: 250 mls/hr Clindamycin Phosphate 600 mg/ (Dextrose) 54 mls @ 100 mls/hr IV Q8H [facility] Last Admin: 08/02/16 05:47 Dose: 100 mls/hr Magnesium Sulfate (Magnesium Sulfate) 2 gm in 50 mls @ 50 mls/hr IV UD PRN PRN Reason: MG = or < 1.7 Acetaminophen (Ofirmev) 1,000 mg in 100 mls @ 200 mls/hr IV Q6HP PRN PRN Reason: PAIN/FEVER > 101 Iron Carb/Multivit/[place]/Folic Acid (Multivitamin W/Minerals) 1 tab PO DAILY [facility] Last Admin: 08/02/16 09:53 Dose: 1 tab Lactobacillus Rhamnosus (Culturelle) 1 cap PO BID [facility] Last Admin: 08/02/16 09:52 Dose: 1 cap Magnesium Hydroxide (Milk Of Magnesia) 30 ml PO HSP PRN PRN Reason: Constipation Ondansetron HCl (Zofran) 4 mg IV Q4-6HP PRN PRN Reason: Nausea And Vomiting Pantoprazole Sodium (Protonix) 40 mg IV QAMAC [facility] Last Admin: 08/02/16 08:18 Dose: 40 mg Lenalidomide ( (Revlimid) 2.5 Mg) 1 dose PO DAILY [facility] Last Admin: 08/02/16 09:51 Dose: 1 dose Potassium Chloride (Potassium Chloride) 20 meq PO BIDCC [facility] Last Admin: 08/02/16 08:18 Dose: 20 meq Potassium/Phosphorus/Sodium (Neutra Phos) 2 packet PO BID [facility] Last Admin: 08/02/16 09:54 Dose: 2 packet Prednisone (Prednisone) 50 mg PO BID [facility] Last Admin: 08/02/16 09:52 Dose: 50 mg Senna/Docusate Sodium (Senna Plus Tablet) 1 tab PO HS [facility] Last Admin: 08/01/16 19:20 Dose: 1 tab Sodium Chloride (Saline Flush) 10 ml IV Q8 [facility] Last Admin: 08/02/16 08:17 Dose: 10 ml Sodium Chloride (Saline Flush) 10 ml IV UD PRN PRN Reason: After meds Trazodone HCl (Desyrel) 50 mg PO HSP PRN PRN Reason: Insomnia Medical - PN: A/P - Time Spent With Patient Total time spent is greater than 50% in coordination of care (as documented) at patient's floor/unit and/or counseling patient: - Narrative A/P Narrative: #1. Pulmonary. 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 She has responded to aggressive treatment for her pneumonia and sepsis. She remains quite weak, but oxygen requirements have decreased. Speech therapy has continued to work with her, and recommended a dysphagia type diet, which the patient is resistant to. We have tried to get a barium swallow, but that is on hold for now. -the patient appears to be declining slowly over the last several days. i discussed this with her son, and we again discussed that aggressive measures probably are not appropriate. she is now on day 14 of IV antibiotics, and I think it is probably time to stop, as I don't see any reason to believe that we are going to cure her permanently. Her son seems agreeable to sending her back to her halfway tomorrow and then moved to comfort care. -Continue IV clindamycin tonight, and then discontinue..-Continue IV solu-Medrol , duo nebs, oxygen for COPD.continue budesonide. #2. Hematology. -The patient had a fairly dramatic drop in platelets, originally thought due to heparin-induced thrombocytopenia. However antibody tests are negative for this. Regardless, platelet count is slowly rebounding off heparin. -Patient has myelodysplasia with chronic anemia. She does have heme positive stools, but has also been on iron. Hematocrit has been drifting down just a bit , which may be due to frequent blood draws. Hematology apparently advised that she could go back to Eliquis once her platelet count is improved. -I think if we all agree on comfort care, she does not need to have her Eliquis resumed. #3.cardiac. -atrial fibrillation with controlled rate This has been fairly stable. Continue amiodarone. #4. GI. patient has odynophagia, and could very well have candidal esophagitis.she has been started on treatment for this, and symptoms do seem to be improving. #5. CODE STATUS: Patient has a DNR CODE STATUS. She would like to continue with current treatment . #6. DVT prophylaxis:continue fondaparinux, per hematology. #7. I also reviewed her skin findings with Dr. Mendenhall of wound care. He thinks are swollen feet and skin changes are primarily due to a low flow state, and just recommends foot elevation, and nothing else more aggressive. #8. Renal. BUN/creatinine creatinine crept up a bit, and I did start IV fluids , it appears then she developed some mild pulmonary vascular congestion. she will just have to eat and drink as much as she feels up to. #9. Disposition: if there is not much change in her status over the next few days, we will likely transition her back to halfway care. Again, depending on her progress, we may need to re-address moving to a comfort care status. #10. She also has a small ulcer near her rectum, that she has been complaining about tenderness of today. The nurses are using a special dressing, but also requested pain medications. I will try her on some oral morphine solution, as this should be easy to use when she gets back to the halfway. approximately 25 minutes was spent reviewing the patient's chest results, interviewing and examining her, reviewing her case with staff as well as with her son today. Medical - PN: Qual - Stroke Symptom Onset Unknown: No - VTE Deep Vein Thrombosis/Pulmonary Embolism Present on Admission: No
[2016-08-02] MEDS: SENNOSIDES/DOCUSATE SODIUM 1 TAB TABLET PO SCH (20:07)
[2016-08-02] MEDS: morphine 20 MG/ML ORAL.CONC PO PRN (20:37)
[2016-08-03] MEDS: IPRATROPIUM/ALBUTEROL 3 ML AMPUL.NEB NEB SCH ×3 (02:54→10:35)
[2016-08-03] MEDS: morphine 20 MG/ML ORAL.CONC PO PRN (05:13)
[2016-08-03] MEDS: 0.9 % SODIUM CHLORIDE 10 ML SYRINGE IV SCH (05:18)
[2016-08-03] MEDS: CLINDAMYCIN 600 MG in DEXTROSE 5% IN WATER 50 ML IV SCH (05:18)
[2016-08-03] MEDS: PANTOPRAZOLE 40 MG VIAL IV SCH (06:34)
[2016-08-03] MEDS: BUDESONIDE 0.5 MG/2 ML AMPUL.NEB NEB SCH (07:33)
[2016-08-03] MEDS: FUROSEMIDE 20 MG TABLET PO SCH (09:18)
[2016-08-03] MEDS: MULTIVIT,THER IRON,CA,FA & MIN 1 TABLET PO SCH (09:18)
[2016-08-03] MEDS: DOCUSATE SODIUM 100 MG CAPSULE PO SCH (09:18)
[2016-08-03] MEDS: ALPRAZolam 0.5 MG TABLET PO SCH (09:18)
[2016-08-03] MEDS: FONDAPARINUX SODIUM 2.5 MG/0.5 ML SYRINGE SQ SCH (09:18)
[2016-08-03] MEDS: DULoxetine 30 MG CAPSULE PO SCH (09:18)
[2016-08-03] MEDS: AMIODARONE HCL 200 MG TABLET PO SCH (09:19)
[2016-08-03] MEDS: NEUTRA PHOS 1 PACKET PO SCH (09:19)
[2016-08-03] MEDS: LACTOBACILLUS 1 CAPSULE PO SCH (09:20)
[2016-08-03] MEDS: predniSONE 20 MG TABLET PO SCH (09:20)
[2016-08-03] MEDS: POTASSIUM CHLORIDE 20 MEQ/15 ML ML PO SCH (09:21)
[2016-08-03] MEDS: FLUTICASONE PROPIONATE SPRAY.NAS NS SCH (09:22)
[2016-08-03] MEDS: LENALIDOMIDE 2.5 MG PO SCH (09:22)
[2016-08-03] MEDS: CASPOFUNGIN ACETATE 50 MG in 0.9 % SODIUM CHLORIDE 250 ML IV SCH (09:24)
--- NOTE | 2016-08-03 12:36 | Discharge Summary ---
Medical - DS: Prov Patient information: Note initiated : 08/03/16 at 12:26 pm Service Date, if different from initiated Date: [] Patient: Rochelle Olivas 85 y/o F admitted on 07/21/16 for SOB/Hypoxic Respiratory Failure, Septic Shock, PNA. Chief Complaint: [] Date of admission: 07/21/16 12:23 Discharge date: 08/03/16 Primary care physician: [dr. Aubrey Meek phone #[phone]/11/28] Admitting clinician: Ananth Peterson Consults: 07/30/16 09:42 Consult to Physician [CONS] Routine Comment: wound right ankle Consulting Provider: Parker Mendenhall Reason For Exam: Physician to Consult Attending physician on discharge: [facility] - DS: Meds - Discharge Medications Prescriptions: ALPRAZolam [Xanax] 0.5 mg PO BID 30 Days morphine 2 - 5 mg PO Q2HP PRN #120 oral.conc PRN Reason: Pain predniSONE [Prednisone] 40 mg PO BID #1 tablet Active and Home Medications: Home Medications arformoterol 15 mcg/2 mL solution for nebulization 2 ml INHALATION BID 30 Days 08/06/15 [Rx Confirmed 07/21/16 Last Taken Unknown] budesonide 0.5 mg/2 mL suspension for nebulization 0.5 mg INHALATION BID 90 Days 08/06/15 [Rx Confirmed 07/21/16 Last Taken 07/21/16 05:30] ferrous sulfate 325 mg (65 mg iron) tablet 325 mg PO BID tab 04/29/16 [History Confirmed 07/21/16 Last Taken 07/21/16 0800] ALPRAZolam [Xanax] 0.5 mg PO BID 30 Days 06/03/16 [Rx Confirmed 07/21/16 Last Taken Unknown] Amiodarone HCl [Pacerone] 100 mg PO DAILY #30 tab 06/03/16 [Rx Confirmed Last Taken 07/21/16 08:00] Apixaban [Eliquis] 2.5 mg PO BID #60 tab 06/03/16 [Rx Confirmed 07/21/16 Last Taken 07/21/16 0800] DULoxetine [Cymbalta] 30 mg PO DAILY #30 cap 06/03/16 [Rx Confirmed 07/21/16 Last Taken 07/21/16 0800] Fluticasone Propionate [Flonase] 1 spray NS BID #1 spray.maury 06/03/16 [Rx Confirmed 07/21/16 Last Taken 07/21/16 0800] Furosemide [Lasix] 20 mg PO BID #60 tab 06/03/16 [Rx Confirmed 07/21/16 Last Taken 07/21/16 0800] Vitamin D3 2,000 unit PO DAILY #0 tab 06/03/16 [Rx Confirmed 07/21/16 Last Taken 07/21/16 0800] ipratropium bromide 0.02 % solution for inhalation 2.5 ml INHALATION TID ml [History Confirmed 07/21/16 Last Taken 07/21/16 08:00] lactobacillus combination no.8 3 billion cell capsule 3,000 mmu cells PO QDAY # 14 cap 07/03/16 [Rx Confirmed 07/21/16 Last Taken Unknown] Clindamycin HCl [Cleocin] 300 mg PO TID #30 capsule 07/15/16 [Rx Confirmed 07/21 Last Taken 07/21/16 08:00] predniSONE [Prednisone] 20 mg PO QAM 07/21/16 [History Confirmed 07/21/16 Last Taken 07/21/16 08:00] Medical - DS: Hosp Hospital course: Mr. Olivas is a 85 year old male history of present illness: 07/21- Patient admitted with septic shock/bilateral pneumonia. Started on vasopressors. nearly obtunded status. On broad antibiotic coverage/noninvasive ventilation in light of hypoxic respiratory failure. Critically ill. [place] 2 score over 20 indicating high-risk mortality. Family aware. patient is no code and hence intubation on an option. aggressive and close hemodynamic monitoring and management in ICU 3/1-patient off pressors. Improving urine output. Off BiPAP and 5 L oxygen. More alert and responsive. still unable to talk in full sentences. Family at bedside. Discussed clinical findings including chest imaging blood gas hemodynamic status with family and plan of care. Patient remains high-risk mortality given massive aspiration with bilateral pneumonia leading to hypoxia respiratory failure. Continue close ICU monitoring 3/2-patient off BiPAP. On 2 L oxygen. More alert and lucid in unresponsive.. Speech therapy ongoing. Complaint of central chest pain on swallowing. On level to nectar hick diet per ST. Esophagram ordered to rule out stenosis as a cause of recurrent aspiration. No overnight fever chills nausea vomiting. afebrile. white count of 4000. Platelets of 139. DC heparin . Started SCDs. case discussed with patient's son and possible transfer to SNF in 48 hours due to significant clinical improvement. Transfer to medical floor in 24 hours. 07/30/16: As noted above, this patient presented to the emergency room on July 21, with bilateral pneumonia and respiratory failure. She was treated aggressively with BiPAP and pulmonary toilet, IV fluids and IV antibiotics. She appears to have had a recurrent aspiration pneumonia. She has been improving fairly steadily although remains extremely weak. she had previously stated she would not accept BiPAP or deep suctioning for her symptoms, but today is feeling like she is getting a bit better, and so she would accept those if they were needed to make her better. -she has continued to have occasional episodes of sudden desaturations, which appear to be consistent with a mucous plug. - several days into her hospital stay, her platelets dropped dramatically. 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 Heparin has been withheld since then, and her platelet count is slowly recovering. There are no overt signs of bleeding. -he patient does have signs and symptoms of aspiration with eating. Barium swallow was ordered, but apparently the hospitalization out of the area and is on back order until about August 04. The patient has been very resistant to following a dysphasia diet with thickened liquids. -the patient also has long-standing myelodysplasia with chronic anemia. She has had some heme positive stools lately, and has been complaining of painful swallowing. There is suspicion of possible Crystal esophagitis. She has been started on treatment for this, and thinks that her odynophagia is a bit improved today. -after discussion with oncology, the patient had Eliquis held, and was continued on a arixtra. today,the patient reports she still feels quite weak, but she does feel that she is a bit better than yesterday. She was able to eat some breakfast yesterday and today, although is not a fan of her choices. She does feel that she is breathing better, and now says that she would probably except suctioning and BiPAP if that was needed to help improve her breathing. I briefly discussed with her whether or not she wants to continue with aggressive care, or consider comfort care, and she indicated that at this time she would like to continue with aggressive care. 08/03/16: over the last several days, the patient has not really shown any progress. She continues extremely fatigued, and has occasional bouts ofsevere shortness of breath and coughing. Her appetite is extremely poor, and when she does try to eat, she tends to have aspiration issues. he is really not wanting to continue with aggressive measures, and certainly does not want a feeding tube. She is fighting severe lung disease, an addition to recurrent aspiration pneumonia, and myelodysplasia with severe anemia as well as recent thrombocytopenia. i discussed with her that I think it's not appropriate to continue treating her for pneumonia week after week. I suggested that we send her back to her nursing facility and just try to keep her comfortable, and she seems agreeable to this. Have also reviewed this again today with her son, and he also thinks this is the best course of action. He was going to review it again with her today, as she has a tendency to change her mind every hour or 2 about whatever you ask her. At this point I don't think it's appropriate to readmit her foracute illness, especially acute pneumonia, as this is not a scenario that is fixable. She will continue to aspirate for the rest of her life. current medications: Medications Acetaminophen (Tylenol) 650 mg PO Q4-6HP PRN PRN Reason: PAIN/FEVER > 101 Albuterol Sulfate (Ventolin) 2.5 mg NEB Q1HP PRN PRN Reason: Shortness Of Breath Last Admin: 08/01/16 06:09 Dose: 2.5 mg Albuterol/Ipratropium (Duoneb) 3 ml NEB Q4HRT [facility] Last Admin: 08/02/16 11:30 Dose: 3 ml Alprazolam (Xanax) 0.5 mg PO BID [facility] Last Admin: 08/02/16 09:55 Dose: Not Given Amiodarone HCl (Cordarone) 100 mg PO [facility] Last Admin: 08/02/16 08:16 Dose: 100 mg Bisacodyl (Dulcolax) 10 mg [place] Q2-3DAYS PRN PRN Reason: Constipation Budesonide (Pulmicort) 0.5 mg NEB Q12 [facility] Last Admin: 08/02/16 09:18 Dose: 0.5 mg Docusate Sodium (Colace) 100 mg PO BID [facility] Last Admin: 08/02/16 09:54 Dose: Not Given Duloxetine HCl (Cymbalta) 30 mg PO DAILY [facility] Last Admin: 08/02/16 09:53 Dose: 30 mg Fluticasone Propionate (Flonase) 1 spray NS BID [facility] Last Admin: 08/02/16 09:54 Dose: Not Given Fondaparinux (Arixtra) 2.5 mg SQ DAILY [facility] Last Admin: 08/02/16 09:51 Dose: 2.5 mg Furosemide (Lasix) 20 mg PO DAILY [facility] Last Admin: 08/02/16 09:53 Dose: 20 mg Caspofungin 50 mg/ Sodium (Chloride) 250 mls @ 250 mls/hr IV DAILY [facility] Last Admin: 08/02/16 09:52 Dose: 250 mls/hr Clindamycin Phosphate 600 mg/ (Dextrose) 54 mls @ 100 mls/hr IV Q8H [facility] Last Admin: 08/02/16 05:47 Dose: 100 mls/hr Magnesium Sulfate (Magnesium Sulfate) 2 gm in 50 mls @ 50 mls/hr IV UD PRN PRN Reason: MG = or < 1.7 Acetaminophen (Ofirmev) 1,000 mg in 100 mls @ 200 mls/hr IV Q6HP PRN PRN Reason: PAIN/FEVER > 101 Iron Carb/Multivit/Denhoff/Folic Acid (Multivitamin W/Minerals) 1 tab PO DAILY [facility] Last Admin: 08/02/16 09:53 Dose: 1 tab Lactobacillus Rhamnosus (Culturelle) 1 cap PO BID [facility] Last Admin: 08/02/16 09:52 Dose: 1 cap Magnesium Hydroxide (Milk Of Magnesia) 30 ml PO HSP PRN PRN Reason: Constipation Ondansetron HCl (Zofran) 4 mg IV Q4-6HP PRN PRN Reason: Nausea And Vomiting Pantoprazole Sodium (Protonix) 40 mg IV QAMAC [facility] Last Admin: 08/02/16 08:18 Dose: 40 mg Lenalidomide ( (Revlimid) 2.5 Mg) 1 dose PO DAILY [facility] Last Admin: 08/02/16 09:51 Dose: 1 dose Potassium Chloride (Potassium Chloride) 20 meq PO BIDCC [facility] Last Admin: 08/02/16 08:18 Dose: 20 meq Potassium/Phosphorus/Sodium (Neutra Phos) 2 packet PO BID [facility] Last Admin: 08/02/16 09:54 Dose: 2 packet Prednisone (Prednisone) 50 mg PO BID [facility] Last Admin: 08/02/16 09:52 Dose: 50 mg Senna/Docusate Sodium (Senna Plus Tablet) 1 tab PO HS [facility] Last Admin: 08/01/16 19:20 Dose: 1 tab Sodium Chloride (Saline Flush) 10 ml IV Q8 [facility] Last Admin: 08/02/16 08:17 Dose: 10 ml Sodium Chloride (Saline Flush) 10 ml IV UD PRN PRN Reason: After meds Trazodone HCl (Desyrel) 50 mg PO HSP PRN PRN Reason: Insomnia physical exam: on exam,the patient appears quite fatigued. She is otherwise in no acute distress. Neck shows no obvious JVD. Cardiac exam shows regular rate and rhythm. Lung exam show markedly decreased breath sounds throughout, but some faint crackles at the left base. Abdomen is soft and nontender. Extremities show significant dependent edema. On neurologic exam patient is awake but sleepy, and exam is grossly nonfocal. ssessment and plan: #1. Pulmonary. 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 She has responded to aggressive treatment for her pneumonia and sepsis. She remains quite weak, but oxygen requirements have decreased. Speech therapy has continued to work with her, and recommended a dysphagia type diet, which the patient is resistant to. -the patient appears to be declining slowly over the last several days. i discussed this with her son, and we again discussed that aggressive measures probably are not appropriate. she is now on day 14 of IV antibiotics, and I think it is probably time to stop, as I don't see any reason to believe that we are going to cure her permanently. Her son seems agreeable to sending her back [facility] and then move to comfort care. -Continue, duo nebs, oxygen for COPD.continue budesonide. #2. Hematology. -The patient had a fairly dramatic drop in platelets, originally thought due to heparin-induced thrombocytopenia. However antibody tests are negative for this. Regardless, platelet count is slowly rebounding off heparin. -Patient has myelodysplasia with chronic anemia. She does have heme positive stools, but has also been on iron. Hematocrit has been drifting down just a bit , which may be due to frequent blood draws. Hematology apparently advised that she could go back to Eliquis once her platelet count is improved. -I think if we all agree on comfort care, she does not need to have her Eliquis resumed. #3.cardiac. -atrial fibrillation with controlled rate This has been fairly stable. Continue amiodarone. #4. GI. patient has odynophagia, and could very well have candidal esophagitis.she has been started on treatment for this, and symptoms do seem to be improving. #5. CODE STATUS: Patient has a DNR CODE STATUS. She would like to continue with current treatment . #6. DVT prophylaxis:continue fondaparinux, per hematology. #7. I also reviewed her skin findings with Dr. Mendenhall of wound care. He thinks are swollen feet and skin changes are primarily due to a low flow state, and just recommends foot elevation, and nothing else more aggressive. #8. Renal. BUN/creatinine creatinine crept up a bit, and I did start IV fluids , it appears then she developed some mild pulmonary vascular congestion. she will just have to eat and drink as much as she feels up to. #9. Disposition: transition her back to [facility]iary care. Again, depending on her progress, we may need to re-address moving to a comfort care status. #10. She also has a small ulcer near her rectum, that she has been complaining about tenderness of today. The nurses are using a special dressing, but also requested pain medications. I will try her on some oral morphine solution, as this should be easy to use when she gets back to the penit[facility]iary. approximately 35 minutes was spent reviewing the patient's chest results, interviewing and examining her, reviewing her case with staff as well as with her son today. Discharge diagnosis: recurrent aspiration pneumonia, severe COPD, myelodysplasia , recurrent aspi - Time Spent with Patient Total time spent providing and/or coordinating discharge services: Medical - DS: Exam - Constitutional Vitals: Vital Signs Temp Pulse Pulse Resp BP BP BP 08/03/16 12:00 97.2 F L 106 H 20 105/71 08/03/16 09:09 08/03/16 07:25 97.0 F L 103 H 18 131/82 08/03/16 07:00 100 H 16 08/03/16 06:53 18 08/03/16 03:20 98.3 F 92 H 18 114/65 08/02/16 23:41 98.7 F 103 H 20 101/62 08/02/16 23:25 93 H 18 08/02/16 20:21 08/02/16 20:20 106 H 08/02/16 20:19 106 H 18 08/02/16 19:43 97.5 F L 98 H 18 109/50 08/02/16 18:34 08/02/16 18:32 101 H 18 08/02/16 18:30 98 H 16 08/02/16 16:00 97.9 F 111 H 16 118/80 08/02/16 15:35 88 16 Pulse Ox 08/03/16 12:00 96 08/03/16 09:09 96 08/03/16 07:25 93 08/03/16 07:00 96 08/03/16 06:53 93 08/03/16 03:20 93 08/02/16 23:41 97 08/02/16 23:25 08/02/16 20:21 93 08/02/16 20:20 93 08/02/16 20:19 08/02/16 19:43 93 08/02/16 18:34 94 08/02/16 18:32 94 08/02/16 18:30 08/02/16 16:00 94 08/02/16 15:35 Intake and Output 08/02/16 08/03/16 08/03/16 21:59 05:59 13:59 Intake Total 54 / 54 108 / 108 Output Total 600 / 600 450 / 450 Balance -546 / -546 -342 / -342 Intake: IV 54 / 54 108 / 108 Dextrose 5% in Water 50 54 / 54 108 / 108 ml @ 100 mls/hr IV Q8H TIFFANY with Cleocin 600 mg Rx#:[id number] Output: Urine Catheter Amount 600 / 600 450 / 450 Other: Meal Dinner Breakfast Percent of Meal Consumed 25% 25% Feeding Ability Independent Weight 123 lb 8 oz Medical - DS: Data Labs on day of discharge: 07/31/16: Portable chest x-ray: Shows moderate bibasilar infiltrates and small effusion with slight improvement on the right side. Consider aspiration. Mild underlying CHF. heparin-induced antibody screens are both negative. Blood cultures are negative so far. chest x-ray from July 27, 2016: Shows moderate right and small left basilar consolidated infiltrates and effusions worsening since 4 days prior to that. Consistent with aspiration. Nasal swab is positive for MRSA. CBC & Chem 7: 08/02/16 05:01 08/02/16 05:01 Labs: Abnormal Lab Results 08/02/16 08/02/16 08/01/16 05:01 05:01 05:35 WBC 3.3 L RBC 2.63 L Hgb 8.4 L Hct 27.1 L MCV 102.9 H MCHC RDW 25.5 H Plt Count 65 L MPV 12.6 H Gran % 78.8 H Lymph % (Auto) 12.0 L [place] % (Auto) Lymph # 0.4 L Sodium 149 H 149 H Carbon Dioxide 38 H 36 H Anion Gap 5.0 L BUN 28 H 31 H Glucose 144 H 173 H Calcium 8.4 L 8.5 L Total Protein 4.3 L 4.7 L Albumin 2.6 L 2.7 L Globulin 1.7 L 2.0 L 08/01/16 07/31/16 07/31/16 05:35 04:50 04:50 WBC 4.0 L RBC 2.78 L 2.83 L Hgb 8.8 L 8.9 L Hct 28.4 L 28.9 L MCV 102.1 H 102.2 H MCHC 30.7 L RDW 25.3 H 25.8 H Plt Count 63 L 58 L MPV 10.6 H Gran % Lymph % (Auto) 12.1 L 15.3 L [place] % (Auto) 9.3 H Lymph # 0.5 L 0.7 L Sodium 149 H Carbon Dioxide 37 H Anion Gap 6.0 L BUN 32 H Glucose 132 H Calcium 8.5 L Total Protein 4.6 L Albumin 2.7 L Globulin 1.9 L Medical - DS: A/P - Patient/Caregiver Discharge Instructions Activity: as per physical therapy Diet: Dysphagia Mech Alter Additional Instructions: t is reasonable to attempt physical therapy and speech therapy at the penitentiary, to see what she can tolerate. Prescriptions: ALPRAZolam [Xanax] 0.5 mg PO BID 30 Days morphine 2 - 5 mg PO Q2HP PRN #120 oral.conc PRN Reason: Pain predniSONE [Prednisone] 40 mg PO BID #1 tablet Other Amb Orders: Physical Therapy at Discharge - General Location: Determined By Patient - Follow up Plan Follow up with: Aubrey Meek MD [Primary Care Provider] - Disposition: Xfer SNF Prognosis: Critical Rehab Potential: Critical I certify that the patient requires SNF services: Yes Overall status at discharge: patient is not back to baseline Medical - DS: Qual - VTE Deep Vein Thrombosis/Pulmonary Embolism Present on Admission: No
--- NOTE | 2016-08-03 13:19 | General Surgery Progress Note ---
Subjective Patient reports: other (I saw this patient on morning reounds with Mari RN, In patient wound care nurse. Patient was lucid and we had good conversation. I examined her feet.) Narrative: Note initiated : 08/03/16 at 1:12 pm Service Date, if different from initiated Date: [] Patient: Rochelle Olivas 85 y/o F admitted on 07/21/16 for SOB/Hypoxic Respiratory Failure, Septic Shock, PNA. Chief Complaint: [] Objective Temp Pulse Resp BP Pulse Ox 97.2 F L 106 H 20 105/71 96 08/03/16 12:00 08/03/16 12:00 08/03/16 12:00 08/03/16 12:00 08/03/16 12:00 AVSS. No changes in REE L/E Mottling of feet and toes has improved with elevation and protection using Duarte Boots. She had palpable pedal pulses. Right lower lateral leg ulcer is clean and dry. JEN or Sensi Lase studies were mentioned. However, she refused going through any more tests and non invasive studies. - Additional Data Intake & Output - Last 24 hours: Intake & Output 08/01/16 08/02/16 08/03/16 08/04/16 04:59 05:59 05:59 05:59 Intake Total 466 / 466 Output Total 1050 / 1050 Balance -584 / -584 Weight 123 lb 8 oz - Labs 08/02/16 05:01 08/02/16 05:01 Medical - PN: A/P - Time Spent With Patient Total time spent is greater than 50% in coordination of care (as documented) at patient's floor/unit and/or counseling patient: No acute interval changes from wound care point of view. TO continue current supportive care. Will only see her on PRN basis. 15 - 24 minutes (1) Pressure ulcer of back Status: Chronic Current Visit: Yes (2) Peripheral angiopathy in diseases classified elsewhere Problem details: Protective heel pads and off loading . Will NOT do any NON invasive vascular studies at this time. WIll follow and monitor progress. Status: Acute Current Visit: Yes
== END 2016-08-03 14:15 | DRG 871 ==
LOC: ED 09:30 → SUATTDRO 12:23 → ICU 12:23 → MEDSUR 07-25 14:38 → ICU 07-28 12:37 → MEDSUR 07-31 16:00
PROVIDERS: ADMIT Internal Medicine; ATTEND Internal Medicine